=== PATIENT | female | born 1980 | race Hispanic/Latino ===

== ENCOUNTER → 2018-07-13 15:29 | Outpatient (CLI) | payer BC, SELFPAY ==
[2018-07-16 10:10] LABS: HPV HC, High Risk Negative (Negative)
== END ==
PROVIDERS: Visit Provider Obstetrics & Gynecology
DX: Z12.4 Encounter for screening for malignant neoplasm of cervix (principal)
CPT/HCPCS: 87624; 88175; G0145

== ENCOUNTER 2018-10-24 21:40 | Emergency (ER) | payer BC, SELFPAY ==
[2018-10-24 21:41] VITALS: BP 234/84; PULSE 79; RESP 16; TEMP 36.6; O2SAT 99; BMI 18.0
[2018-10-24] MEDS: Diphth,Pertuss(Acell),Tet Vac 0.5 ML Vial IM (22:18)
--- NOTE | 2018-10-24 22:45 | ED.VISSUMM ---
- ER Visit Summary Date of Service: 10/24/18 Chief Complaint: Thumb laceration History of Present Illness: The patient is a 38 F presents to the emergency department with laceration to her right thumb. Patient is right-hand dominant. She was washing dishes, looked up at the window, and incised her finger on a knife. It happened earlier today. She cannot get to stop bleeding so she presented here. The patient is otherwise healthy. She is on no daily medications. She is unsure of her last tetanus. Physical Examination: Patient is a 1.5 cm laceration that is C-shaped the distal end of the thumb. There is a small flap. There is mild active bleeding. There is no pulsatile bleeding. Cap refill is normal. Two-point discrimination is preserved. Test Results: [] Emergency Department Course and Treatment: Patient's tetanus was updated. The wound was anesthetized and irrigated. There is no evidence of retained foreign body. It was closed with 4 simple interrupted suture. The patient tolerated this without issue. She was counseled on local wound care. She will be discharged for suture removal in 10 days. Treatment Plan: [] Disposition: Discharge Impression: 1. 1.5 cm thumb laceration with repair This note was generated with [employer] dictation software. It may contain incorrect words, spelling, and punctuation that were not noted in review of the chart prior to signing ED Disposition - Plan for ED Patient: Instructions: ED Laceration Hand Referrals: Care Physician,No Primary [Primary Care Provider] - 10 Day for suture removal
[2018-10-24 23:17] VITALS: RESP 18
== END 2018-10-24 23:18 | disposition home or self-care (01) ==
LOC: ED 22:33
PROVIDERS: Emergency Provider Emergency Medicine
DX: S61.011A Laceration without foreign body of right thumb without damage to nail, initial encounter (principal); W26.0XXA Contact with knife, initial encounter; Y93.G1 Activity, food preparation and clean up; Y92.9 Unspecified place or not applicable; Z72.0 Tobacco use
CPT/HCPCS: 12001; 90471; 90715; 99283

== ENCOUNTER 2019-07-12 13:04 | Emergency (ER) | payer BC, SELFPAY ==
[2019-07-12 13:05] VITALS: BP 137/90; PULSE 103; RESP 18; TEMP 36.8; O2SAT 96; BMI 18.8
[2019-07-12 13:56] LABS: Absolute Lymphocyte Count 3.27 X10^3/uL (0.83-4.51); Absolute Neutrophil Count 4.8 X10^3/uL (2.0-7.7); Basophil# 0.07 X10^3/uL; Basophil% 0.8 % (0-1); Eosinophil# 0.01 X10^3/uL; Eosinophils% 0.1 % (0-5); Hematocrit 44.5 % (37-47); Hemoglobin 14.8 g/dL (12.0-15.0); Lymphocyte # 3.27 X10^3/ul (4.0); Lymphocyte % 38.8 % (19-41); Mean Corp Hgb Conc 33.3 g/dL (32-36); Mean Corpuscular Hgb 33.6 pg (27.0-32.0); Mean Corpuscular Volume 101.1 fL (81-99); Mean Platelet Vol. 9.4 fl (6.2-12.0); Monocyte# 0.29 X10^3/uL; Monocyte% 3.4 % (0-10); NRBC Flagged by Analyzer 0 % (0-5); Neutrophil # 4.77 X10^3/uL (2.7-7.7); Neutrophil % 56.7 % (47-70); Platelet Count 275 K/mm3 (150-450); RBC Distribution Width CV 12.1 % (11.6-14.6); White Blood Count 8.4 K/mm3 (4.4-11.0)
[2019-07-12 13:59] LABS: Internal QC Validated? YES +Cl - CLEAR BKGD; Pregnancy, Serum, hCG Quali. NEGATIVE Negative
[2019-07-12 14:07] LABS: ALB/GLOB Ratio 1.3 RATIO (0.9-2.4); AST(SGOT) 46 U/L (15-37); Alanine Aminotransfer ALT/SGPT 50 U/L (13-56); Albumin, Serum 4.4 g/dL (3.2-5.0); Alkaline Phosphatase 71 U/L (45-117); Anion Gap 10 (5-15); BUN 8 mg/dL (7-18); Calcium,Total 9.4 mg/dL (8.5-10.1); Chloride 106 mmol/L (98-107); EST Glomerular Filtration Rate 84 mL/min (>60); Est Glom Filt Rate - Afr Amer 101 mL/min (>60); Estimated Creatinine Clearance 79.52 ml/min; Globulin 3.5 g/dL (2.2-4.2); Glucose 80 mg/dL (74-106); Potassium 3.5 mmol/L (3.5-5.1); Protein, Total 7.9 g/dL (6.4-8.2); Sodium Level 141 mmol/L (136-145)
--- NOTE | 2019-07-12 14:26 | ED.RN ---
PT WENT TO THE BATHROOM AFTER BEING TOLD WE NEEDED A URINE SAMPLE. PT FORGOT TO PEE IN A CUP
--- NOTE | 2019-07-12 14:55 | ED.RN ---
lab called [facility] of 305. dr pantoja aware
--- NOTE | 2019-07-12 14:56 | ED.VIS.PSYCH ---
History of Present Illness Chief Complaint: Substance Abuse Narrative: Patient presenting secondary to substance abuse, requesting alcohol detox, and potential depression and suicidal ideation. Patient has a longstanding history of drinking alcohol. She drinks daily, last drink was this morning. She drinks heavily, and she is stating that she wishes to stop drinking, and get some help. Patient's is able to tell me that recently this week, the patient was emotional and she grabbed his handgun stating that she was going to shoot herself. Currently the patient is not endorsing that she is suicidal but she is somewhat withdrawn. She denies any other coingestants at this time. She denies any hallucinations. Review of systems otherwise negative. Past Medical History - Allergies and Home Meds Allergies/Adverse Reactions: Allergies No Known Allergies Allergy (Verified 07/12/19 13:04) Primary Care Physician: Care Physician,No Primary [Primary Care Provider] - Past Medical History: - - Depression, alcoholism Smoking Status: Current every day smoker Review of Systems General: Denies: Chills, Fever, Sweats Eyes: Denies: Visual changes - bilaterally, Diplopia ENT: Denies: Rhinorrhea, Sore throat Cardiovascular: Denies: Chest pain, Palpitations Respiratory: Denies: Dyspnea, Cough, Dyspnea on exertion Gastrointestinal: Denies: Abdominal pain, Nausea, Vomiting, Diarrhea, Melena, Hematochezia Genitourinary: Denies: Dysuria, Hematuria, Frequency Musculoskeletal: Denies: Back pain, Extremity Pain Skin: Denies: Rash, Wounds Neurological: Denies: Headache, Weakness, Numbness Psych: Reports: Depression Physical Exam Vital Signs/Narrative: Vital Signs Temp Pulse Resp BP Pulse Ox 07/12/19 13:05 98.3 F 103 H 18 137/90 H 96 Inital Vital Signs reviewed: Yes General: Well nourished, Well developed Head: Normocephalic, Atraumatic Eyes: Perrl, EOMI ENT: Moist mucous membranes, No rhinorrhea Neck: Supple, Nontender Cardiovascular: Regular rate, Regular rhythm, No murmurs Respiratory: No distress, CTA bilaterally, Chest nontender Abdomen: Soft, Nontender, Nondistended, Normal bowel sounds Back: Nontender, Normal Inspection Extremities: Nontender, No Edema Skin: Normal color, No rash Neurological: Alert, Oriented x3, Cranial nerves II-XII grossly intact, Normal Strength, Normal Sensation Psych: Normal Speech Pattern, - - Patient is tearful, clearly intoxicated. Diagnostic/Tx/Re-eval Patient presented secondary to alcohol intoxication and requesting detox. Social work was able to speak with the patient's who also states that the patient put a gun to her head 3 days ago. There is also concern for suicidal ideation at this point, pink slip was filled out. Screening labs were unremarkable except for the patient's alcohol which obviously was significantly elevated. Social work is working on placing the patient for dual diagnosis of alcoholism and depression with suicidal ideation. ED Disposition - Plan for ED Patient: Diagnosis: Alcoholism, Suicidal ideation Referrals: Care Physician,No Primary [Primary Care Provider] -
--- NOTE | 2019-07-12 15:05 | CM.ED ---
SOCIAL WORK INFORMANT: DR. LEACH REASON FOR REFERRAL: MENTAL HEALTH/SUBSTANCE ABUSE-ALCOHOL CHIEF COMPLIANT: PATIENT PRESENTS TO EMERGENCY DEPARTMENT TEARFUL AND STATING LAST DRINK WAS THIS MORNING. PATIENT REPORTS WAS HELP WITH MENTAL HEALTH AND SUBSTANCE ABUSE. MARITAL STATUS: LIVING SITUATION: HOME WITH AND CHILDREN AGES, 20, 17 AND 16. 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 MENTAL HEALTH TREATMENT/HISTORY: PATIENT WITH HISTORY OF ANXIETY AND DEPRESSION. PATIENT IS PRESCRIBED ZOLOFT. STATES ANXIETY AND DEPRESSION BECAME WORSE 8 YEARS AGO WHEN PARENTS . ABUSE ISSUES: PATIENT DENIES ANY HISTORY OF EMOTIONAL, PHYSICAL OR SEXUAL ABUSE. SUBSTANCE ABUSE HISTORY: PATIENT WITH HISTORY OF ALCOHOL USE. REPORTS PATIENT WAS SOCIAL DRINKER WHEN SHE WAS YOUNGER AND OVER LAST 8 YEARS PATIENT HAS BECOME DEPENDENT AND ABUSES ALCOHOL. STATES HAS FOUND BOTTLES ALL THROUGHOUT THE HOUSE. PATIENT STATES DOES NOT WANT TO CONTINUE DRINKING. LAST DRINK WAS THIS MORNING. PATIENT BELIEVES TO BE DRINKING TO COPE WITH MENTAL HEALTH. MENTAL STATUS EXAM: ORIENTATION- PATIENT A&OX3 MEMORY- FAIR APPEARANCE/GENERAL BEHAVIOR: DISHEVELED, AGITATED MOOD/AFFECT: DEPRESSED, TEARFUL, ANXIOUS COMMUNICATION PATTERN: RESPONDS TO QUESTIONS THOUGHT PROCESS: APPROPRIATE JUDGMENT: FAIR RISK TO SELF/OTHERS: SUICIDAL: PATIENT DENIES SUICIDAL IDEATION, PLAN OR ATTEMPT. MET WITH THIS WORKER OUTSIDE OF ROOM AND STATES 4 DAYS AGO, PATIENT GRABBED 'S HAND GUN AND WAS MAKING SUICIDAL COMMENTS. REPORTS HAS GUNS AND AMMUNITION LOCKED UP. CONCERNS FOR PATIENT'S MENTAL HEALTH AND SAFETY. HOMICIDAL: PATIENT DENIES ANY HOMICIDAL IDEATION. ASSESSMENT: MET WITH PATIENT AND IN ROOM. INTRODUCED ROLE AND REASON FOR REFERRAL. PATIENT GAVE PERMISSION FOR THIS WORKER TO SPEAK OPENLY WITH PRESENT. PATIENT TEARFUL IN BED AND REQUESTING ANSWER MOST QUESTIONS. PATIENT DOES REPORTS HISTORY OF ANXIETY AND DEPRESSION AND IS PRESCRIBED ZOLOFT. PATIENT DENIES ANY SUICIDAL OR HOMICIDAL IDEATION. PATIENT STATES HAS BEEN ABUSING ALCOHOL AND LAST DRINK WAS THIS MORNING. PATIENT STATES WANTS HELP WITH MENTAL HEALTH AND SUBSTANCE ABUSE. MET WITH PATIENT'S OUTSIDE OF ROOM PER REQUEST. STATES 4 DAYS AGO PATIENT GRABBED HAND GUN AND WAS MAKING SUICIDAL COMMENTS. STATES PATIENT HAS BEEN MORE DEPRESSED AND CONTINUES TO SELF MEDICATE WITH ALCOHOL. BELIEVES PATIENT WOULD BENEFIT FROM INPATIENT TREATMENT. COLLABORATION WITH DR. LEACH. THIS WORKER TO MAKE REFERRAL FOR INPATIENT TREATMENT FOR DUAL DIAGNOSIS. PATIENT IS IN AGREEMENT WITH PLAN. PLAN: REFER FOR INPATIENT MENTAL HEALTH AND SUBSTANCE ABUSE TREATMENT. Rudi GODWIN MSW, TOP CARRIER.
[2019-07-12] MEDS: Ibuprofen 200 MG Tablet PO (15:44)
--- NOTE | 2019-07-12 15:45 | CM.ED ---
SOCIAL WORK REFERRAL HAS BEEN CALLED AND FAXED TO ARIANNA WITH [facility]. [facility] WILL REVIEW AND GET BACK TO THIS WORKER. AWAITING ACCEPTANCE. Rudi GODWIN, PERSONAL LINES APPRAISER, ASSISTANT FAMILY TEACHER.
[2019-07-12 15:58] VITALS: BP 110/83; PULSE 75; RESP 16; O2SAT 97
[2019-07-12 16:15] LABS: Amphetamine Urine VISTA NEGATIVE (<1000 ng/mL); Barbiturate Urine VISTA NEGATIVE (< 200 ng/mL); Benzodiazepine Urine VISTA NEGATIVE (< 200 ng/mL); Cocaine Urine VISTA NEGATIVE (< 300 ng/mL); Ecstacy Urine VISTA NEGATIVE (< 500 ng/mL); Methadone Urine VISTA NEGATIVE (< 300 ng/mL); PCP Urine VISTA NEGATIVE (< 25 ng/mL); THC Urine VISTA NEGATIVE (< 50 ng/mL); Vista UDS pH Range 5
--- NOTE | 2019-07-12 16:42 | CM.ED ---
SOCIAL WORK CALL FROM STEFFANIE WITH [facility], PATIENT ACCEPTED BY DR. LEWIS AND WILL BE UNDER THE CARE OF DR. TOBIAS TO THE 1600 UNIT BED 9B. NURSE TO CALL REPORT TO . STAFF UPDATED. PATIENT HAS BEEN PINK SLIPPED AND COPY FAXED. PATIENT AND UPDATED. ALL QUESTIONS ANSWERED, EMOTIONAL SUPPORT AND ENCOURAGEMENT PROVIDED. EXHIBIT BUILDER TO SET UP TRANSPORT. Rudi GODWIN, SEED ANALYST, CARD SCRAPER.
[2019-07-12 17:25] VITALS: BP 110/83; PULSE 75; RESP 16; O2SAT 97
== END 2019-07-12 18:53 ==
LOC: ED 14:25
PROVIDERS: Emergency Provider Emergency Medicine
DX: F10.20 Alcohol dependence, uncomplicated (principal); Y90.9 Presence of alcohol in blood, level not specified; F32.9 Major depressive disorder, single episode, unspecified; R45.851 Suicidal ideations; F17.200 Nicotine dependence, unspecified, uncomplicated
CPT/HCPCS: 80053; 80307; 80320; 84703; 85025; 99284; A4216; G0480

== ENCOUNTER 2019-07-21 09:00 | Outpatient (RCR) | payer OTHER, SELFPAY ==
--- NOTE | 2019-07-21 09:04 | BH.COMM_ITS ---
Communication Note - Communication with Client Communication Note: Therapist met with pt to complete initial paperwork. C ompleted [place] Suicide Risk assessment. No imminent risk noted. Client reported in the past month she has had passive suicidal ideation with one incident in which she was intoxicated and began to fear ability to maintain safety. Pt shared that she does not remember what exactly occurred but remembers texting her and telling him to buy a safe for their guns as she was unsure if she would be able to maintain her own safety otherwise. Reports that she believes she was to intoxicated to actually find the gun before her came home which prevented her from acting on these thoughts. Client reported her three sons and family keep her from killing herself. Client stated she has not had any suicidal thoughts since this incident occurring last week. No active suicidal ideations, plan, or intent. Motivated for treatment and hopeful. Client denies history of any suicide attempts or self-injurious behaviors. However, client does have a history of substance abuse via [place] which is an additional risk factor as she was intoxicated at the time of suicidal gesture occurring on the previous week. Client reports there are guns in the home; however, denies access to weapons as they have been locked in a safe by her . Reports ability to keep herself safe today. Agreeable to call crisis or go to the ER should she feel unable to keep herself safe.
--- NOTE | 2019-07-21 09:05 | BH.SGPN.GN ---
Behaviors/Verbalizations/Mental Status: [] Eye contact is good. Motor activity is appropriate. Appearance is casual. Speech is Appropriate. Mood is anxious. Affect is congruent. Thoughts are linear and logical. No evidence of psychosis. Reviewed daily check in sheet and no reports of suicidal ideations or intent. Client Response/Progress/Benefit: [] Pt participated when prompted. Introduced herself to the group as this was her first IOP group. Tearful. Stated that she is in the IOP to learn better ways to manage her anxiety and depression. Stated that she was sent to a bad place referring to inpatient hospitalization due to the severity of her symptoms which was a wake up for her. Group was welcoming and provided encouragement. No progress noted as this was first day in PHP. Will continue in PHP to maintain safety, prevent decompensation, and increase healthy coping. Narrative Note: []
--- NOTE | 2019-07-21 10:12 | BH.NA_ITS ---
Physical Data - Vital Signs Pulse Rate: 88 Respiratory Rate: 16 Blood Pressure: 98/58 - Height/Weight Height: 1.7 m Weight:: 56.699 kg Weight in Pounds: 125.0 lbs Current Medication Compliance - Medication Compliance Do you take your medication as prescribed?: Yes Nutritional History - Appetite Nutritional Instructions:: If client shows signs of a swallowing problem, weight change of 10 pounds or more in the last month, or is on a diabetic diet, the physician will review and request a dietitian consult, as appropriate. All unintentional weight loss will be referred to the physician for decision on need for dietitian consult. Describe your appetite:: Good - client states she has noticed an increase in her appetite since starting new medications during hospitalization at [facility] Have you noticed a change in your eating habits lately?: Yes Functional Assessment - Sleep Pattern Describe any problems with sleeping: Client states she felt she was sleeping good during hospitalization at [place], states since home she sleeps maybe 5 hours per night. Client states her anxiety makes it hard to sleep. - Activities Motor Activity:: Functional Sensory/Communication Assess - Communication Problems Do you have difficulty understanding what people are saying?: No Medical Problems/History - Pain Assessment Do you have acute or chronic pain?: No Surgical History - Surgical History Have you had any surgeries? If so, list type and date:: Yes - tubal ligation, breast implants in 2018 Substance Abuse - Substance Abuse Please describe substance abuse in the last 30 days:: Client states she has been sober of alcohol since 07/12/19. Client states she became a heavy alcohol user in 2012 and her use increased even more from 2017 until now. Client states she has had small periods of sobriety over the years. Client states she was drinking 1-2 large containers of vodka per day. Client states she quit smoking cigarettes on 07/12 as well, states she was smoking 2-3 cigarettes per day. Client denies substance use. Mental Status Summary - Mental Status Significant Findings/Observations on Appearance and Mood:: Client is alert and oriented x 4. Client is casually dressed and well-groomed. Client is cooperative with assessment and makes good eye contact during conversation. Client's voice rate and volume are normal and speech is coherent and spontaneous. Client appears mildly anxious. Client with appropriate affect. Client makes logical associations and has normal processing. Client denies delusions/hallucinations and none evident at this time. Client denies SI. Client with good attention and concentration during assessment. Suicide Assessment - Suicidal Ideation Are you currently or have you been suicidal in the past?: No Suicidal Intentional Rating Scale (SIRS): Suicidal thoughts (past) Physician Notification: If Active suicidal thoughts/Will not contract for safety is checked, contact physician and document in the Physician Notification section below. Past Psychiatric History - MH Treatment Hx Past Psychiatric Medications:: Serokimber, Ativan, Xanax, Prozac Age of first mental health symptoms: Client states she was diagnosed with depression about 15-16 years ago when her son was born. Describe (age, circumstance, etc) any past hospitalizations: Client was hospitalized from 07/12/19-07/16/19 at [facility] with depression, a suicidal gesture of holding a gun to her head and alcohol use. Client has no other psychiatric hospitalizations. Current providers for mental health treatment (counselor, psychiatrist, case briefer, etc.): None. Fall Risk Assessment - Age Age: Less than 60 - Mental Status Mental Status: Willing & able to ask for assistance when needed - Physical Status Physical Status: No problems - Impairments Impairments: None - Elimination Elimination: Continent AND independent - Gait or Balance Gait or Balance: Walks independently - Hx of Falls History of falls in the past 6 months: No known history - Medications/Substances Psychotropics:: Antidepressants Medications/substances used within the past 24 hours or ordered to administer: 1-2 of the medications/substances listed above - Total Score Total Points:: 1 RN Summary of Impressions - Impressions Recommendations: Include psychiatric and medical issues, treatment planning recommendations, and discharge planning needs. Impressions: Psychiatric Issues: major depressive disorder severe without psych osis, generalized anxiety disorder, alcohol use disorder severe Impressions: Discharge Planning Needs: Client moved to [place] from [place] about 1 year ago. Client has seen an QUALITY CONTROL CLERK here who prescribed her Zoloft. Client has not established PCP care here. Client states she was too anxious to go to a new office prior to her hospitalization. Client has called her insurance to see what local providers are covered. Discussed with client need to establish PCP care locally, client voices understanding. - Level of Care How do the client's current symptoms and functional deficits support need for this level of care?: Client states she has been having feelings of depression for years, but symptoms got worse in the last 2 weeks. Client states that recent stressors included talking to her estranged father for the first time in several years, her son moving here, and her younger son having emotional relationship issues. Client states she has been using alcohol for many years as a coping mechansim and prior to hospitalization she had been on a 3 day alcohol binge. Client was taken to the emergency department on 07/12/19 by her with alcohol intoxication and reported days prior to that, client had held a gun to her head. Client reports feelings of being withdrawn, low energy, panic attacks. Client states she last had panic attacks on 07/17 and 07/18, stating she had feelings of sweating, uncontrollable crying, tremors, and shortness of breath during episodes. Client denies SI at this time. PHP will promote gains and prevent further decompensation while providing social support and skills training.
[2019-07-21 12:00] VITALS: BP 98/58; PULSE 88; RESP 16
--- NOTE | 2019-07-21 12:40 | PCM.BH.PSYEV ---
Psychiatric Evaluation - Initial Evaluation Initial Evaluation: History of Present Illness: [] Patient is a 39-year-old female with a history of major depressive disorder and alcohol use disorder who was admitted to [facility] from July 12 to July 16, 2019. She was admitted due to an worsening of her depression and increase in alcohol use and suicidal ideation with a plan to overdose on pills. This was the patient's first psychiatric admit although she has had 2 past admissions to medical floors for falls and alcohol use disorder/withdrawal. The patient says that this recent worsening of her mood was triggered by a conversation she had with her estranged father. This upset her and made her feel anxious and she self medicated with alcohol. She says she drank alcohol for 3 days straight.. She knows she has a problem with alcohol and has known this for about the past 2 years. She has been sober from alcohol for 9 days now since she went in the hospital and this is the first time that she has ever tried to quit using alcohol. She does not plan to use AA because she does not feel is necessary. She currently has been for 17 years and lives in a house that they rent with her , 3 sons and one son's girlfriend. 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 She was on Zoloft for several weeks prior to her admission but stopped using the Zoloft also several days prior to being admitted to [facility]. She has anxiety and describes her self as a worrier and believes that she does self medicate with alcohol. Discussed I discussed with the patient that sometimes withdrawal from alcohol when you are drinking heavily can feel the same as anxiety and she understands this. She has decreased sleep where she gets asleep fairly easily but wakes up after 5 or 6 hours of sleep. She said this is gone on for a long time. She does not nap during the day. She did experience a blackout for the 3 days prior to being admitted to the hospital on July 12. For primary support she has her . Her biggest stress she says is drinking or not drinking. She. She had 2 panic attacks in the weeks before her admission but denies any panic attacks since admission. She denies any self-harm, eating disorder, seizures or head trauma. She said that she never feels that she is good enough for her and she says that her children are the only reason she wakes up in the morning. She has 3 sons age 20, 17 and 16 years of age. She denies any suicidal ideation now. Denies any thoughts of self-harm or homicidal ideation. Denies any history of eating disorder or OCD. Her appetite however has been somewhat decreased when she is anxious and when she drinks and she lost weight in the past due to anxiety but has recently put weight on in the past year. She may have had some PTSD symptoms when her got in a severe motor vehicle accident on his motorcycle in the past. She does have some flashbacks, avoidance and occasional reexperiencing from this but it has improved with time. Her current stressors also include finding out since her parents 2 years ago that some family issues came out and have upset her. She found out that her father is HIV positive and this she says is what causes her to drink. Current Psychiatric Medications: [] Zoloft 50 mg p.o. daily; Campral 666 mg p.o. 3 times daily; Remeron 45 mg p.o. nightly; BuSpar 20 mg p.o. 3 times daily. Doxepin 50 mg po nightly. She has been on the Zoloft about 3 weeks and all the other meds she has only been on for about 1 week. She is tolerating her medications well with some nausea. Past Psychiatric History: [] Has no prior psych admits except for the one above in June 2019. She has 2 medical admissions after falls with alcohol abuse. She took Zoloft in the past at age 23 for depression and it was helpful. In 2016 she took Prozac, Seroquel, and Xanax for depression and decreased sleep. She says the Seroquel did help her sleep. No other psych medications. Substance Use History: [] Patient first used alcohol around age 14. Her use became heavier since 2012 and from 2012 up until her admission in June 2019 she was using either a sixpack every day or 750 mL daily of vodka. She does have a history of blackouts and falls but no DTs. And no seizures. She is used to smoke 3 cigarettes a day for 10 years but quit cigarettes 9 days ago. She used marijuana many years ago but no longer uses it. No rehab ever. Allergies: [] No known allergies Medications: [] Psych medications as above. No other meds Past Medical History: [] Patient has a history of a few falls and injuries due to alcohol use. She denies any other health conditions. She had a bilateral tubal ligation in the past. She is a 3 para 3 and has regular menstrual periods. Family Psychiatric History: [] Her mother is 69 years old and her father is 69 years old. Mother, brother, sister, paternal aunt have depression. Another paternal aunt committed suicide. Both grandfathers and the patient's father have alcoholism. Personal/Social History: [] Patient was born and raised in [place] and moved to [place] from age 13 to age 38. She moved back to [place] 1 year ago for her 's work. She feels she is doing better in [place] than she was in [place]. She describes her childhood as good. She denies any physical, verbal or sexual abuse. School was very hard for her and she feels that she has ADHD but was not formally diagnosed. 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 Her parents about 3 years ago and a lot of family stuff was revealed that has really affected the patient in a negative way. He has been to her for 17 years but feels that she does not deserve him. She lives with her 3 sons and 1 of the sons girlfriends and she loves her sons and they all get along in the house quite well. Legal History: [] Review of Systems: [] Complains of some tremors and neck pain and anxiety but review of systems is otherwise negative. Vital Signs: [] Good in nurse's notes and stable Mental Status Examination: [] Patient is a 39-year-old thin michelle female who is casually dressed and groomed with good hygiene. She has no psychomotor agitation or retardation. She has good eye contact and is cooperative during the interview. Her mood is somewhat depressed. Affect is constricted. Thought process is goal-directed and organized. Thought content: No evidence of suicidal or homicidal ideation. No passive thoughts of . Reality testing is intact. Concentration is fair. To normal. Intelligence is average. Judgment: Intact. Impulsivity: Low to moderate. Insight: Some present but limited. Diagnoses: [] [place] I: [] Major depressive disorder recurrent severe without psychosis; generalized anxiety disorder; alcohol use disorder, severe (no alcohol use for 9 days); [place] II: [] Deferred [place] III: [] Chronic neck pain due to herniated disks Folsom IV: [] Primary support and substance issues Plan: [] We will start the PHP program at the [facility] in behavioral health as the structure, support, education, group and individual therapy hopefully will prevent worsening of the patient's symptoms and will prevent rehospitalization. The risk, options, and possible complications and side effects of the medications were discussed with the patient and she understands and accepts these. Discussion was had about the dose of doxepin at 50 mg which is more of an antidepressant dose. Since the patient is not sleeping more than 5 hours straight on this medication at this dose the patient was given the option of decreasing the doxepin and increasing the Zoloft. Doxepin is in it is a tricyclic antidepressant and as such has more side effects and risks in overdose. The doxepin will be decreased to 20 mg and a prescription was given for 10 mg, 2 p.o. nightly. After she decreases the doxepin she will increase the Zoloft to 100 mg p.o. daily. Prescription was given for this also. Patient understands the importance of staying sober. I recommended strongly that she consider doing AA because the more support she has and this is the better off she will be. She says that her has talked with [facility] in [place] and that is all set up for her when she is finished here. If the patient does not sleep well with doxepin at some point I will consider weaning the doxepin and adding Seroquel later because it did help her sleep several years ago according to the patient. Also I will follow-up with up with the patient in 1 week. She will continue to follow-up with outpatient providers.
--- NOTE | 2019-07-21 13:01 | BH.DR.ITP ---
Initial Treatment Plan - Patient Information Visit Information: ADMISSION DATE: EXPECTED LOS: 4-6 weeks - Problems/Symptoms Problem #1:: Anxiety Symptom:: worry, panic feelings, rumination, panic attacks Problem #2:: Depression Symptom:: Sadness, suicidal ideation, biological disruption of sleep
--- NOTE | 2019-07-21 13:38 | BH.MDN ---
Multi-Disciplinary Note - Note 30-min Individual Time Started:: 12:30 Date: 07/21/19 Purpose of session/treatment goals addressed:: Purpose of session was to assess pt's current symptoms and stressors. Session focused on gathering background information and establishing goals for [facility] level of care. Eye Contact:: Good Motor Activity:: Appropriate Appearance:: Casual Speech:: Appropriate Mood:: Anxious, Depressed, Other - tearful Affect:: Congruent Thoughts:: Linear, No evidence of hallucinations/delusions noted Staff Interventions:: Therapist used open ended questions to elicit pt's current symptoms and stressors. Therapist provided support by using active listening and validating emotions. Used probing questions to gather addtional background information about what led to pt seeking [facility] level of care. Worked collaboratively with pt to establish treatment goals for [facility] level of care. Client Response:: Pt reported she has had a serious drinking problem since 2012 when she found out her parents were getting a divorce and that her dad is HIV positive. Pt shared her mom knew for 12 years that pt's father was HIV positive. Pt stated in that same time frame she found out her parents were technically . Pt reported she felt betrayed by her parents and lied to for many years of her life. Pt reported prior to 2012 she was already problem drinking since 2007. 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 Pt reported that is when she started drinking as a way to cope. Pt stated in 2012 she started drinking at work, drinking before taking her children to events and would show up drunk to her childrens events. Pt reported she minimized her drinking and didn't get help until was hospitalized at [facility] a week ago. Pt stated prior to hospitalization her father called her for the first time since 2012 which led pt to go on a 3 day binge of drinking from wake up until she went to bed. Pt stated her son called the crematorium operator which led pt to be taken to the hospital and put into inpatient detox. Pt reported she is 9 days sober. Pt shared she wants to stop drinking because recognizes she is going to lose her family if she doesn't stop. Pt stated her family told her if she drinks again then they are leaving her. Pt reported she needs that boundary. Pt shared feeling guilt for all she put her children through. Pt stated her middle son has a lot of anger towards her. Pt reported she wants to repair relationships she has ruined due to her drinking. Pt shared her main goals for PHP is to maintain sobriety, continue her routine, and learn healthy coping skills to replace use of alcohol. Pt agreeable to engage in a self-care activity today and to identify 3-5 positives or things she is grateful for. Risks/Concerns:: Pt denies current suicidal ideation, plan or ideation. However, 1 1/2 weeks ago pt was suicidal and had put her 's gun to her head. Pt also has been drinking everyday since 2012 and 9 days is the longest she has been sober since 2012. Will continue to monitor her lethality throughout program. Pt agreeable to call 911 or go to nearest emergency room if feel unable to maintain safety. Pt states there is no alcohol in her home and she doesn't have access to any money to purchase alcohol. Progress Toward Goals/Plan:: No progress observed given today is first day in PHP. Session focused on establishing goals for PHP. Pt to continue PHP to maintain sobriety, increase healthy coping and prevent decompensation. Time Stopped:: 13:05
--- NOTE | 2019-07-21 14:40 | BH.PSA_ITS ---
Source of Information - Presenting Problems/Circumstances Problems, Referral Source, Mental Status, Client: Pt referred to [facility] following inpatient psychiatric admission at [facility] from 07/12/19 - 07/16/19 for worsening depression, plan to overdose via medications, and increased alcohol use. The patient says that this recent worsening of her mood was triggered by a conversation she had with her estranged father. This upset her and made her feel anxious and she self medicated with alcohol. She says she drank alcohol for 3 days straight. She knows she has a problem with alcohol and has known this for about the past 2 years. She has been sober from alcohol for 9 days now since she went in the hospital and this is the first time that she has ever tried to quit using alcohol. Psychiatric Presentation - Psych Issues & Need for Admission Psychiatric Issues:: hx of alcohol abuse, anxiety, and depression. Past Psychiatric History - Treatment Hx Treatment History: Only treatment hx is her most recent hospitalization in June 2019. First hospitalization:: [facility] for SI, depression, and alcohol use Most recent hospitalization:: June 2019 [facility] ECT Therapy:: No Current providers for mental health treatment (counselor, psychiatrist, disease case manager, etc.): denies any current providers Development & Family of Origin - Childhood Significant Childhood Events: describes childhood and upbringing as good. - Family Who currently lives in your home?: Currently lives in her home with her , 3 sons, and her oldest sons girlfriend. Describe family composition:: Her parents about 3 years ago and a lot of family stuff was revealed that has really affected the patient in a negative way. Pt has been estranged from her father for the past 3 years. She has been to her for 17 years. She has 3 sons (16,17,20) whom she loves and is working on repairing her relationships with them since being sober. - Family History Family Hx of Psychiatric or AOD Problems: Mother, brother, sister, paternal aunt have depression. Another paternal aunt committed suicide. Both grandfathers and the patient's father have alcoholism. Ethnicity - Culture Do you identify yourself with any particular cultural, ethnic background, or community?: No - Sexuality Sexual Orientation: Heterosexual Spirituality - Yarsanism Do you currently identify with any organized baptism?: None Mental Status - Memory Recent Memory: Poor Remote Memory: Poor - Concentration Concentration: Poor - Eye Contact Eye Contact: Good - Speech Speech: Articulate - Thought Process Thought Process: Logical, Ruminations Insight: Fair Judgment: Fair Behavior: Anxious - Orientation Orientation: Time, Person, Place, Situation - Appearance Appearance: Neat/clean - Mood Mood: Anxious, Dysphoric/tearful - Affect Affect: Alert Suicide Assessment - Suicidal Ideation Have you ever felt like hurting yourself?: Yes Were you using ETOH/drugs at the time?: Yes Suicidal Intentional Rating Scale (SIRS): Suicidal thoughts (past) - June 2019 had suicidal thoughts with plan to overdose on medications. Physician Notification: If Active suicidal thoughts/Will not contract for safety is checked, contact physician and document in the Physician Notification section below. Violent Behavior/Abuse History - Homicidal Ideation Do you have any homicidal thoughts? If so, explain:: No Is there a known potential victim? If yes, who:: No - Abuse Have you ever been abused?: No - Life Events Are there any other significant life events?: Hardships - Rebuilding relationships since being sober. Identifies stressed about finding out her father has HIV and was hiding it from the family for years. - Safety Do you ever feel threatened in your home? If yes, describe:: No Adult Social History - Age 16 to Present Describe your current support system:: identifies her as her primary support person. Substance Use - Substance Substance Use Type: Alcohol - Patient first used alcohol around age 14. Her use became heavier since 2012 and from 2012 up until her admission in June 2019 she was using either a sixpack every day or 750 mL daily of vodka. Has been sober for 9 days., Marijuana - has used marijuana in the past, but hasn't used in years., Tobacco - used to smoke 3 cigarettes a day for 10 years but quit cigarettes 9 days ago - Withdrawal History Withdrawal History: Blackouts, Other (See comments) - has been admitted to the hospital two times for falls due to being intoxicated. - IV Substance Use Do you have a history of IV use?: denies Education & Occupational Histo - Education What is your level of education?: High School - Occupation List any current or past employment:: [employer] for 15 years, but hasn't worked in the past 2 years. Legal History - Records Have you had any past legal charges?: No Do you have any current legal charges?: No Have you ever been incarcerated? If yes, describe:: No - Court Orders Have you had any past court orders for psychiatric treatment?: No Do you have a present court order for psychiatric treatment?: No Problem Checklist - Current Problem Areas Problem List: Nutritional/Eating pattern changes - increased appetite and weight gain., Depressed mood/sad, Anxiety, Inattention, Impulsivity, Substance use - has been sober for 9 days., Additional psychosocial stressors - estranged relationship with father. Diagnoses - Diagnoses Diagnosis #1:: F33.2 Major depressive disorder recurrent severe without psychosis Diagnosis #2:: Generalized Anxiety Disorder Diagnosis #3:: Alcohol use disorder, severe (sober for 9 days) Interpretive Summary - Interpretive Summary Interpretive Summary: Patient is a 39-year-old female with a history of major depressive disorder and alcohol use disorder who was admitted to [facility] from July 12 to July 16, 2019. She was admitted due to worsening of her depression, increase in alcohol use and suici carole ideation with a plan to overdose on pills. This was the patient's first psychiatric admit although she has had 2 past admissions to medical floors for falls and alcohol use disorder/withdrawal. The patient says that this recent worsening of her mood was triggered by a conversation she had with her estranged father. This upset her and made her feel anxious and she self medicated with alcohol. She says she drank alcohol for 3 days straight. Pt reports her alcohol use has worsened since 2012 with her drinking at it?s most severe for the past two years. She has been sober from alcohol for 9 days now since she went in the hospital and this is the first time that she has ever tried to quit using alcohol. Pt has anxiety and describes herself as a worrier and believes that she does self-medicate with alcohol. She has decreased sleep where she gets asleep fairly easily but wakes up after 5 or 6 hours of sleep. She said this is gone on for a long time. Pt describes her biggest stressor is drinking or not drinking. Pt had 2 panic attacks in the weeks before her admission but denies any panic attacks since admission. Pt reported she never feels that she is good enough for her and she says that her children are the only reason she wakes up in the morning. Pt denies any suicidal ideation now. Denies any thoughts of self-harm or homicidal ideation. Her appetite however has been somewhat decreased when she is anxious and when she drinks and she lost weight in the past due to anxiety but has recently put weight on in the past year. She may have had some PTSD symptoms when her got in a severe motor vehicle accident on his motorcycle in the past. She does have some flashbacks, avoidance and occasional reexperiencing from this but it has improved with time. Her current stressors also include finding out since her parents 2 years ago that some family issues came out and have upset her. She found out that her father is HIV positive and this she says is what causes her to drink. Treatment Plan Recommendations - Recommendations Guidelines: Special needs identified to be included in the development of an individualized treatment plan regarding past psychiatric history and treatment, developmental events, family relationships/events/culture, past and/or current educational, occupational, social, and residential experience, and legal status. Recommendations:: Pt recommended IOP level of care due to recent inpatient psychiatric admission, worsening depression and anxiety, recent suicidal ideation, and alcohol abuse since 2013.
--- NOTE | 2019-07-21 15:39 | BH.MTP_ITS ---
[facility] - Patient Information Program Physician:: Dr. Pascal Primary Therapist:: Rylee Alvarez, [facility] - Psychiatric Diagnoses Psychiatric Diagnoses:: Major depressive disorder recurrent severe without psychosis; generalized anxiety disorder; alcohol use disorder, severe (no alcohol use for 9 days) Diagnosis Code(s):: F33.2 - Estimated LOS Estimated LOS (in weeks):: 2 Problem/Goal #1 - Problem/Goal #1 Stated Goal:: Stabilize anxiety level while increasing ability to function and decreasing ruminative thoughts on a daily basis through Partial Hospitalization Program. Description of Barriers: Pt's history of alcohol addiction with only 9 days of sobriety. Pt's distorted thoughts, negative thoughts, lack of healthy coping skills, and interpersonal conflicts. Functional Impact: Pt has been using alcohol as a coping skill to manage her anxious and depressive symptoms. Pt's unresolved mental health problems and alcohol addiction has impacted pt's ability to maintain a job, negatively impacting familial relationships and has kept her from making social connections. Goal Relevant Strengths/Supports: Pt is intelligent, resilient, and expresses motivation to get better. - Objectives Objective #1 Stated Objective: Client will learn and utilize 2-3 healthy coping strategies to manage anxious symptoms. Interventions: Therapist will assist client in learning internal coping strategies to manage anxious symptoms, along with helping client identify triggers. Discharge Criteria: Therapist will assist client in learning internal coping strategies to manage anxious symptoms, along with helping client identify triggers. Target Date: 07/30/19 Objective #2 Stated Objective: Pt will decrease anxious symptoms AEB pt?s score on the DSM 5 cross-cutting measure improve pt?s daily functioning. Interventions: Through groups and individual therapy, pt will be provided education about anxiety?s impact on body and common physiological reaction to anxiety. Therapist will teach pt appropriate breathing techniques and build healthy coping skills to manage daily anxieties. Discharge Criteria: Pt will have met this goal when pt?s score on the DSM 5 cross cutting measure for anxiety has been decreased and per pt?s report daily functioning has improved. Target Date: 07/30/19 Problem/Goal #2 - Problem/Goal #2 Stated Goal:: Client will reduce depression, feelings of hopelessness, and suicidal ideation due to Major Depressive Disorder through Partial Hospitalization Program. Description of Barriers: Pt's history of alcohol addiction with only 9 days of sobriety. Pt's distorted thoughts, negative thoughts, lack of healthy coping skills, and interpersonal conflicts. Functional Impact: Pt has been using alcohol as a coping skill to manage her anxious and depressive symptoms. Pt's unresolved mental health problems and alcohol addiction has impacted pt's ability to maintain a job, negatively impacting familial relationships and has kept her from making social connections. Goal Relevant Strengths/Supports: Pt is intelligent, resilient, and expresses motivation to get better. - Objectives Objective #1 Stated Objective: Work with client to develop a ?crisis plan? which includes emergency telephone numbers, 3-4 coping strategies for SI, lists of supports, positive aspects of life, and motivations. Work with client to identify 3-4 sources or triggers to suicidal ideations to increase insight. Identify 3 effective thought-stopping skills to utilize. Interventions: Therapist will provide list of crisis phone numbers. Therapist will work with client to identify effective coping strategies and steps to take in time of mental health crisis. Discharge Criteria: Client will have achieved this goal once he completes his safety plan and is able to utilize coping and thought replacement strategies. Target Date: 07/30/19 Objective #2 Stated Objective: Pt will decrease depressive symptoms AEB pt?s score on the DSM 5 cross-cutting measure and improve pt?s daily functioning. Interventions: Through groups and individual therapy, pt will be provided with education on cognitive distortions, mistaken beliefs, and identifying and combating negative self-talk. Therapist will assist pt with getting back into the activities she once enjoyed as well as increasing healthy coping strategies. Discharge Criteria: Pt will have met this goal when pt?s score on the DSM 5 cross cutting measure for depression has been decreased and per pt?s report daily functioning has improved. Target Date: 07/30/19
--- NOTE | 2019-07-22 09:06 | BH.SGPN.GN ---
Behaviors/Verbalizations/Mental Status: []Eye contact is good. Motor activity is appropriate. Appearance is casual. Speech is WNL. Mood is euthymic, anxious. Affect is congruent. Thoughts are linear and logical. No evidence of psychosis. Reviewed daily check in sheet and no reports of suicidal ideations or intent Client Response/Progress/Benefit: []Pt responded well to session, actively engaged throughout discussion, willing to process with group. Reports emotion for the day as ?content? and indicated that this is due to more capable of working on her mental health now that she has stopped drinking. Shared that she is currently 10 days sober which is a mental health win for her. Expressed ?I am never going back to that?. Pt noted she does not have many healthy coping skills and is hopeful she will be able to develop some while in PHP tx. Expressed additional win as spending time making dinner with her family and was capable of remaining sober while doing so. Pt appears to lack insight regarding relapse and minimizes the likelihood that she might struggle with urges when taken off of medication currently managing urge-like sx. Recommended continued tx to maintain sobriety, increase coping skill repertoire, and reduce mental health sx severity. Narrative Note: []
--- NOTE | 2019-07-22 10:15 | BH.SGPN.GN ---
Behaviors/Verbalizations/Mental Status: []Client alert and oriented, casually dressed and groomed. Eye contact good. Motor activity appropriate. Speech within normal limits. Affect constricted, mood dysthymic. Thoughts linear, logical, no signs of hallucinations or delusions. Client Response/Progress/Benefit: []Client was an active participant in group discussion and activity. Attentive during psychoeducation and commenting on the quote. Client stated change is difficult because not knowing what's going to happen with the change. Worked with the group to identify barriers to change, which included: worry about what others think, comfort, fear, thinking it's not the right time, and not having resources to change. Client participated along with group in activity where they identified and discussed the emotions related to change. Client was attentive during psychoeducation on the change process. Client reported although change is hard she said it can also be freeing because get to experience something new. Benefited from increased awareness and understanding of emotions, benefits, and barriers related to change. Will continue IOP tx to prevent decompensation, increase use of healthy coping skills, and challenge distorted thoughts. Narrative Note: []
--- NOTE | 2019-07-22 11:16 | BH.SGPN.GN ---
Behaviors/Verbalizations/Mental Status: []Client alert and oriented, neatly dressed and groomed. Eye contact good. Motor activity appropriate. Speech within normal limits. Affect constricted, mood anxious. Thoughts linear, logical, no signs of hallucinations or delusions. Client Response/Progress/Benefit: []Client was an active participant AEB client providing input during discussion and engaging in group activity. Client participated in the activity and processed emotions and barriers associated with making change. Client reported dealing with restrictions, not knowing all the information, and emotions impact how a person handles change. Client engaged during discussion on weighing the pros and cons associated with change and benefited from learning to do so through use of decisional balance sheet. Identified she wants to not drink to cope as the change she wants to make to improve her mental health. Client able to identify the pros of not drinking which included; better relationships with her family, increased safety, and better mental health. Appeared to benefit from gaining awareness of the pros and cons associated with changing her coping skills. Recommended continued PHP tx to promote sobriety, prevent decompensation of depressive symptoms, and increase healthy coping skills. Narrative Note: []
--- NOTE | 2019-07-22 20:22 | BH.MDN ---
Multi-Disciplinary Note - Note 60-min Individual Time Started:: 12:15 Date: 07/22/19 Purpose of session/treatment goals addressed:: Purpose of session was to assess pt's current symptoms and stressors. Other topics included reviewing homework from last session, strategies to improve relationships, and self-care. Eye Contact:: Good Motor Activity:: Appropriate Appearance:: Casual Speech:: Appropriate Mood:: Anxious, Depressed Affect:: Constricted Thoughts:: Linear, Logical, No evidence of hallucinations/delusions noted Staff Interventions:: Therapist used open ended questions to elicit pt's current symptoms and stressors. Therapist reviewed pt's homework from last individual session. Therapist reviewed strategies to help improve relationships. Therapist provided psychoeducation about cognitive distortions and helped pt challenge thoughts. Therapist provided support by using active listening and validating emotions. Client Response:: Pt reported yesterday she was exhausted after leaving [facility]. Pt reported she cooked a meal for her family and spent time hanging out with them. Pt shared previously she would already have been drinking so it's been awhile since she just sat around after dinner and talked with her family. Pt stated she is struggling with her relationship with her mom. Pt reported she easily will get snappy at her mom. Pt shared she sometimes wishes her mom would go back to [place], but knows having her mom home gives her relief while he is at work. Pt reported she recognizes she has a lot of anger towards her mom because of the past, which results in pt being easily agitated. Pt responded well to distorted thoughts being challenged. Pt connected her all or nothing thought patterns impact her ability to see positives, especially within her mother. Pt stated she will attempt to be more mindful of her distorted thoughts. Pt stated she needs to build healthy skills to continue her sobriety. Pt connected with self-care wheel, willing to identify at least 3 self-care activites she will can engage in. Risks/Concerns:: Denies current suicidal ideation, plan or intention to date. Progress Toward Goals/Plan:: Progress noted with continued sobriety, increasing time spent with family, and accomplished small goal of engaging in self-care. Pt continues to struggle with guilt associated with past choices due to addiction. Pt's negative and distorted thoughts negatively impact pt's mental health. Pt to continue PHP to increase healthy coping, maintain sobriety and prevent decompensation. Time Stopped:: 13:10
--- NOTE | 2019-07-26 11:31 | BH.COMM_ITS ---
Communication Note - Communication with Client Communication Note: Pt no showed/no called PHP today. this policy writer sales left voicemail asking pt to return call to ensure everything is okay. Informed pt if do not hear back from her today by 2pm, this policy writer sales will have to contact pt's emergency contact.
--- NOTE | 2019-07-26 11:31 | BH.COMM ---
Communication Note - Communication with Client Communication Note: Pt no showed/no called PHP today. this lyric writer left voicemail asking pt to return call to ensure everything is okay. Informed pt if do not hear back from her today by 2pm, this lyric writer will have to contact pt's emergency contact.
--- NOTE | 2019-07-27 09:04 | BH.SGPN.GN ---
Behaviors/Verbalizations/Mental Status: []Client alert and oriented, casual in appearance. Eye contact good. Motor activity appropriate. Speech within normal limits. Affect congruent, mood euthymic. Thoughts linear, logical, no signs of hallucinations or delusions. Client Response/Progress/Benefit: []Pt responded well to session AEB pt listening attentively to others and openly sharing thoughts and feelings. Pt identified emotion today is happy. Pt stated a mental health positive was using opposite action over the weekend. Pt reported on Sundays she usually sleeps in, but chose to get out of bed to make her son breakfast. Pt shared the son she cooked for yelled at her for messing up his food, but she was proud of herself for not yelling back. Pt stated before her son left for work he went to her and apologized for yelling at her, which she views as a win. Pt stated another mental health positive was spending quality time with her family all weekend. Pt identified her to be current stressor because he has been irritable and grouchy the past couple of days. Progress noted with pt using opposite action and maintaining sobriety. Pt to continue PHP level of care to increase healthy coping, maintain sobriety and prevent decompensation. Narrative Note: []
--- NOTE | 2019-07-27 10:10 | BH.SGPN.GN ---
Behaviors/Verbalizations/Mental Status: []Client alert and oriented, casually dressed and groomed. Eye contact good. Motor activity appropriate. Speech within normal limits. Affect congruent, mood anxious and dysthymic. Thoughts linear, logical, no signs of hallucinations or delusions. Client Response/Progress/Benefit: []Client receptive of session, attentive in discussion and activity. Client discussed the quote and provided input that not managing emotions can lead to turning to unhealthy means of coping such as substance use. Client helped group identify barriers that impact one?s ability to communicate when emotions are high. These barriers included; lack of trust, fear of other?s reactions, learned beliefs and behaviors, past experiences, and distorted thoughts. Client shared that holding in emotions can lead to increased tension with supports. Client participated in the activity and did well to manage her emotions while giving directions and encouragement to others. Client appeared to benefit from increasing awareness of how emotions can impact communication and practicing in the moment coping skills. Progress noted as client has been demonstrating improved use of coping skills and reports improved self-care. Will continue IOP tx to further increase emotion regulation, improve coping and communication, and improve daily functioning. Narrative Note: []
--- NOTE | 2019-07-27 11:15 | BH.SGPN.GN ---
Behaviors/Verbalizations/Mental Status: []Client alert and oriented, neatly dressed and groomed. Eye contact good. Motor activity appropriate. Speech within normal limits. Affect congruent to topic being discussed, mood anxious. Thoughts linear, logical, no signs of hallucinations or delusions. Client Response/Progress/Benefit: []Client attentive and contributing to discussion. Attentive during psychoeducation on 4 zones of regulation. Client agreed with peers that emotions can be retriggered if one does not regulate themselves in a healthy way. Client able to identify how she feels in each zone as well as how she acts in each zone. Client able to identify what behaviors she exhibits when in the different emotional zones. Client also able to identify coping skills she can use to support herself in each zone which included: exercise, cleaning, breathing, and accomplishing something. Client reports belief she is in the ?yellow zone? or the heighten emotional alertness zone today because she feels anxious and slightly irritated. Client shared to regulate her emotions today, client plans to explore different self-help podcasts as these will help her relax and focus on making positive change. Benefited from increased education on zones of regulation or stages of alertness for emotions and healthy coping skills to use for each zone. Will continue PHP tx to promote sobriety, increase mood stability, and reduce intensity of symptoms. Narrative Note: []
--- NOTE | 2019-07-27 22:07 | BH.MDN ---
Multi-Disciplinary Note - Note 60-min Individual Time Started:: 12:15 Date: 07/27/19 Purpose of session/treatment goals addressed:: Purpose of session was to assess pt's current symptoms and stressors. Other topics included: communication skills, self-care, and challenging negative thoughts. Eye Contact:: Good Motor Activity:: Appropriate Appearance:: Casual Speech:: Appropriate Mood:: Dysthymic Affect:: Congruent Thoughts:: Linear, Logical, No evidence of hallucinations/delusions noted Staff Interventions:: Therapist used open ended questions to elicit pt's current symptoms and stressors. Therapist worked with pt to process current relationship issues with . Discussed importance of open and honest communication. Identified strategies to address relationship problems. Reviewed self-care activities. Provided support by using active listening and validating emotions. Client Response:: Pt reported she had a really good weekend spending time with her family. Pt stated she is trying to rebuild her relationships with her boys. Pt shared she is putting forth effort to show her boys, especially her middle son, that she is changing for the better. Pt stated her alcoholism has done a lot of damage to her relationships with her family, but is trying to show her family she is getting better. Pt reported she did set a boundary with her family that she no longer will be cleaning up after them. Pt stated when she was drinking she always cleaned up after everyone. Pt reported she likely did that to compensate for her drinking. pt stated her boys responded well to the boundary. Pt stated her went off on her because she didn't take his comment serious that he wants everyone in the house to turn off the lights when they are done. Pt reported her and her struggle with communicating. Pt stated her husbadn tends to stuff his emotions and then explodes. Pt stated she didn't realize how much the family not turning off the lights in the hosue was impacting her . Pt reported she realizes now her likely felt invalidated becasue she was making the situation as not a big deal. Pt shared she realizes her and her need to go to couples counseling to learn how to work together and adjust to the new normal of her being sober. Pt agreed to talk with her about therapy tonight. Pt agreeable to engage in self-care activity from the self-care wheel provided in previous session. Risks/Concerns:: denies current suicidal ideation plan or intention to date. has maintained sobriety for 16 days. denies urges. Progress Toward Goals/Plan:: Progress with pt maintaining sobriety, setting bounday with family, and trying to rebuild relationship with family. Pt struggling with adjusting to being sober with being able to feel emotions and trying to figure out who she is now that she isn't intoxicated all the time. Pt to continue PHP to maitain sobriety, increase healthy coping and prevent decompensation. Time Stopped:: 13:15
--- NOTE | 2019-07-28 09:10 | BH.SGPN.GN ---
Behaviors/Verbalizations/Mental Status: [] Eye contact is good. Motor activity is appropriate. Appearance is casual. Speech is Appropriate. Mood is euthymic. Affect is full. Thoughts are linear and logical. No evidence of psychosis. Reviewed daily check in sheet and no reports of suicidal ideations or intent. Client Response/Progress/Benefit: [] Pt was an active participant in group discussion. Emotion for today is content. Daily symptom tracker notes 2/5 for anxiety. Shared that she is proud of herself for utilizing skills and thought challenging to better capture manager her frustration yesterday. Notes that this helped her with motivating and helping her son with studying for a test, which he did well on. Talked at length regarding the benefits to improved coping and education through PHP. Also notes that she is 16 days sober. Admits that she struggles at times with building back trust and managing guilt regarding her use in the past. Working on re-building relationships which is proving to be a challenge. Progress noted per pt report. Will continue in PHP to maintain safety, increase healthy coping skills, and improve daily functioning. Narrative Note: []
--- NOTE | 2019-07-28 10:10 | BH.SGPN.GN ---
Addendum entered and electronically signed by Trista Kolb LSW 07/29/19 08:21: Pt was an active participant in both discussion and activity as evidenced by pt providing input throughout, supportive feedback, and attentively listened to others. Group worked together to come up with common negative forces in their lives which can hold them back from growth. Negative forces included: mental illness, negative thoughts, other people?s opinions and behaviors, not managing emotions, and poor choices. Group then worked together to identify common positive forces which help us grow. Theses included: Healthy coping skills, positive support, self-care, positive self-talk and opposite action, and weighing the pros/cons of choices. Pt reported she believes personal growth is something that comes from making the decision to work towards change. Pt was attentive during psychoeducation on the importance of utilizing many aspects of positive forces to help one grow. Benefited from group with increased insight and awareness on the impact of negative and positive forces on mental wellness. Recommended continued tx to reduce mental health sx severity, increase positive change behaviors, and prevent decompensation. Original Note: Behaviors/Verbalizations/Mental Status: []Client alert and oriented, casually dressed and groomed. Eye contact good. Motor activity appropriate. Speech within normal limits. Affect congruent, mood euthymic. Thoughts linear, logical, no signs of hallucinations or delusions. Client Response/Progress/Benefit: [] Narrative Note: []
--- NOTE | 2019-07-28 12:41 | PCM.BH.PN_ITS ---
Progress Note Progress Note: History of Present Illness/Interim History: [] Patient is a 39-year-old female with a history of depression and alcohol use disorder who is seen in follow-up at the [facility] IOP program. The patient says that since I last saw her 1 week ago she feels that she has improved in terms of her mood and anxiety symptoms. She states that she remained sober from alcohol. Her sleep is still not great maybe 5 hours a night or 6. She does feel the program is benefiting her and that she is learning some skills to use to deal with her issues. The patient had never made the changes in her medication that I ordered 1 week ago because she said the doxepin prescription was unable to be filled at the pharmacy. She did not inform us of this. She agrees to make the changes this week to the medications. Current Psychiatric Medications: [] Zoloft 50 mg p.o. daily; Campral 666 mg p.o. 3 times daily; Remeron 45 mg p.o. nightly; BuSpar 20 mg p.o. 3 times daily; doxepin 50 mg p.o. nightly. She has been on the Zoloft about 4 weeks and all the other meds about 1 week. Mental Status Examination: [] Patient is a 39-year-old thin female who is casually dressed and groomed with good hygiene. She has no psychomotor agitation or retardation. She has good eye contact and is cooperative during the interview. Her mood is mildly depressed. Affect is constricted. Thought processes goal-directed and organized. Thought content: No evidence of suicidal or homicidal ideation, hallucinations or delusions. Judgment is intact. Impulsivity: Low to moderate. Insight: Some present but limited. Diagnoses: [] [place] I: [] Depressive disorder, recurrent severe without psychosis; generalized anxiety disorder; alcohol use disorder (no alcohol use for 16 days) [place] II: [] Deferred [place] III: [] Chronic next pain due to herniated disc [place] IV:[]] Very support and substance use issues Plan: [] She will continue the IOP the PHP program at [facility] as the support, structure, education, individual and group therapy will hopefully prevent worsening of the patient's symptoms that might require hospitalization. The patient felt safe during the interview and if at any time she is not feel safe she will tell us or go to the emergency room. The risk, options, possible complications and side effects of the medications were discussed with the patient and she understands and accepts these. She agrees to make the changes this week that we were planning to make last week. Prescription was sent in again for the doxepin and she will let us know tomorrow if this prescription is not available. So when the doxepin prescription is there she will decrease her doxepin to 20 mg p.o. at bedtime (to 10 mg capsules). After decreasing the doxepin the next day she will increase her Zoloft to 100 mg p.o. daily. She will continue the other medications unchanged.
--- NOTE | 2019-07-28 15:33 | BH.MDN_ITS ---
Multi-Disciplinary Note - Note 45-min Individual Time Started:: 12:20 Date: 07/28/19 Purpose of session/treatment goals addressed:: Purpose of session was to assess pt's current symptoms and stressors. Other topics included: communication and challenging negativity. Eye Contact:: Good Motor Activity:: Appropriate Appearance:: Casual Speech:: Appropriate Mood:: Anxious Affect:: Congruent Thoughts:: Linear, Logical, No evidence of hallucinations/delusions noted Staff Interventions:: Therapist used open ended questions to elicit pt's current symptoms and stressors. Therapist processed positives from pt's day yesterday. Therapist reviewed communication and conflict resolution strategies to help pt address problems with . Therapist provided support by validating pt's thoughts and emotions. Therapist assisted pt with challenging negative thoughts. Client Response:: Pt reported overall her dad yesterday went well after PHP until the evening when she tried talking with her about things that were bothering her. Pt stated after PHP she focuses on trying to spend time with her boys to rebuild relationships. Pt reported it has been positive to spend dinner time with her kids every evening now that she is sober. Pt stated at night her got mad at her for asking to use the credit card for audiobooks. Pt reported she tried to communicate with him things she has been learning about having open, honest communication. Pt stated everything she attempted to communicate about what she has learned or how his comments have hurt, he would tell her it was bullshit. Pt reported there was no resolution to the argument. Pt stated now that she is sober and feels more clairty in her life she wants to improve herself and her family. Pt reported she recognizes her family has to adjust to the new me. Risks/Concerns:: denies current suiicdal ideation, plan or intention to date. Progress Toward Goals/Plan:: Progress noted with pt continuing to maintain s obriety, openly communicating with , challenging distorted thoughts and setting boundaries with others. Pt continues to struggle with feelings of guilt and distorted thoughts. Pt to continue PHP to maintain sobriety, continue use of healthy coping skills, and prevent decompensation. Time Stopped:: 13:03
--- NOTE | 2019-07-29 09:07 | BH.SGPN.GN ---
Behaviors/Verbalizations/Mental Status: []Eye contact is good. Motor activity is appropriate. Appearance is casual, grooming appropriate. Speech is Appropriate rate and soft tone. Mood is euthymic. Affect is congruent. Thoughts are linear and logical. No evidence of psychosis. Client Response/Progress/Benefit: [] Client responded well to session as evidenced by her list intentionally to others and openly sharing thoughts and feelings. Client identified current emotion as content. 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 Client shared she is unsure if she is ready to take on a job since she has not worked in the field in 2 years. Client reported another mental positive was choosing to color her sons girlfriend's hair last night to see if doing hair increased her stress or anxiety. Client stated she actually felt really calm and enjoyed working on hair. Client stated her current stressor is having difficulty openly communicating with her about a situation that never was resolved from 2 days ago. Client reported she struggles with not knowing how to communicate because she worries it can come off as abrasive and cause conflict. Client recognizes that stuffing her emotions and thoughts are not healthy for her and nothing will change if she does not communicate how she feels. Client continues to struggle with openly communicating with her due to anxiety of what might happen. Client to continue PHP level care to increase use of healthy coping skills, maintain sobriety, and prevent decompensation. Narrative Note: []
--- NOTE | 2019-07-29 10:12 | BH.SGPN.GN ---
Behaviors/Verbalizations/Mental Status: []Client alert and oriented, casually dressed and groomed. Eye contact good. Motor activity appropriate. Speech within normal limits. Affect congruent, mood euthymic. Thoughts linear, logical, no signs of hallucinations or delusions. Client Response/Progress/Benefit: []Pt active participant as shown by contribution to discussion and positive insight. Pt agreed with peers that self-care is important because it helps prevent crisis later and improves mental health, but that it is hard to make time for self-care. Pt helped the group discuss benefits of self-care. Benefits included; improved relationships, maintaining stability, less stress, better perspective, and improved mood. Pt participated in the discussion of the common myths about self-care including self-care is selfish, always fun, too much effort and time, and we don?t deserve it. Client participated in the discussion on debunking of these myths. Group stated that everyone is worthy of self-care and by practicing self-care daily, it can prevent avoidable additional stressors. Client seemed to benefit from increased awareness of the importance of self-care and challenging common myths that prevent clients from practicing self-care. Client showing progress as shown by client?s report of improved mood stability and reduced agitation. Will continue IOP tx to promote gains and to further decrease negative thinking, and maintain sobriety. Narrative Note: []
--- NOTE | 2019-07-29 11:15 | BH.SGPN.GN ---
Behaviors/Verbalizations/Mental Status: []Client alert and oriented, neatly dressed and groomed. Eye contact good. Motor activity appropriate. Speech within normal limits. Affect congruent, mood euthymic. Thoughts linear, logical, no signs of hallucinations or delusions. Client Response/Progress/Benefit: []Client receptive of session, actively listening and contributing to discussion. Participated as the group further processed the activity and connected that maintaining self-care requires balancing life stressors and making oneself a priority. Client shared self-care is not always easy to incorporate, but ?if we don?t things fall apart.? Willing to complete worksheet activity and helped the group identify self-care activities. Client completed self-assessment activity on the different areas of self-care and was able to identify current practices she uses and identify areas she can improve upon. Client reported she can improve her social self-care area. Client shared ?I?m always canceling things.? Client set a goal to improve in the area of social self-care. Client?s goal is to ?actually keep plans? by scheduling to hang out with her cousin. Client shared she would benefit from this because it would help client feel connected and prevent isolation. Client appeared to benefit from increasing awareness of how she can improve her self-care balance. Progress noted as shown by client?s increased self-awareness of warning signs. Will continue tx to improve mood stability, increase emotional regulation skills, and improve daily functioning. Narrative Note: []
--- NOTE | 2019-07-29 16:45 | BH.MDN_ITS ---
Multi-Disciplinary Note - Note 45-min Individual Time Started:: 12:15 Date: 07/29/19 Purpose of session/treatment goals addressed:: Purpose of session was to assess pt's current symptoms and stressors. Other topics included: communication, radical honesty, and cognitive distortions. Eye Contact:: Good Motor Activity:: Appropriate Appearance:: Casual Speech:: Appropriate Mood:: Euthymic Affect:: Congruent Thoughts:: Linear, Logical, No evidence of hallucinations/delusions noted Staff Interventions:: Therapist used open ended questions to elicit pt's current symptoms and stressors. Therapist discussed strategies to help pt increase self- awareness of what she wants for herself and in her relationships. Therapist worked with pt to identify strategies to increse self-awareness. Therapist provided education about [id number] cognitive distortion. Therapist provided support by using active listening and validating emotions. Client Response:: Pt reported yesterday she was more quiet at home because was feeling exhausted after PHP. Pt stated she did a lot of reflection about what she is learning about herself. Pt reported everyday since being sober she is experiencing more clarity. Pt stated she is starting to figure out what she likes and doesn't like. Pt reported in regards to her relationship she realizes the need to improve communication and be willing to be honest with her about how she is feeling. Pt stated she didn't address wit her yesterday about what was bothering her because her was in a good mood. Pt recognizes holding in her thoughts and feelings is not healthy. Pt stated she is worried about being able to communicate correctly to her without upsetting him. With help pt recognized being honest with her about not really knowing how to communciate could be helpful so they can learn together. Pt connected with the concept of radical honesty and agreed it would be benefical for her relationship. Pt connected with cognitive distortions, able to recognize how her all or nothing thought patterns can set her up for failure. Pt stated her plan for today is to openly and honestly communicate with her and continue to focus on repairing relationships with her children. Risks/Concerns:: denies suicidal ideation, plan or intention to date. Progress Toward Goals/Plan:: Progress noted with maintaining sobriety, taking time to self-reflect, and continuing to work on improving relationships with her children. Pt continuing to struggle with guilt over past choices, difficulty communicating honestly, and anxiety. Pt to continue PHP to maintain sobriety, continue builiding healthy coping and prevent decompensation Time Stopped:: 13:00
--- NOTE | 2019-07-30 11:16 | BH.SGPN.GN ---
Addendum entered and electronically signed by Trista Kolb LSW 08/01/19 18:24: Client responded well to session, taking notes throughout and providing positive input. Client contributed as the group processed the activity. Client completed the fear of failure worksheet and reported that fear of failure is keeping her from making progress with her mental health. Client reported her barriers for overcoming her fear of failure include: asking for help, feeling overwhelmed, impatience, fear of the uncomfortable. Client did well to identify things to say or do to help overcome fear of failure which included: mindfulness skills, positive self-talk, and encouragement, asking for help from supports. Client appeared to benefit from gaining awareness of barriers and identifying strategies to reduce fear of failure. Client showing progress in ability to connect tx materials to own life and continues to improve use of positive self-talk. Client is recommended continued IOP tx to improve mood stability, increase communication with supports, reduce depression, and prevent decompensation. Original Note: Behaviors/Verbalizations/Mental Status: []Client alert and oriented, casually dressed and groomed. Eye contact good. Motor activity appropriate. Speech within normal limits. Affect congruent, mood dysthymic. Thoughts linear, logical, no signs of hallucinations or delusions. Client Response/Progress/Benefit: [] Narrative Note: []
--- NOTE | 2019-07-30 22:09 | BH.MDN_ITS ---
Multi-Disciplinary Note - Note 30-min Individual Time Started:: 12:15 Date: 07/30/19 Purpose of session/treatment goals addressed:: Purpose of session was to assess pt's current symptoms and stressors. Other topics included: identifying progress since starting PHP and discussing discharge from [facility]. Eye Contact:: Good Motor Activity:: Appropriate Appearance:: Casual Speech:: Appropriate Mood:: Euthymic Affect:: Full Thoughts:: Linear, Logical, No evidence of hallucinations/delusions noted Staff Interventions:: Therapist used open ended questions to elicit pt's current symptoms and stressors. Therapist elicited pt's thoughts about treatment progres s since starting PHP. Therapist discussed discharge plans for PHP and stepping down to [facility] level of care next week. Provided support by validating emotions. Client Response:: Pt reported yesterday she had a situation with her son's ex- girlfriend in which in the past pt stated she would have went off on her son's ex-girlfriend. Pt stated she didn't get involved in the situation. Pt reported her sons were surprised by pt's response becuase expected her to get verbally beligerent like she would have when drinking. Pt reported another positive was having an open and honest conversation with her that went very well. Pt reported her is open to couples therapy and wants to improve their relationship together. Pt stated since starting PHP she has progressed with increased clarity, self-awareness, challenging negative thoughts, regulating emotions more effectively, increased communication and maintaining sobriety for 18 days to date. Pt stated she is feeling ready to discharge from [facility] today. Pt stated she will step down to [facility] next week at three days a week with two individual sessions, instead of individual daily. Risks/Concerns:: denies suicidal ideation, plan or intention to date. Progress Toward Goals/Plan:: Progress noted with improved emotional regulation, increased healthy coping, improved communicating, increased self-awareness, and maintaining sobriety. Pt is to discharge from [facility] level of care today. Plan is to admit to [facility] level of care next week. Time Stopped:: 12:45
--- NOTE | 2019-07-30 22:32 | BH.DS ---
Discharge Summary - Demographics Date of Admission:: 07/21/19 Discharge Date: 07/30/19 Presenting Problems at Admission:: Patient is a 39-year-old female with a history of major depressive disorder and alcohol use disorder who was admitted to [facility] from July 12 to July 16, 2019. She was admitted due to an worsening of her depression and increase in alcohol use and suicidal ideation with a plan to overdose on pills. The patient says that this recent worsening of her mood was triggered by a conversation she had with her estranged father. This upset her and made her feel anxious and she self medicated with alcohol. She says she drank alcohol for 3 days straight. At admission pt was sober for 9 days since went in the hospital and this is the first time that she has ever tried to quit using alcohol. Discharge Diagnoses:: Depressive disorder, recurrent severe without psychosis; generalized anxiety disorder; alcohol use disorder (no alcohol use for 18 days) Reason for Discharge:: Pt has made signficiant treatment progress since starting [facility] and no longer meets medical necessity for this level of care. - Treatment Progress During Treatment & Response: Pt has demonstrated progress with reporting decreased anxiety and depression. Pt has maintained sobriety for 18 days, which is the longest she has been sober since 2018. Pt reports increased emotional regulation, increased self-awareness, improved communication, and increased ability to challenge negative thoughts. Pt is receptive to group and individual sessions [facility] pt openly sharing during sessions, applying skills outside of teratment environment and engaging in activities. Issues Still to be Addressed:: Pt could benefit from continuing to build healthy coping skills to maintain sobriety. Pt could also benefit from continuing to increase self-awareness of triggers and warning signs of personal crisis. Benefit from improving communicating, repairing relationships and addressing underlying issues that have contributed to alcohol use. Discharge Recommendations/Instructions:: Pt recommended to start IOP level of care next week. Discharge Handout: Complete Discharge Handout with client on aftercare options and continuity of care.
== END 2019-07-30 14:00 | disposition home or self-care (01) ==
LOC: BHPHP 09:00
PROVIDERS: Referring Provider Psychiatry & Neurology Psychiatry; Visit Provider Psychiatry & Neurology Psychiatry
DX: F33.9 Major depressive disorder, recurrent, unspecified (principal); F41.1 Generalized anxiety disorder; Z72.89 Other problems related to lifestyle
CPT/HCPCS: H0035; 90832; 90834; 90837; G0410

== ENCOUNTER 2019-08-03 09:00 | Outpatient (RCR) | payer OTHER, SELFPAY ==
--- NOTE | 2019-07-30 09:00 | BH.SGPN.GN ---
Behaviors/Verbalizations/Mental Status: []Client alert and oriented, neatly dressed and groomed. Eye contact good. Motor activity appropriate. Speech within normal limits. Affect congruent, mood calm. Thoughts linear, logical, no signs of hallucinations or delusions. Reviewed client?s symptom tracker, no risk for suicidal ideation or intent Client Response/Progress/Benefit: []Client responded well to session, attentive and providing supportive statements to peers. Client reports feeling content today. Client reported she is 18 days sober today and she is proud of herself. Client shared now that she is sober, she is learning how to just be present and connect with her family better. Client shared it has not been easy for her to be present because she is a fixer by nature and often wants to solve problems for others. Client reported she was able to set a boundary with her son rather than fix the problem for him. Client's second win today was that she talked with her about stressors she has been experiencing rather than avoiding and stuffing her emotions. Client stated the conversation went well and he was receptive. Client's stressor today is trying to rebuild the relationships that were impacting by client's addiction. Client recognizes that she is taking positive steps towards rebuilding her relationship with her children and . Appeared to benefit from reflecting on her sobriety. Will continue IOP tx to promote gains, further decrease intensity of symptoms, and maintain sobriety. Narrative Note: []
--- NOTE | 2019-08-03 09:08 | BH.SGPN.GN ---
Behaviors/Verbalizations/Mental Status: [] Pt eye contact good, casually dressed, motor activity appropriate, speech normal rate and tone, mood euthymic, congruent affect, thoughts linear and intact, no evidence of delusions or hallucinations. Reviewed client?s symptom tracker, no signs of suicidal ideation, plan, or intent as of today. Client Response/Progress/Benefit: []Patient responded well to session as evidenced by him listening attentively to peers and sharing thoughts and feelings openly with group. Patient defined mental positive was going on a hike with her over the weekend which ended up in them getting lost. Patient reported in the past she would have became frustrated and angry at her but was able to use self talk and make light of the situation. Patient stated they end up laughing about being lost and she recognized it was not his fault and it would not have been worth it to get an argument over. Patient stated additional positive is being 22 days sober today which has helped her be more present for her children. Patient stated she was able to experience alvin in celebrate with her middle oldest child that he got an award for basketball. Patient reported her stressor is just continuing to focus on rebuilding relationships and being patient with others. Patient stated she recognizes she needs to be patient with how long it takes for others to trust her again. Patient identified her current emotion to be happy. Patient demonstrating progress with utilizing healthy coping strategies and challenging perspective outside of treatment environment. Patient to continue IOP level of care to continue use of healthy coping strategies, continue to challenge negative thought patterns, and prevent decompensation. Narrative Note: []
--- NOTE | 2019-08-03 10:15 | BH.SGPN.GN ---
Behaviors/Verbalizations/Mental Status: []Client alert and oriented, casually dressed and appropriately groomed. Eye contact good. Motor activity appropriate. Speech within normal limits. Affect congruent, mood euthymic. Thoughts linear, logical, no signs of hallucinations or delusions. Client Response/Progress/Benefit: []Client was an active participant in group activity and provided input to discussion. Client connected with the topic of obstacles and solutions and worked with group to identify common internal and external barriers that keep people stuck. Group identified; self-doubt, negative thinking, unrealistic expectations, helplessness, and what if thinking as potential internal barriers that could prevent progress towards a better quality of life. Client shared current reality as feeling impatient, anxious, having self-doubt, recovering from alcoholism, and difficulty communicating needs to supports. Client's realistic, desired reality to be having a better understanding of anxiety, being more patient, not being a fixer, and being okay with not knowing all the information. Client stated she also wants to recovered not just recovering from addiction, but recognizes that this barrier will always be there. Client identified barriers keeping client from desired reality to include; impatience, difficulty communicating, and anxiety. Benefited from group as client was able to identify current mental health state and barriers that are impacting progress. Will continue IOP tx to promote sobriety, increase healthy coping skills, and improve functioning. Narrative Note: []
--- NOTE | 2019-08-03 11:20 | BH.SGPN.GN ---
Behaviors/Verbalizations/Mental Status: []Client alert and oriented, casually dressed and groomed. Eye contact good. Motor activity appropriate. Speech within normal limits. Affect congruent, mood euthymic. Thoughts linear, logical, no signs of hallucinations or delusions. Client Response/Progress/Benefit: []Client was an active participant in group discussion and activity. Engaged during activity and provided ideas on how to cope with internal barriers impacting ability to reach desired reality. Willing to provide supportive feedback to peers. Client along with peers identified various obstacles during the activity and developed strategies to overcome those obstacles to wellness and desired reality. Barriers identified by the group included: impatience, difficulties communicating with supports, overwhelming anxiety, and unrealistic expectations. Strategies identified for overcoming these barriers included: deep breathing, taking small steps, thought challenging, and mindfulness. Client selected wanting to work on improving consistency of communication with supports as a means of overcoming her own internal barriers. Shared this is a barrier she often struggles with. Benefited from group by identifying obstacles and solutions to desired reality. Will continue IOP tx to maintain sobriety, reduce mental health sx, and increase consistent coping skill application. Narrative Note: []
--- NOTE | 2019-08-03 14:24 | BH.MTP ---
Master Treatment Plan - Patient Information Program Physician:: Dr. Pascal Primary Therapist:: Rylee Alvarez [facility] - Psychiatric Diagnoses Psychiatric Diagnoses:: Major depressive disorder recurrent severe without psychosis; generalized anxiety disorder; alcohol use disorder, severe (no alcohol use for 22 days) Diagnosis Code(s):: F33.2 - Estimated LOS Estimated LOS (in weeks):: 6 Problem/Goal #1 - Problem/Goal #1 Stated Goal:: Stabilize anxiety level while increasing ability to function and decreasing ruminative thoughts on a daily basis through Intensive Hospitalization Program. Description of Barriers: Pt's history of alcohol addiction with only 22 days of sobriety. Pt's distorted thoughts, negative thoughts, lack of healthy coping skills, and interpersonal conflicts. Functional Impact: Pt has been using alcohol as a coping skill to manage her anxious and depressive symptoms. Pt's unresolved mental health problems and alcohol addiction has impacted pt's ability to maintain a job, negatively impacting familial relationships and has kept her from making social connections. Goal Relevant Strengths/Supports: Pt is intelligent, resilient, and expresses motivation to get better. - Objectives Objective #1 Stated Objective: Client will learn and utilize 2-3 healthy coping strategies to manage anxious symptoms. Interventions: Therapist will assist client in learning internal coping strategies to manage anxious symptoms, along with helping client identify triggers. Discharge Criteria: Therapist will assist client in learning internal coping strategies to manage anxious symptoms, along with helping client identify triggers. Target Date: 09/14/19 Review Date: 08/31/19 Objective #2 Stated Objective: Pt will decrease anxious symptoms AEB pt?s score on the DSM 5 cross-cutting measure improve pt?s daily functioning. Interventions: Through groups and individual therapy, pt will be provided education about anxiety?s impact on body and common physiological reaction to anxiety. Therapist will teach pt appropriate breathing techniques and build healthy coping skills to manage daily anxieties. Discharge Criteria: Pt will have met this goal when pt?s score on the DSM 5 cross cutting measure for anxiety has been decreased and per pt?s report daily functioning has improved. Target Date: 09/14/19 Review Date: 08/31/19 Problem/Goal #2 - Problem/Goal #2 Stated Goal:: Client will decrease depression, feeling of worthlessness, and hopelessness through Intensive Outpatient Program. Description of Barriers: Pt's history of alcohol addiction with only 22 days of sobriety. Pt's distorted thoughts, negative thoughts, lack of healthy coping skills, and interpersonal conflicts. Functional Impact: Pt has been using alcohol as a coping skill to manage her anxious and depressive symptoms. Pt's unresolved mental health problems and alcohol addiction has impacted pt's ability to maintain a job, negatively impacting familial relationships and has kept her from making social connections. Goal Relevant Strengths/Supports: Pt is intelligent, resilient, and expresses motivation to get better. - Objectives Objective #1 Stated Objective: Client will identify and replace 2-3 negative thinking patterns that reinforce depressive symptoms. Interventions: Through groups and individual therapy, pt will be provided with education on cognitive distortions, mistaken beliefs, and identifying and combating negative self-talk. Therapist will help pt explore connection between thoughts, feelings, and actions. Discharge Criteria: Pt will be able to identify 2-3 negative thinking patterns and be able to effectively stop, challenge, or cope with those negative thoughts. Target Date: 09/14/19 Review Date: 08/31/19 Objective #2 Stated Objective: Pt will decrease depressive symptoms AEB pt?s score on the DSM 5 cross-cutting measure and improve pt?s daily functioning. Interventions: Through groups and individual therapy, pt will be provided with education on cognitive distortions, mistaken beliefs, and identifying and combating negative self-talk. Therapist will assist pt with getting back into the activities she once enjoyed as well as increasing healthy coping strategies. Discharge Criteria: Pt will have met this goal when pt?s score on the DSM 5 cross cutting measure for depression has been decreased and per pt?s report daily functioning has improved. Target Date: 09/14/19 Review Date: 08/31/19
--- NOTE | 2019-08-03 14:46 | BH.MDN ---
Multi-Disciplinary Note - Note 45-min Individual Time Started:: 12:20 Date: 08/03/19 Purpose of session/treatment goals addressed:: Purpose of session was to assess pt's current symptoms and stressors. Other topics included: identifying positives from weekend, education about rumination, and discussing cognitive distortions. Affect:: Full Thoughts:: Linear, Logical, No evidence of hallucinations/delusions noted Staff Interventions:: Therapist used open ended questions to elicit pt's current symptoms and stressors. Therapist elicted positives from the weekend. Therapist provided psychoeducation about difference between rumination and reflection. Helped pt see the negative impact of rumination. Discussed strategies to help manage ruminations. Provided pt with handout about cognitie distortions, asking pt to review distortions for homework and identify which distortions she connects with the most. Client Response:: Pt reported she went hiking with her on Friday and was able to manage her emotions better when they got lost. Pt stated she typically would go off, but was able to use self-talk to remind her that he didn't purposefully get them lost. Pt reported she was pleased with herself for being able to stay calmer. Pt stated Friday was a bad day. Pt reported she was telling her she was going to go to the library to get audiobooks instead of spending money on an audible account. Pt stated she thought she was doing good by trying to reduce her husbands financial stress, however pt stated her told her that they would have to spend money anyways because she wouldn't return the books on time. Pt stated she told him she did not like that he was being negative about everything and that she thought she was doing a good thing by trying to think outside the box to decrease financial stress. Pt stated she communicated calmly to her that her sole focus is maintaining sobriety right now and can't handle his financial stress. Pt reported she gave her space to process what she communicated to him. Pt stated her eventually calmed down and wanted to go to the store with her. Pt reported she learned it's important to communciate her feelings in a calmer way and to give her space when he asks. Pt stated the conflict wasn't resolved, but knows in couples therapy that is something they can work on. Pt reported she did ruminate for majority of the day Friday about what she could have done differently. Connected with the difference between rumination and reflection. Reported she would utilize the strategies to decrease rumination. Agreeable to review cognitive distortion handout. Risks/Concerns:: denies current suicidal ideation, plan or intention to date. Progress Toward Goals/Plan:: Progress noted with pt being able to manage emotions more effectively this weekend, communicated honestly with her her thoughts and feelings, and continuing to work on rebuilidng relationships. Pt is to continue IOP to maintain sobriety, continue use of healthy coping and prevent decompensation. Time Stopped:: 13:02
--- NOTE | 2019-08-03 15:23 | BH.PSA_ITS ---
Source of Information - Presenting Problems/Circumstances Problems, Referral Source, Mental Status, Client: Pt completed PHP program from 07/21/19-07/30/19 and is stepping down to [facility] for lower level of care. Pt is 22 days sober from alcohol. Pt continues to endorse anxious and depressed symptoms with low energy, ruminations, racing thoughts, anhedonia, and low motivation. Denies current suicidal ideation, plan or intention to date. Prior to PHP pt had suicidal ideation with idea of overdosing. Pt states her mood has improved since completing PHP. Refer to previous psychosocial dated 08/22/19 for additional history. Diagnoses - Diagnoses Diagnosis #1:: Depressive disorder, recurrent severe without psychosis Diagnosis #2:: Generalized Anxiety Disorder Diagnosis #3:: Alcohol Abuse (20 days sober)
--- NOTE | 2019-08-04 09:04 | BH.SGPN.GN ---
Behaviors/Verbalizations/Mental Status: []Pt alert and orient x3. Eye contact good. Motor activity is appropriate. Appearance is casual. Speech is Appropriate. Mood is dysthymic, anxious, agitated. Affect is congruent. Thoughts are linear and logical. No evidence of psychosis. Reviewed daily check in sheet and no reports of suicidal ideations or intent. Client Response/Progress/Benefit: []Pt responded well to session, listening throughout discussion and providing supportive feedback to the group. Reports emotion for the day as ?content? and indicated that this is due to feeling increased mood stability. Pt did well to identify current mental health win as successfully remaining calm while working through a stressful morning without power. Additional win identified as continuing to challenge negative and anxious thoughts associated with her son choosing where he would like to attend college next year. Stressor noted as struggling at times to challenge anxiety associated with her son?s decisions about his future. Benefited from support of the group and identifying personal successes. Progress noted in pt ability to successfully manage stressors without becoming agitated outside group environment. Recommended continued IOP tx to promote healthy change behaviors, increase distress tolerance and emotion regulation, and reduce overall mental health sx severity. Narrative Note: []
--- NOTE | 2019-08-04 10:18 | BH.SGPN.GN ---
Behaviors/Verbalizations/Mental Status: []Client alert and oriented, casually dressed and groomed. Eye contact good. Motor activity appropriate. Speech within normal limits. Affect congruent, mood euthymic. Thoughts linear, logical, no signs of hallucinations or delusions. Client Response/Progress/Benefit: []Client was an active participant AEB engagement in group activity and providing good input during discussion. Client worked with group to define resilience, sharing resilience to her means ?adapting and overcoming tough situations.? Client shared being resilient can better help people overcome hardships and reduce conflict with others. Client able to make connections between activity and barriers/supports to the development of a resilient lifestyle. Client agreed with peers that one can learn to become more resilient throughout life and used herself as an example of one?s ability to increase resilience. Client able to work with group to discuss benefits of resilience on mental health which included; better management of mental health symptoms, increased healthy coping skills, increased confidence, less fear of stressors, and personal growth. Progress noted as shown by client?s ongoing sobriety and report of increased use of coping skills outside of IOP. Recommended continued IOP tx to improve emotional regulation skills, better communicate with supports, and reduce anxiety. Narrative Note: []
--- NOTE | 2019-08-04 12:12 | BH.DR.ITP ---
Initial Treatment Plan - Patient Information Visit Information: ADMISSION DATE: EXPECTED LOS: 4-6 weeks - Problems/Symptoms Problem #1:: Depression. Symptom:: Sadness, anhedonia, rumination Problem #2:: Anxiety Symptom:: Worry, Biological disruption of sleep
--- NOTE | 2019-08-06 09:05 | BH.SGPN.GN ---
Behaviors/Verbalizations/Mental Status: [] Eye contact is good. Motor activity is appropriate. Appearance is casual. Speech is Appropriate. Mood is anxious. Affect is congruent. Thoughts are linear and logical. No evidence of psychosis. Reviewed daily check in sheet and no reports of suicidal ideations or intent. Client Response/Progress/Benefit: [] Pt was an active participant in group discussion. Emotion for today is hopeful. Notes that she is 25 days sober. Shared with the group a mental health win from yesterday. States that she is trying to be more social and less isolative and decided to take her friends up on an invite for a girls night out. This was the first event that she attended where other's would be drinking alcohol. Utilized skills and self talk strategies. Also brought her own non-alcoholic drinks. Admits being anxious as she did not have sober support with her however was proud of herself. Believes that this increases the trust among her family. Discussed some stressors related to her children, her mood, and recovery in general. Feels that she is making progress in IOP. Benefited from group feedback, encouragement, and support. Progress noted. Will continue in IOP to prevent decompensation, increase healthy coping skills, and transition back after recent hospitalization. Narrative Note: []
--- NOTE | 2019-08-06 10:15 | BH.SGPN.GN ---
Behaviors/Verbalizations/Mental Status: [] Eye contact is good. Motor activity is appropriate. Appearance is casual. Speech is Appropriate. Mood is anxious. Affect is congruent. Thoughts are linear and logical. No evidence of psychosis. Client Response/Progress/Benefit: [] Pt was an active participant in group discussion and activity. Attentive during psychoeducation. Provided feedback on the quote of the day. Worked with peers on defining goals (purposes), identifying benefits of goal-setting, and providing feedback during psycho-education on SMART goals. Engaged in activity. Benefited from group by learning the mental health benefits of setting goals that are specific, measurable, attainable, relevant, and time-specific. Will continue in IOP to prevent decompensation and show consistent use of healthy coping skills. Narrative Note: []
--- NOTE | 2019-08-06 11:15 | BH.SGPN.GN ---
Behaviors/Verbalizations/Mental Status: [] Eye contact is good. Motor activity is appropriate. Appearance is neat. Speech is Appropriate. Mood is euthymic. Affect is full. Thoughts are linear and logical. No evidence of psychosis. Client Response/Progress/Benefit: [] Pt was an active participant in group discussion and activity. Provided appropriate feedback to peers. Pt choose the goal; Stay sober this weekend. When asked why this goal was important and beneficial to her mental health she stated; sobriety is important for my mental health and physical health, also builds trust with family. Identified the following barriers to completing this goal which included; her environment, accessibility, herself, her thinking, her anxiety, and being uncomfortable. Group provided feedback on whether this goal met the standards of a SMART goal and a discussion was had on strategies to help support her goals and overcome the barriers. Benefited from this group by practicing how to develop a short-term SMART goals related to mental health. Narrative Note: []
--- NOTE | 2019-08-09 09:05 | BH.SGPN.GN ---
Behaviors/Verbalizations/Mental Status: []Pt alert and orient x3. Eye contact good. Motor activity is appropriate. Appearance is casual. Speech is Appropriate. Mood is euthymic. Affect is congruent. Thoughts are linear and logical. No evidence of psychosis. Reviewed daily check in sheet and no reports of suicidal ideations or intent. Client Response/Progress/Benefit: []Pt responded well to session AEB pt listening attentively to others and willingness to share with the group. Pt reported current emotion as ?hopeful? and indicated this is due to feeling she is consistently making progress. Pt did well to identify mental health wins. Indicating a mental health positive was scheduling time for her to spend with her . Shared this went better than expected. Pt identified additional positive as being able to spend time out of the house rather than isolating. Noted going to her cousins [employer]ze[employer] tournament. Shared feeling this was a positive experience. Pt progress in increased engagement and application of coping skills and materials learned. Pt appearing to benefit from ongoing support provided by group. Pt recommended to continue IOP to increase healthy coping, maintain gains made, and prevent decompensation. Narrative Note: []
--- NOTE | 2019-08-09 11:20 | BH.SGPN.GN ---
Behaviors/Verbalizations/Mental Status: []Client alert and oriented, neatly dressed and groomed. Eye contact good. Motor activity appropriate. Speech within normal limits. Affect congruent, mood euthymic. Thoughts linear, logical, no signs of hallucinations or delusions. Client Response/Progress/Benefit: []Client responded well to session, attentive and engaged throughout session. Group discussed the mental health benefits of recognizing strengths which included; improved self-esteem, better coping skills, and improved mood. Client stated recognizing strengths is important and takes effort and time. Group shared that if one does not recognize their strengths, it could lead to increased mental health symptoms, isolation, and giving up on goals. Client able to identify personal strengths she possesses which included; empathy, gratitude, social awareness, and being open-minded. Client stated her open-mindedness and gratitude has really helped client learn and apply skills during IOP. Group discussed strategies to build and improve strengths which included; practicing self-compassion, affirmations, applying strengths or ?use them,? self-care, and keeping track of wins. Appeared to benefit from recognizing personal strengths and identifying strategies to improve strengths. Progress noted as shown by client's ongoing sobriety and report of improve communication with her . Will continue IOP tx to promote mood stability and further improve daily functioning. Narrative Note: []
--- NOTE | 2019-08-09 13:50 | BH.MDN ---
Multi-Disciplinary Note - Note 45-min Individual Time Started:: 12:20 Date: 08/09/19 Purpose of session/treatment goals addressed:: Purpose of session was to assess pt's current symptoms and stressors. Other topics included: identifying positives, communication, problem solving and aftercare. Eye Contact:: Good Motor Activity:: Appropriate Appearance:: Casual Speech:: Appropriate Mood:: Euthymic, Anxious Affect:: Full Thoughts:: Linear, Logical, No evidence of hallucinations/delusions noted Staff Interventions:: Therapist used open ended questions to elicit pt's current symptoms and stressors. Therapist processed pt's weekend, elicting positives and treatment progress. Therapist assisted pt with problem solving current stressors of mom still living with her and her middle oldest son. Therapist worked with pt to discuss various communication strategies when addressing current stressors. Therapist started discussion about establishing pt with outpatient providers for when discharges from IOP. Client Response:: Pt reported she has been working on her communciation, especially with her . Pt stated she realizes when she was drinking often her communication was aggressive which often didn't result in anything positive or productive. Pt stated she has been doing better with being more open, honest, and calm when communicating with others. Pt reported a couple times over the weekend her was rude to her and she did well with not reacting to his comments. Pt stated by not reacting to her husbands comments it didn't escalate the situation. Pt reported she has gained awareness that not using aggressive communication anymore is improving her relationships. Pt stated her on Friday showed improvement with letting her in by having a more serious conversation about goals and listening to what she has been learning in therapy. Pt identified current stressors to be her mom still living with her and her son's substance use. Pt receptive to problem solving ways to manage current stressors. Pt agreeable to call outpatient counseling agency to establish aftercare counseling. Risks/Concerns:: denies current suicidal ideation, plan or intention to date. Progress Toward Goals/Plan:: Progress noted with using emotional regulation skills, challenging negative thoughts, improved communication skills, and maintaining sobriety. Pt to continue IOP to maintain sobriety, continuing building healthy coping skills and prevent decompensation. Time Stopped:: 13:00
--- NOTE | 2019-08-12 09:08 | BH.SGPN.GN ---
Behaviors/Verbalizations/Mental Status: []Pt alert and orient x3. Eye contact good. Motor activity is appropriate. Appearance is casual. Speech WNL. Mood is euthymic. Affect is congruent. Thoughts are linear and logical. No evidence of psychosis. Reviewed daily check in sheet and no reports of suicidal ideations or intent. Client Response/Progress/Benefit: []Pt responded well to session AEB pt listening attentively to others and willing to process with group. Pt reported current emotion as ?hopeful and content?, indicated this is due to continuing o feel she is making progress in managing mental health sx and reaching tx goals. Pt did well to identify mental health wins. Current wins include using internal boundaries to encourage herself to focus on one thing at a time in the house while organizing. Additional win recognized as being 31 days sober today and feeling more like herself as a result. Reported receiving encouragement from her which was helpful as well. Stressor identified as continuing to struggle with wanting to have her mother return to her own home but feeling unsure as to whether or not she is truly ready for this yet. Progress in pt ongoing sobriety and application of skills learned. Pt recommended to continue IOP to increase consistency of healthy coping, improve stress management, and prevent decompensation. Narrative Note: []
--- NOTE | 2019-08-12 10:16 | BH.SGPN.GN ---
Behaviors/Verbalizations/Mental Status: []Client alert and oriented, neatly dressed and appropriately groomed. Eye contact good. Motor activity appropriate. Speech WNL. Affect full, mood euthymic. Thoughts linear, logical, no signs of hallucinations or delusions. Client Response/Progress/Benefit: []Client active participant as evidenced by providing input throughout discussion and asking questions during psychoeducation. Client agreed that she experiences automatic thoughts and often these thoughts can be negative. Client connected with the discussion about how distorted thought patterns can reinforce mental health symptoms. Client reported back when she was still drinking she would get mad at her family because I assumed they were talking about me. Client noted that she connects with fortune telling, black and white thinking, and mind-reading. Client reported she recognizes cognitive distortions can lead to increased depression, increase anxiety, and impact relationships. Client shared I can challenge these for other people, but I can't for myself. Appeared to benefit from increasing awareness of cognitive distortions and how they can impact emotions and behaviors. Client to continue IOP tx to promote use of healthy coping skills, maintain sobriety, and reduce anxiety. Narrative Note: []
--- NOTE | 2019-08-12 11:20 | BH.SGPN.GN ---
Behaviors/Verbalizations/Mental Status: []Pt eye contact good, casually dressed, motor activity appropriate, speech normal rate and tone, mood euthymic, congruent affect, thoughts linear and intact, no evidence of delusions or hallucinations. Client Response/Progress/Benefit: []Client?engaged during session AEB client providing contributions throughout group session. Client acknowledged the importance of needing to have awareness and put forth the effort to challenge, reframe, and replace distorted thought patterns. Client worked cooperatively with group to challenge distorted thoughts and was attentive in learning strategies to combat distortions. Client reported a distorted thought she has my mom must be telling others about my problems. Client reported this thought makes her feel anxious, embarrassed and discouraged. Client stated the thought is jumping to conclusions because has no evidence to support that thought. Client reframed the thought to maybe my mom needs to talk to someone about what I'm going through as a way to cope. Client responded well to feedback that one way to challenge that thought is to directly talk to her mom. Client seemed to benefit from increased awareness of cognitive distortions and practicing reframing distorted thoughts. Client to continue IOP level of care to challenge negative thoughts, continue use of healthy coping and prevent decompensation. Narrative Note: []
--- NOTE | 2019-08-13 09:00 | BH.SGPN.GN ---
Behaviors/Verbalizations/Mental Status: [] Eye contact is good. Motor activity is appropriate. Appearance is casual. Speech is Appropriate. Mood is anxious. Affect is congruent. Thoughts are linear and logical. No evidence of psychosis. Reviewed daily check in sheet and no reports of suicidal ideations or intent Client Response/Progress/Benefit: [] Pt participated at times during the group discussion. Emotion for today is frustrated. Shared with the group some frustrations related to her mother continuing to stay with her after her recent hospitalization. Has been wanting to discuss with mother her plans for the future in regards to returning to her home in [place], however has been hesitant. Started a conversation yesterday however it started to go bad. Pt was able to walk away and not engage or get frustrated (which she reports she would have done in the past). Poor sleep last night which is impacting mood this AM. Progress noted per pt report. Benefited from group support, encouragement, and feedback. Will continue in IOP to prevent decompensation, provided support, and increase health coping skills. Narrative Note: []
--- NOTE | 2019-08-13 20:44 | BH.MDN ---
Multi-Disciplinary Note - Note 30-min Individual Date: 08/13/19
== END 2019-08-14 23:59 ==
LOC: BHIOP 09:00
PROVIDERS: Referring Provider Psychiatry & Neurology Psychiatry; Visit Provider Psychiatry & Neurology Psychiatry
DX: F33.2 Major depressive disorder, recurrent severe without psychotic features (principal)
CPT/HCPCS: H0035; 90832; 90834; 90853

== ENCOUNTER 2019-08-16 09:00 | Outpatient (RCR) | payer OTHER, SELFPAY ==
--- NOTE | 2019-08-16 09:00 | BH.SGPN.GN ---
Behaviors/Verbalizations/Mental Status: [] Eye contact is good. Motor activity is appropriate. Appearance is casual. Speech is Appropriate. Mood is depressed. Affect is flat. Thoughts are linear and logical. No evidence of psychosis. Reviewed daily check in sheet and no reports of suicidal ideations or intent. Client Response/Progress/Benefit: [] Pt was an active participant in group discussion. Daily symptoms tracker notes 3/5 for anxiety and agitation and a 1/5 for panic. Shared with the group some interactions this weekend which resulted in depression and anxiety. She tired not to ruminate and allow these interactions to impact her however it was challenging. Able to see progress noting that in the past she would have either drank, avoided, or got significantly angry at the person. Able to sit with the emotions and process them. 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 Also spent time with her this past weekend noting improved relationship and communication. Narrative Note: []
--- NOTE | 2019-08-16 10:20 | BH.SGPN.GN ---
Behaviors/Verbalizations/Mental Status: []Eye contact is good. Motor activity is appropriate. Appearance is casual, neat. Speech is Appropriate. Mood is euthymic. Affect is congruent. Thoughts are linear and logical. No evidence of psychosis. Client Response/Progress/Benefit: []Participated throughout group discussion, providing some input and listening actively. Engaged during psychoeducation portion reviewing fixed mindset. Reported relating to examples of fixed mindset thoughts and provided personal example. Pt worked with group to identify how a fixed mindset can impact our mental health which included: decreased hope, giving up when faced with a setback, not asking for help, low self-esteem, and isolation/avoidance. Pt identified one fixed thought she has as ?I?ve already learned everything I need to, I don?t need to go for more training. Recognized that this fixed thought keeps her from making progress towards goals. Benefited from group by increasing awareness of how one's mindset impacts mental health. Pt to continue IOP level of care to increase utilization of healthy coping skills, challenge distorted thoughts, and prevent decompensation. Narrative Note: []
--- NOTE | 2019-08-16 11:25 | BH.SGPN.GN ---
Behaviors/Verbalizations/Mental Status: []Pt eye contact good, casually dressed, motor activity appropriate, speech normal rate and tone, mood euthymic, congruent affect, thoughts linear and intact, no evidence of delusions or hallucinations. Client Response/Progress/Benefit: []Client engaged during discussion and listened attentively to peers. Client did well to apply cognitive restructuring to reframe previously identified fixed thoughts, transforming her fixed thought from previous group to a growth thought of ?It's okay to set a boundary with others about what I don't like.? Client shared her fixed thoughts have held her back from trying new things. Client participated as the group brainstormed strategies to promote growth-mindset thinking. Benefitted from discussing benefits of growth mindset and brainstorming strategies for prompting growth-mindset. Will continue IOP tx to continue use of healthy coping, maintain gains and prevent decompensation. Narrative Note: []
--- NOTE | 2019-08-16 14:59 | BH.MDN_ITS ---
Multi-Disciplinary Note - Note 45-min Individual Time Started:: 12:20 Date: 08/16/19 Purpose of session/treatment goals addressed:: Purpose of session was to assess pt's current symptoms and stressors. Other topics included; reviewing homework from last session, discussing aftercare, and problem solving about current stressor. Eye Contact:: Good Motor Activity:: Appropriate Appearance:: Casual Speech:: Appropriate Mood:: Euthymic Affect:: Congruent Thoughts:: Linear, Logical, No evidence of hallucinations/delusions noted Staff Interventions:: Therapist used open ended questions to elicit pt's current symptoms and stressors. Therapist reviewed homework from last individual session. Discussed importance of being able to sit with uncomfortable emotions instead of avoid. Therapist assisted pt with problem solving for current stressor of what to do with pt's mom in regards to living situation. Therapist worked with pt to identify aftercare plans for post-discharge from [facility]. Discussed setting up family therapy session to provide psychoeducation and improve family communication. Client Response:: Pt reported after she left early from IOP she did go home and choose to hang out with her mom instead of go to bed. Pt stated she reflected on Friday evening that next time she is feeling sad and has the desire to leave IOP early she will make herself stick it out. Pt stated she now recognizes the importance of being able to be sad and not run away when not feeling happy. Pt reported she is proud of herself for not going back to bed when she left early from IOP on Friday. Pt stated she decided to do something fun with her mom to try and improve their relationship. Pt reported one of her stressors is having her mom living with her, but not wanting to tell her mom to go back to her home in [place]. Pt stated she had a conversation with her about her concerns. Pt shared her was very receptive to the conversation and was able to come up with several ideas to help pt's mom stay in [place], but not live with them. Pt stated she knows having her mom live with them would be detrimental to her own mental health. Pt reported she is trying to work on not taking on too much. Pt shared after Friday her weekend went really well with spending time with family and continuing to work on improving communication. Pt stated for aftercare she will contact [facility] to establish with individual counseling and will call [facility] to establish for psychiatry. Risks/Concerns:: denies current suicidal ideation, plan or intention to date. Denies alcohol urges. future focused. family serves as protective factor. Progress Toward Goals/Plan:: Progress noted with pt being 35 days sober, use of thought challenge strategies, continuing to work on commuicating, and utilizing healthy skills to manage emotions. Pt recently had first time since being sober in which she experienced negative, overwhelming emotions. Pt had worry about using alcohol, but able to use opposite action and other skills to manage emotions. Pt to continue IOP to maintain sobriety, continue use of healthy coping and prevent decompensation. Time Stopped:: 13:00
--- NOTE | 2019-08-18 09:05 | BH.SGPN.GN ---
Behaviors/Verbalizations/Mental Status: [] Eye contact is good. Motor activity is appropriate. Appearance is neat. Speech is appropriate. Mood is euthymic. Affect is full. Thoughts are linear and logical. Tearful. No evidence of psychosis. Reviewed daily check in sheet and no reports of suicidal ideations or intent. Client Response/Progress/Benefit: [] Pt was an active participant in group discussion. Emotion for today is happy. Notes some mental health wins which include being more empathic to others and improved communication. Shared some stressors regarding conversations with her support, however believes that she continues to improve in her ability to utilize healthy coping skills for emotions like frustration, anxiety, depression, and regret. Daily symptom tracker notes 2/5 for anxiety and agitation. Notes 1/5 for panic. Progress noted per pt report. Benefited from group support, encouragement, and feedback. Will continue in IOP to prevent decompensation, maintain gains, and utilize consistent health coping skills. Narrative Note: []
--- NOTE | 2019-08-18 10:15 | BH.SGPN.GN ---
Behaviors/Verbalizations/Mental Status: []Pt eye contact good, casually dressed, motor activity appropriate, speech normal rate and tone, mood euthymic, congruent affect, thoughts linear and intact, no evidence of delusions or hallucinations. Client Response/Progress/Benefit: []Client responded well to session, engaged in activity and actively listening as well as providing input to discussion. Engaged in activity about facts and statistics of mental illness. Group connected with the mental health statistics, recognizing the prevalence of mental health. Group brainstormed strategies to combat social and perceived stigma which included: educating others, no longer using negative labels about mental illness, being open about mental health, and not using deflection like humor or joking to minimize symptoms. Client reported she will continue to have an open dialogue with family and supports about her struggles with mental health in an effort to reduce social and perceived mental health stigma. Appeared to benefit from increasing awareness of strategies to combat stigma. Will continue IOP tx to maintain sobriety, continue use of healthy coping, and prevent decompensation. Narrative Note: []
--- NOTE | 2019-08-18 11:56 | PCM.BH.PN ---
Progress Note Progress Note: History of Present Illness/Interim History: [] The patient is a 39-year-old female with a history of depression and alcohol use disorder who is seen in follow-up at the [facility] IOP program. The patient states that since her Zoloft was increased 2 weeks ago she has been feeling much less numb. She describes her mood as less depressed now and overall has had an okay mood on most days. She is still a worrier and struggles with this. She said her sleep is better with the doxepin and she is getting about 6 hours of sleep at least per night. She states that it is much easier to get back to sleep when she wakes up during the night. She says she is gaining some weight now but feels she was underweight before. We discussed that the weight gain could be due to the Remeron and also to do to quitting smoking and alcohol at the same time. She denies any cravings for alcohol and remained sober. The patient feels she is benefiting from the program and learning some good skills to help her deal with her issues. She is making plans to attend the [facility] program after she finishes here. Current Psychiatric Medications: [] Zoloft 100 mg p.o. daily; doxepin 20 mg p.o. daily; BuSpar 20 mg p.o. 3 times a day; Remeron 45 mg p.o. nightly; Campral 666 mg p.o. 3 times daily Mental Status Examination: [] The patient is a 39-year-old thin female who is casually dressed and groomed with good hygiene. She has no psychomotor agitation or retardation. She has good eye contact and is cooperative and pleasant during the interview. Her mood is euthymic today. Affect is full and normal. Thought process is goal-directed and organized. Thought content: No evidence of suicidal or homicidal ideation, hallucinations or delusions. Judgment is intact. Impulsivity: Low to moderate. Insight: Some present and improving. Diagnoses: [] [place] I: [] Major depressive disorder, recurrent moderate; generalized anxiety disorder; alcohol use disorder (sober x37 days). [place] II: [] Deferred [place] III: [] Chronic neck pain due to herniated disc [place] IV:[]] Primary support and substance use issues Plan: [] The patient will continue the IOP program at [facility] as the support, structure, education, individual and group therapy will hopefully benefit the patient and prevent worsening of her symptoms. The risk, options and possible complications and side effects of the medication were discussed with the patient and she understands and accepts these. She felt safe during the interview and if at any time she does not feel safe she will tell us or go to the emergency room. Due to the persistence of some panic attacks and anxiety still the patient Zoloft was increased to 150 mg p.o. daily. In addition Vistaril 50 mg p.o. as needed for panic attacks was given to the patient. These 2 prescriptions were sent in to the pharmacy. No other medication changes were made.
--- NOTE | 2019-08-20 09:05 | BH.SGPN.GN ---
Behaviors/Verbalizations/Mental Status: [] Eye contact is good. Motor activity is appropriate. Appearance is casual. Speech is Appropriate. Mood is anxious. Affect is congruent. Thoughts are linear and logical. No evidence of psychosis. Reviewed daily check in sheet and no reports of suicidal ideations or intent. Client Response/Progress/Benefit: [] Pt was an active participant in group discussion. Provided appropriate feedback to peers. Daily symptom tracker notes 3/5 for anxiety and agitation and 2/5 for panic. Talked at length regarding some difficulty with support. Feels angry that her support is telling other friends and family about her recent struggles. Shared how this impacts her. Wants to communicate this assertively w/o causing conflict or argument with support. Was receptive to feedback from other group members on this topic. Proud of herself for trying to work through these emotions and concerns rather than getting yelling, avoiding, and drinking. Progress noted per pt report. Benefited from group support, encouragement, and feedback. Will continue in IOP to prevent decompensation, provided support, and increase healthy coping skills. Narrative Note: []
--- NOTE | 2019-08-20 10:08 | BH.SGPN.GN ---
Behaviors/Verbalizations/Mental Status: []Client alert and oriented, casually dressed and groomed. Eye contact good. Motor activity appropriate. Speech within normal limits. Affect congruent, mood euthymic. Thoughts linear, logical, no signs of hallucinations or delusions. Client Response/Progress/Benefit: []Client responded well to session and contributed to discussion, reported connecting to idea that we control our response to life?s events. Client shared difficulties in remembering this when feeling overwhelmed or wanting to control someone else?s choices. Connected with the group topic of crisis and did well to work with group to define crisis. Group identified examples of potential crisis to include loss of a loved one, relationship problems, divorce, job loss, and medical problems. Client agreed with peers that anything can lead to a crisis. Connected with discussion on how coping with external crisis by using unhealthy coping skills could result personal crisis. Group identified unhealthy coping skills to include; using substances, sleep, avoidance/isolation, anger outbursts, suicidal thoughts, and self-harm. Group reported that it is important to have awareness of warning signs in order to prevent crisis. Group identified warning signs for crisis and Client completed the personal warning signs worksheet. Identified crisis warning signs to include; increased negative thoughts, not sleeping, and memory loss. Benefited from group by increasing awareness of crisis and personal warning signs. Progress noted in client?s improved insight and ability to engage in healthy coping as well as set internal boundaries. Will continue IOP tx to improve application of skills learned, prevent decompensation, and reduce mental health sx. Narrative Note: []
--- NOTE | 2019-08-20 11:05 | BH.SGPN.GN ---
Behaviors/Verbalizations/Mental Status: []Pt eye contact good, casually dressed, motor activity appropriate, speech normal rate and tone, mood euthymic, congruent affect, thoughts linear and intact, no evidence of delusions or hallucinations. Client Response/Progress/Benefit: []Client responded well to session as evidenced by client listening attentively to others and providing input throughout session. Client identified her warning signs for crisis and gained further awareness of earliest warning signs. Client appeared to connect that awareness of these warning signs can prevent further crisis and help client utilize healthy coping skills to break the cycle. Client created a crisis action plan to help client better manage warning signs for crisis. Client?s plan included: exercising, identifying at least two daily positives, eating healthy, setting alarms, and using visual aids as reminders of what need to do. Client created her crisis survival kit by choosing various tangible items that remind her of various skills from crisis intervention plan. Client appeared to benefit from creating a crisis action plan and increasing self-awareness. Client to continue IOP to prevent decompensation, maintain gains, and continue use of healthy coping. Narrative Note: []
--- NOTE | 2019-08-20 20:46 | BH.MDN ---
Multi-Disciplinary Note - Note 30-min Individual Date: 08/20/19
--- NOTE | 2019-08-23 10:05 | BH.SGPN.GN ---
Behaviors/Verbalizations/Mental Status: []Pt eye contact good, casually dressed, motor activity appropriate, speech normal rate and tone, mood euthymic, congruent affect, thoughts linear and intact, no evidence of delusions or hallucinations. Client Response/Progress/Benefit: []Pt was an engaged participant throughout group session AEB pt contributing thoughts during discussion, listening attentively and taking notes throughout. Pt seemed to connect with group comments that we can control how we cope with stressors. Group identified unhealthy coping skills which included: substance use, avoidance, sleep, isolation, and suicidal behavior. Pt stated she often deals with stress by stuffing emotions, which she recognizes makes the problem bigger. Pt reported 50 days ago she dealt with her stressors by drinking alcohol. Group worked together to identify potential barriers of using healthy coping which included: no motivation, apathy, comfort zone, habitual, learned behaviors and fear. Pt seemed to benefit from increased awareness of importance of increasing healthy coping skills and consequences of utilizing unhealthy coping skills. Pt to continue IOP level of care to maintain sobriety, continue use of healthy coping and prevent decompensation. Narrative Note: []
--- NOTE | 2019-08-23 11:20 | BH.SGPN.GN ---
Behaviors/Verbalizations/Mental Status: []Client alert and oriented, casually dressed and groomed. Eye contact good. Motor activity appropriate. Speech within normal limits. Affect congruent, mood euthymic. Thoughts linear, logical, no signs of hallucinations or delusions. Client Response/Progress/Benefit: []Client responded well to session, taking notes and engaged during discussion. Client appeared to connect with the activity from second group and listened as the group worked to identify benefits of having a strong foundation of internal and external coping skills. Client actively contributing as the group discussed the different categories of coping skills which included distraction, emotional release, grounding, self-love, and thought challenging. Client provided examples for each and acknowledged the importance to having a variety of coping skills. Client provided several good ways to practice self-love including recognizing daily wins. Client created a coping skills ?menu? for the five categories of coping skills. Client identified seeing improvements in self-love since beginning IOP tx and expressed wanting to focus on improving more actively engaging in thought challenging skills this week. Client appeared to benefit from increasing her repertoire of healthy coping skills. Client progressing as shown by her report of improved self-care and communication with supports. Will continue IOP tx to prevent decompensation, improve mood stability, and promote healthy change behaviors. Narrative Note: []
--- NOTE | 2019-08-23 15:01 | BH.COMM ---
Communication Note - Communication with Client Communication Note: This therapist met with pt to review weekend and discuss what pt would like to get out of family session scheduled for this Friday. Pt stated overall weekend went okay for her. Pt reported now that she is sober she is able to clearly see how the way her family manages conflict is not healthy. Pt stated her famiily and self often move on after a conflict with never solving the issue. Pt reported family session this week she is ready to take responsibility and apologize for the hurt she put her family through for all the years she was drinking alcohol. Pt stated she hasn't made amends with any of her family members since being sober because worried what she says won't be perfect. With challenge by this therapist pt recognzies she doesn't have to be perfect she just needs to communicate honestly with them. Pt stated she would like to focus on improving communication within the family unit.
--- NOTE | 2019-08-25 09:05 | BH.SGPN.GN ---
Behaviors/Verbalizations/Mental Status: [] Eye contact is good. Motor activity is appropriate. Appearance is casual. Speech is Appropriate. Mood is euthymic. Affect is full. Thoughts are linear and logical. No evidence of psychosis. Reviewed daily check in sheet and no reports of suicidal ideations or intent. Client Response/Progress/Benefit: [] Pt was an active participant in group discussion. Emotion for today is happy. Shared that she is 44 days sober today. Managing her emotions effectively. Discussed some recent events where she was assertive. Learning to communicate better with family and set boundaries. Discussed some stressors however believes that she has them under control. Progress noted per pt report. Benefited from group support, encouragement, and feedback. Will continue in IOP to maintain prevent decompensation and maintain gains. Narrative Note: []
--- NOTE | 2019-08-26 11:14 | BH.SGPN.GN ---
Behaviors/Verbalizations/Mental Status: []Eye contact is good. Motor activity is appropriate. Appearance is casual. Speech is Appropriate. Mood is euthymic. Affect is congruent. Thoughts are linear and logical. No evidence of psychosis. Client Response/Progress/Benefit: []Pt did well to participate in group activity, provided input during discussion. Pt worked with group members to identify connections between activity and strategies for overcoming barriers to making mental health changes. Pt noted that low motivation and urges to procrastinate can be a barrier to ?turning over a new leaf? in her personal life. Pt did well to identify a specific change she would like to make for her mental health, barriers to making that change, and a SMART goal to reach that change. Shared she would like to work on improving ability to be more comfortable with the uncomfortable. Discussed that this change would help to increase ability to work through difficult emotions, ask for help, and make progress with mental health. Pt benefited from working with group to identify strategies to overcome barriers to change and create a plan for implementing one small change promoting personal growth. Pt recommended to continue IOP tx to increase effective communication with supports, improve ability to challenge distorted thoughts, promote change behaviors, and prevent decompensation. Narrative Note: []
--- NOTE | 2019-08-27 09:00 | BH.SGPN.GN ---
Behaviors/Verbalizations/Mental Status: [] Eye contact is good. Motor activity is appropriate. Appearance is casual. Speech is Appropriate. Mood is euthymic. Affect is full.Thoughts are linear and logical. No evidence of psychosis. Reviewed daily check in sheet and no reports of suicidal ideations or intent. Client Response/Progress/Benefit: [] Pt participated at times during group discussions on vulnerability and anxiety/fears related to Coronavirus. Daily symptom tracker notes 2/5 for anxiety, panic, and agitation. Shared some recent mental health wins as she is being more assertive with others and not avoiding tasks. Shared some stressors related to her support. Progress noted per pt report. Benefited from group support, encouragement, and feedback. Will continue in IOP to maintain gains. Narrative Note: []
--- NOTE | 2019-08-27 10:16 | BH.SGPN.GN ---
Behaviors/Verbalizations/Mental Status: []Client alert and oriented, casually dressed and groomed. Eye contact good. Motor activity appropriate. Speech within normal limits. Affect congruent, mood euthymic. Thoughts linear, logical, no signs of hallucinations or delusions. Client Response/Progress/Benefit: []Client responded well to session, attentive and engaged throughout. Participated in group discussion to define conflict and identify differences between internal and external conflict. Client shared that she often struggles with internal conflict and justifying reasons to avoid conflict in other areas of her life which has led to unhealthy coping in the past. Group reported the benefits of addressing conflict included increased self-confidence, increased trust in relationships, having needs be met, and preventing further conflict from arising. Group identified and discussed consequences of not addressing conflict in healthy ways which included: decreased self-esteem, damaged relationships, increased mental health symptoms, and additional stressors developing as a result. Benefited as client was able to identify current conflict style and how it impacts her mental health and relationships with others. Noted she often is avoiding, accommodating, or competing and that this has impacted relationships in the past. Shared struggling with minimizing until she ?explodes? and ends up projecting on others. Progress noted as shown by client?s report of improved insight, though she continues to struggle with communication with supports. Will continue IOP tx to promote insight and application of healthy skills, reduce mental health sx severity, and further improve daily functioning. Narrative Note: []
--- NOTE | 2019-08-27 11:20 | BH.SGPN.GN ---
Behaviors/Verbalizations/Mental Status: []Client alert and oriented, casually dressed and groomed. Eye contact good. Motor activity appropriate. Speech within normal limits. Affect congruent, mood euthymic. Thoughts linear, logical, no signs of hallucinations or delusions. Client Response/Progress/Benefit: []Client passive participant AEB client not providing any input during group discussion, however appeared to listen attentively to peers and take notes. Listened to ongoing discussion of the different conflict resolution styles, drawbacks, and appropriate times of use. Client stated when faced with conflict she first attempts to avoid then will accommodate if can't avoid. Client stated sometimes avoidance and accommodation will result in competing because increases anger when doesn't get needs met. Client reported she wants to move towards a more collaborative approach to resolving conflict so all people involved feel heard. Client appeared to benefit from increasing awareness of her personal conflict resolution style and from learning ways to increase healthy conflict resolution. Will continue tx to maintain gains, continue use of healthy coping and prevent decompensation. Narrative Note: []
--- NOTE | 2019-08-27 20:47 | BH.MDN ---
Multi-Disciplinary Note - Note Family Date: 08/27/19
--- NOTE | 2019-08-30 09:10 | BH.SGPN.GN ---
Behaviors/Verbalizations/Mental Status: [] Eye contact is good. Motor activity is appropriate. Appearance is causal. Speech is Appropriate. Mood is euthymic. Affect is full. Thoughts are linear and logical. No evidence of psychosis. Reviewed daily check in sheet and no reports of suicidal ideations or intent. Client Response/Progress/Benefit: [] Pt was an active participant on group discussion regarding anxiety/fear related to COVID-19 and ways to help manage emotions. Emotion for today is happy. Discussed her family session last week and feels that it was beneficial to the family. Stressors related to school closures due to COVID-19 and how it impacts family, however they are getting along well. Being productive and managing emotions effectively. Shared with the group that she only has one more day of IOP left which is causing some anxiety, however believes that she has the skills to continue to succeed. Briefly talked about her aftercare. Progress noted per pt report. Will continue in IOP to maintain gains. Narrative Note: []
--- NOTE | 2019-08-30 10:15 | BH.SGPN.GN ---
Behaviors/Verbalizations/Mental Status: []Client alert and oriented, casually dressed and groomed. Eye contact good. Motor activity appropriate. Speech within normal limits. Affect congruent, mood euthymic. Thoughts linear, logical, no signs of hallucinations or delusions. Client Response/Progress/Benefit: []Client responded well to session, attentive and providing input to discussion. Client reported when she puts others needs ahead of her own it results in her feeling overwhelmed. Client stated in the past she would then drink to cope with being overwhelmed. Group identified the benefits to setting boundaries as well as the consequences of not setting healthy boundaries. Participated in the discussion of benefits of setting boundaries which included; increase control over situations, self-protection, self care, and ability to manage mental health better. Client stated she has been focused on setting boundaries because recognizes she deserves to have her needs met. Client seemed to benefit from increased awareness of how poor boundaries can negatively impact mental health. Will continue IOP tx to prevent decompensation, maintain sobriety and challenge distortions. Narrative Note: []
--- NOTE | 2019-08-30 11:17 | BH.SGPN.GN ---
Behaviors/Verbalizations/Mental Status: []Client alert and oriented, casual dress, hygiene appropriate. Eye contact good. Motor activity appropriate. Speech within normal limits. Affect congruent, mood irritable/euthymic. Thoughts linear, logical, no signs of hallucinations or delusions. Client Response/Progress/Benefit: []Client responded well to session, providing supportive statements to peers and personal experiences. Client engaged in the boundary self-assessment activity and worked with group to further process. Client able to use the activity as a reflection of her progress with becoming more flexible in her boundary setting. 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 when it came to emotions and personal issues. Client reported she now experiences the benefits of openly communicating needs and feelings with her close supports. Self-identified as having all three boundary setting styles, but she is working more on being flexible. Client stated she has been asking herself ?is this benefiting my family? and if the answer is no, client sets a boundary. Progress noted in client?s report of ongoing sobriety and consistent report of using healthy coping skills to manage symptoms. Client to continue IOP tx to promote gains and further reinforce healthy coping skills before discharge. Narrative Note: []
--- NOTE | 2019-09-02 09:09 | BH.SGPN.GN ---
Behaviors/Verbalizations/Mental Status: []Client alert and oriented, casual dress, hygiene tended to. Eye contact good. Motor activity appropriate. Speech within normal limits. Affect congruent, mood euthymic, slightly anxious. Thoughts linear, logical, no signs of hallucinations or delusions. Reviewed client?s symptom tracker, no signs of suicidal ideation, plan, or intent as of today. Client Response/Progress/Benefit: []Pt responded well to session AEB pt listening to others and sharing thoughts and feelings openly with group. Pt stated her current stressor is having her kids home all the time because it's increasing frustration due to self-isolation for coronovirus pandemic Pt reported a mental health positive is not freaking out on her kids when feeling frustrated with them. Pt stated she has been working on not having anger outbursts with her kids. Pt reported another mental health positive is being sober for 52 days. Pt stated yesterday she had the urge to drink because was feeling very overwhelmed. Pt reported instead of drinking she gave her keys to her mom and used a lot of self-talk. Pt stated she also communicated to her how she was feeling, which is something she wouldn't have done in the past. Pt able to note significant progress since starting IOP. Pt discharging from IOP today. Narrative Note: []
--- NOTE | 2019-09-02 11:13 | BH.SGPN.GN ---
Behaviors/Verbalizations/Mental Status: []Client alert and oriented, neatly dressed and groomed. Eye contact good. Motor activity appropriate. Speech within normal limits. Affect constricted, mood euthymic. Thoughts linear, logical, no signs of hallucinations or delusions. Client Response/Progress/Benefit: []Client responded well to session, contributing to discussion and providing good feedback. Client appeared to connect with maintenance cycles and recognized how negative thinking can keep a person stuck. Client identified a negative thought that has kept her stuck. Client shared going through the program has helped client be more mindful of her distorted thoughts. Client's thought was I'm not good at it? Client able to connect how this thought maintains depressive cycles and avoidance. Client reported when she thinks this way she does not try things and nothing gets done. Client able to reframe the thought by saying I can set small goals and get things accomplished. Client shared this thought would improve her mental health because it would help client take action and increase her confidence. Client appeared to benefit from practicing challenging negative thinking. Will discharge from IOP tx today as she has made significant progress and no longer meets criteria for IOP level of care. Narrative Note: []
--- NOTE | 2019-09-02 14:37 | BH.DS ---
Discharge Summary - Demographics Date of Admission:: 08/03/19 Discharge Date: 09/02/19 Presenting Problems at Admission:: Pt completed PHP program from 07/21/19-07/30/19 and stepped down to [facility] for lower level of care. Pt was 22 days sober from alcohol. Pt continued to endorse anxious and depressed symptoms with low energy, ruminations, racing thoughts, anhedonia, and low motivation. Denies current suicidal ideation, plan or intention to date. Prior to PHP pt had suicidal ideation with idea of overdosing. Pt stateed her mood had improved since completing PHP. Discharge Diagnoses:: Major depressive disorder, recurrent moderate; generalized anxiety disorder; alcohol use disorder (sober 52 days). Reason for Discharge:: Pt has made significant treatment progress and no longer meets medical necessity for [facility] level of care. - Treatment Progress During Treatment & Response: Completed DSM-5 cross cutting scales which indicates a 55% reduction in symptoms since starting the program. Notes 50% reduction in depression scores, 27% reduction in anxiety scores, and 100% reduction in alcohol use (52 days sober). Attended program consistently. Active participant in group therapy providing input throughout and engaging in activities. Pt often completed assigned homework from individual counseling. Issues Still to be Addressed:: Pt could benefit from continued focus on reinforcing healthy coping skills, challenging distorted thoughts, and increased awareness of triggers for alcohol relapse. Pt could also benefit from marriage and family counseling to help rebuild relationships now that pt is sober. Discharge Recommendations/Instructions:: 1. Appintment with [facility] for 09/07/19 for psychiatry. 2. Pt to call [facility] to establish with individual counselor. Pt states she had not scheduled prior to discharge becasue didn't believe they would meet with her due to coronavirus. Therapist encouraged her to call since most agencies are moving to telehealth. Discharge Handout: Complete Discharge Handout with client on aftercare options and continuity of care.
--- NOTE | 2019-09-02 16:50 | BH.MDN ---
Multi-Disciplinary Note - Note 45-min Individual Time Started:: 10:10 Date: 09/02/19 Purpose of session/treatment goals addressed:: Purpose of session was to identify IOP treatment progress, identify strategies to maintain progress, and solidify aftercare plans. Eye Contact:: Good Motor Activity:: Appropriate Appearance:: Casual Speech:: Appropriate Mood:: Euthymic Affect:: Congruent Thoughts:: Linear, Logical, No evidence of hallucinations/delusions noted Staff Interventions:: Therapist used open ended questions to elicit pt's thoughts about treatment progress since starting IOP level of care. Therapist worked collaboratively with pt to identify strategies and skills that can help pt maintain progress post discharge from IOP. Therapist solidified pt's aftercare plans post discharge from IOP. Client Response:: Pt reported since starting IOP she has made signficiant progress with decreased depressive and anxious symptoms. Pt stated she has progressed with being able to maintain sobriety since starting IOP, being 52 days sober today. Pt reported she has progressed with improved communciation, taking medications consistently, improved emotional regulation, decreased overreactivity, and improved outlook on life. Pt identified strategies that can help her maintain progress include: setting daily goals, communcating openly with supports, using positive self-talk, being aware of triggers, continuing to recognize and challenge distortions, doing a grateful journal, and referring back to IOP binder. Pt stated for aftercare she has an appointment set up for 09/07/19 at [facility] for psychiatry. Pt reported she did not contact [facility] for individual counseling because wasn't sure agencies were still accepting patients due to the coronavirus. After processing importance of counseling, pt agreeable to contact [facility] today to get a session scheduled. Risks/Concerns:: Pt denies suicidal ideation, plan or intention to date. Progress Toward Goals/Plan:: Progress noted with pt reporting decrease in both depressive and anxious symptoms. Pt able to maintain sobriety throughout time in IOP. Pt has improved communication, increased emotional regulation, increased repertoire of healthy coping and increased awareness of thought patterns. Pt to discharge from IOP today. Time Stopped:: 10:50
== END 2019-09-14 23:59 ==
LOC: BHIOP 09:00
PROVIDERS: Referring Provider Psychiatry & Neurology Psychiatry; Visit Provider Psychiatry & Neurology Psychiatry
DX: F33.1 Major depressive disorder, recurrent, moderate (principal); F41.1 Generalized anxiety disorder; Z72.89 Other problems related to lifestyle; Z79.899 Other long term (current) drug therapy; G89.29 Other chronic pain; M50.20 Other cervical disc displacement, unspecified cervical region
CPT/HCPCS: H0035; H2012; 90832; 90834; 90853

== ENCOUNTER 2019-10-28 14:00 | Outpatient (RCR) | payer BC, SELFPAY ==
--- NOTE | 2019-10-28 14:00 | BH.SGPN.GN ---
Behaviors/Verbalizations/Mental Status: []Client alert and oriented, casual dress, hygiene tended to. Eye contact good. Motor activity appropriate. Speech within normal limits. Affect congruent, mood euthymic. Thoughts linear, logical, no signs of hallucinations or delusions. Client Response/Progress/Benefit: []Pt reported since discharging from [facility] she has backslid a little bit with not using her skills consistently. Pt stated she doesn't have a current routine and can't find things to fill her time since she has to stay at home due to the coronavirus. Pt reported she has been able to maintain sobriety and is over a 100 days sober now. Pt worked cooperatively with group to identify benefits of having a daily routine. Pt engaged in brainstorming of various daily routine ideas. Pt completed task of creating a daily morning routine. Pt stated her morning routine will be: getting up by 8am, showering, reading, eating breakfast, saying daily mantra, and cleaning her floors. Pt agreeable to work on homework of finishing her routine to include afternoon and evening. Pt seemed to benefit from support from peers and learning about benefits of routine. Pt's first day in aftercare group. Pt to continue aftercare group to improve consistent use of healthy coping, maintain sobriety and prevent decompensation. Narrative Note: []
--- NOTE | 2019-10-28 14:11 | BH.MTP ---
Master Treatment Plan - Patient Information Program Physician:: Dr. Pascal Primary Therapist:: Rylee Alvarez [facility] - Psychiatric Diagnoses Psychiatric Diagnoses:: Major depressive disorder, recurrent moderate; generalized anxiety disorder; alcohol use disorder (sober 52 days). Diagnosis Code(s):: F33.2 - Estimated LOS Estimated LOS (in weeks):: 12 Problem/Goal #1 - Problem/Goal #1 Stated Goal:: Pt will maintain or see a reduction in symptoms AEB pt?s score on the DSM 5 cross-cutting measure and improve pt?s daily functioning. - Objectives Objective #1 Stated Objective: Pt will continue to consistently apply health coping skills and strategies to maintain progress made through the IOP treatment program. Interventions: Through group therapy, pt will review warning signs/ triggers, as well as healthy coping skills used in the IOP treatment program to successfully maintain gains while transitioning into outpatient therapy. Discharge Criteria: Pt will have met this goal when pt?s score on the DSM 5 cross cutting measure has successfully remained stable or decreased over a period of 12 weeks and per pt?s report. Target Date: 01/20/20 Review Date: 12/09/19 Objective #2 Stated Objective: Pt will learn and successfully implement two to three maintenance strategies to prevent decompensation through the Aftercare group. Interventions: Through groups therapy, pt will be provided with education on healthy maintains behaviors and relapse prevention techniques to prevent decompensation. Discharge Criteria: Pt will have met this goal when can report consistently using at least 2 maintenance skills to prevent decompensation. Target Date: 01/20/20 Review Date: 12/09/19
--- NOTE | 2019-11-03 09:06 | BH.COMM ---
Communication Note - Communication with Client Communication Note: Client called in to facility stating she was out of prescription medication and does not meet with her new psychiatrist until 11/23/19. Dr. Pascal gives verbal order for medication refills. Medication refills called into [facility] in [place] at this time per client's request.
--- NOTE | 2019-11-05 14:06 | BH.SGPN.GN ---
Behaviors/Verbalizations/Mental Status: []Client alert and oriented, casual dress, hygiene tended to. Eye contact good. Motor activity appropriate. Speech within normal limits. Affect congruent, mood euthymic. Thoughts linear, logical, no signs of hallucinations or delusions. Client Response/Progress/Benefit: [] Pt receptive of session, engaged throughout. Notes feeling happy today as she was able to make progress in her relationship with her son which has been a stressor. Shared accomplishing part of her routine goal from last week but struggled to recite her daily mantra due to forgetting. Receptive of discussion on personal accountability and it?s importance in maintaining mental health stability. Pt worked cooperatively with group to identify benefits of maintaining personal accountability. Engaged in discussion on different accountability styles and brainstorming strategies for improving ability to hold themselves accountable. Pt identified that she would like to complete her ?vision board? for homework as a visual reminder to hold herself accountable for current working on current goals. Pt seemed to benefit from support from peers and increasing understanding of personal accountability benefits and strategies. Progress noted in ability to begin last week?s daily routine homework. Pt to continue aftercare group to improve consistent use of healthy coping, maintain sobriety and prevent decompensation. Narrative Note: []
== END 2019-11-14 23:59 ==
LOC: BHOG 14:00
PROVIDERS: Referring Provider Psychiatry & Neurology Psychiatry; Visit Provider Psychiatry & Neurology Psychiatry
DX: F33.2 Major depressive disorder, recurrent severe without psychotic features (principal); F41.1 Generalized anxiety disorder; Z72.89 Other problems related to lifestyle
CPT/HCPCS: 90853

== ENCOUNTER 2019-11-18 14:00 | Outpatient (RCR) | payer OTHER, BC, SELFPAY ==
--- NOTE | 2019-11-18 14:05 | BH.SGPN.GN ---
Behaviors/Verbalizations/Mental Status: []Client alert and oriented, casually dressed. Eye contact good. Motor activity appropriate. Speech within normal limits. Affect constricted, mood euthymic. Thoughts linear, logical, no signs of hallucinations or delusions. Client Response/Progress/Benefit: []Pt responded well to session AEB pt providing input during discussion and listening attentively to peers. 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 Pt identified she used the skill of sitting with uncomfortable emotions when she was upset with her . Pt stated she changed the way she responded to her , which helped resolve the conflict in a healthier manner. Pt engaged in discussion about self-love. Connected with others that engaging in self-love is not something she has been doing often. Pt worked with group to identify strategies to increase self-love. Pt reported she wants to work on improving self-love by learning to say no and setting boundaries. Pt seemed to benefit from reviewing treatment progress and stressors as well as learning about how to increase self-love. Pt to continue [facility] aftercare program to maintain treatment progress, continue use of healthy coping, and prevent decompensation. Narrative Note: []
--- NOTE | 2019-11-25 14:07 | BH.SGPN.GN ---
Behaviors/Verbalizations/Mental Status: []Client alert and oriented, casual dress, hygiene tended to. Eye contact good. Motor activity appropriate. Speech within normal limits. Affect congruent, mood euthymic. Thoughts linear, logical, no signs of hallucinations or delusions. Client Response/Progress/Benefit: []Pt receptive of session, engaged throughout. Notes feeling happy today as she was able to make time for personal self-care which had been her self-love goal from last week. Shared she usually puts her family?s needs ahead of her own, so she felt proud of herself for making her own needs a priority without guilt for once. Receptive of discussion on self-talk and it?s influence in maintaining long-term mental health stability. Pt worked cooperatively with group to identify benefits of positive affirmations in improving self-talk and overall ability to better manage potential mental health setbacks. Engaged in discussion on barriers impacting our ability to use or believe affirmations al statements, indicating that she was taught to pay attention to what needs fixed rather than the positives. Connected with the strategies for improving effective creation and application of believable personal affirmations. Pt identified personal affirmation statements she would like to begin using and identified that she would like to practice saying these to herself daily. Progress noted in ability to begin prioritizing her own self-care needs and challenge guilt associated. Pt to continue aftercare group to improve consistent use of healthy coping, maintain sobriety and prevent decompensation. Narrative Note: []
--- NOTE | 2019-12-09 14:29 | BH.MTP_ITS ---
Treatment Plan Review Date of Admission:: 10/28/19 Date of Treatment Plan Review:: 12/09/19 Admitting Diagnoses:: Major depressive disorder, recurrent moderate; generalized anxiety disorder; alcohol use disorder, in early remission. Current Diagnoses:: F33.2 Patient's Response to Treatment:: Pt engaged in aftercare group AEB pt's consistent attendance, contributions in group and honest self-reflection. Pt stated she has been struggling recently because she has made a medication change due to have side effects from her last medication. Pt reported since making the medication change she has noticed her depressive and anxious symptoms have in creased. Pt stated she is still utilizing her healthy skills, but finding herself easily frustrated at times. Status of Current Problems and Symptoms: Struggling with increased anxiety and depression since recent medication change. At times continues to have a difficult time managing stress in the moment, but has been working on doing better with thinking before she responds. Pt has been able to maintain sobriety. Problem #1 Problem Name:: Pt will maintain or see a reduction in mental health symptoms Status of Goals:: Obj 1 - Pt is showing decompensation with her depressive and anxious symptoms as evidenced by the DSM 5 cross-cutting measure. Pt's depressive symptoms increased by 66% and anxious symptoms increased by 40%. Pt's overal mental health symptoms increased by 27%. Able to maintain sobriety from start of aftercare program until review. Obj 2 - Pt is able to verbalize at least 2 of the maintenance skills, but is struggling with applying skills; especially during the medication change. Team Recommendations:: Team recommends pt continue IOP aftercare group in addition to attending regular outpatient counseling in order to decrease depressive and anxious symptoms as well as prevent further decompensation.
== END 2019-12-14 23:59 ==
LOC: BHOG 14:00
PROVIDERS: Referring Provider Psychiatry & Neurology Psychiatry; Visit Provider Psychiatry & Neurology Psychiatry
DX: F33.2 Major depressive disorder, recurrent severe without psychotic features (principal); F41.1 Generalized anxiety disorder; Z72.89 Other problems related to lifestyle
CPT/HCPCS: 90853

== ENCOUNTER 2019-12-16 14:00 | Outpatient (RCR) | payer OTHER, BC, SELFPAY ==
--- NOTE | 2019-12-16 14:05 | BH.SGPN.GN ---
Behaviors/Verbalizations/Mental Status: []Client alert and oriented, neatly dressed and groomed. Eye contact good. Motor activity appropriate. Speech within normal limits. Affect unable to gather due to wearing a mask for COVID-19 protocol, mood euthymic and anxious. Thoughts linear, logical, no signs of hallucinations or delusions. Client notes she has been ruminating. Client Response/Progress/Benefit: []Client responded well to session, receptive to feedback and sharing supportive statements to peers. Client reports multiple mental health wins today and no stressors. Client reviewed her GAPs and shared she had been ruminating about last week's group which motivated client to take action and increase the use of her coping skills. Client shared I realized I wasn't keeping up my end of the deal and I didn't to do my shit. Client reports in the last week she has been reading, taking her medications, doing hair, and practicing self-care. Client reports no stressors today besides rumination. Client participated in the group discussion of maintenance and the benefits of creating a maintenance plan. Client contributed as the group discussed what components make up a maintenance plan. Client created her own maintenance plan for anxiety. Client identified warning signs which included: shortness of breath, restlessness, isolation, not setting boundaries, and sleep issues. Client's coping skills included: thought challenging, grounding, opposite action, deep breathing, and mindfulness. Client reported she can also talk with his supports and schedule more therapy sessions when she recognizes warning signs. Appeared to benefit from creating a maintenance plan to promote gains and prevent setbacks. Will continue aftercare next week. Narrative Note: []
--- NOTE | 2019-12-30 14:07 | BH.SGPN.GN ---
Behaviors/Verbalizations/Mental Status: [] Client alert and oriented, neat and casually dressed. Eye contact good. Motor activity appropriate. Speech within normal limits. Affect congruent, mood euthymic. Thoughts linear, logical, no signs of hallucinations or delusions. Client Response/Progress/Benefit: []Pt responded well to session AEB pt providing input during discussion and listening attentively to peers. Pt reported she feels ?re-energized? today as over the past week she has been taking steps to more intentionally apply skills for maintaining mental health progress. Reports she engaged in self-reflection and discovered recently she has been less active in her overall skill application and feels guilty about this. Shared taking the initiative to attend an AA meeting today despite not wanting to as a result and indicated feeling more positive as a result. Pt actively engaged in discussion about self-advocacy. Connected with others that engaging in self-advocacy can be difficult when it involves setting or maintaining boundaries with loved ones. Pt worked with group to identify strategies to overcome barriers and increase ability to advocate for oneself. Pt reported she wants to work on improving self-advocacy by regularly checking-in with herself and reminding herself of the importance of prioritizing her own needs as well. Pt seemed to benefit from reviewing treatment progress and skill application, as well as learning about how to increase self-advocacy. Pt to continue aftercare program to maintain treatment progress, continue use of self-accountability in maintaining healthy coping, and prevent decompensation. Narrative Note: []
--- NOTE | 2020-01-13 13:51 | BH.DS_ITS ---
Discharge Summary - Demographics Date of Admission:: 10/28/19 Discharge Date: 01/13/20 Presenting Problems at Admission:: Pt completed [facility] program from 07/21/19- 07/30/19 and stepped down to [facility] for lower level of care and discharged from [facility] on 09/02/19. At discharge, pt was 56 days sober from alcohol. At admission to [facility] aftercare, pt continued to endorse anxious and depressed symptoms of mild to moderate intensity. Pt was still experiencing some difficulty verbalizing her emotions, setting boundaries, and challenging thoughts as well. Discharge Diagnoses:: Major depressive disorder, recurrent moderate F33.2; generalized anxiety disorder; alcohol use disorder in partial remission. Reason for Discharge:: Pt has demonstrated ability to maintain gains made in [facility] aftercare AEB her overall DSM-5 scores reducing since admission and treatment plan review. Additionally, client has accomplished treatment goals and no longer meets criteria for [facility] aftercare level of tx. - Treatment Progress During Treatment & Response: Pt was actively engaged in aftercare group AEB pt's consistent attendance, contributions in group and honest self- reflection. Pt was honest about her symptoms, stressors, and admitting to not following through with coping skills for a short time. Pt experienced a regression in symptoms around treatment plan review which were triggered partially by medication change. Pt was able to bounce back from her regression in symptoms and got back to being consistent with her coping skills by discharge. Because of client?s resilience, self-reflection, and application of coping skills, client?s DSM-5 scores decreased from admission to discharge. Pt?s DSM-5 scores decreased by 57% from treatment plan review to discharge. Pt?s depression reduced by 67% and her anxiety reduced by 90%. Issues Still to be Addressed:: Pt can benefit from ongoing outpatient counseling and medication management to promote gains and reinforce healthy coping skills. Pt can continue to work on assertive communication, thought challenging, boundary setting, and self-advocacy. Lastly, pt continues to be sober from alcohol and will benefit from continuing to reach out to supports such as AA and avoiding toxic environments that trigger urges to use. Discharge Recommendations/Instructions:: Pt is recommended to continue outpatien t counseling and medication management at [facility]. Discharge Handout: Complete Discharge Handout with client on aftercare options and continuity of care.
== END 2020-01-14 23:59 ==
LOC: BHOG 14:00
PROVIDERS: Referring Provider Psychiatry & Neurology Psychiatry; Visit Provider Psychiatry & Neurology Psychiatry
DX: F33.2 Major depressive disorder, recurrent severe without psychotic features (principal); F41.1 Generalized anxiety disorder; Z72.89 Other problems related to lifestyle
CPT/HCPCS: 90853

== ENCOUNTER 2019-12-31 14:36 | Emergency (ER) | payer BC, SELFPAY ==
[2019-12-31 14:36] VITALS: BP 127/70; PULSE 84; RESP 18; TEMP 36.7; O2SAT 99; BMI 28.1
--- NOTE | 2019-12-31 14:54 | CT_ITS ---
STUDY: CT ABDOMEN AND PELVIS WITHOUT CONTRAST REASON FOR EXAM: Female, 39 years old. LT FLANK PAIN SINCE LAST NIGHT. Prior tubal ligation RADIATION DOSAGE (If Supplied By Facility): CTDIvol = ( 10.05 ) mGy, DLP = ( 534.60 ) mGycm TECHNIQUE: Transaxial images were obtained from the dome of the diaphragm to the symphysis pubis without oral contrast, and without intravenous contrast. Sagittal and coronal images were reconstructed. Individualized dose optimization techniques were used for this CT. COMPARISON: None. FINDINGS: Bilateral breast implants. The visualized portions of the heart are within normal limits. Normal liver. Normal gallbladder and extrahepatic biliary system. Normal spleen. Normal pancreas. Normal bilateral adrenal glands. Normal right kidney. Normal left kidney. There is a small hiatal hernia. Normal small intestine. Normal colon. The appendix is visualized and appears normal. Normal abdominal aorta. Normal inferior vena cava. Normal retroperitoneum. Normal urinary bladder. There is a 3.8 cm x 3.8 cm cyst in the left ovarian cyst. A dominant 1.9 cm follicle is seen in the right ovary. There is a small umbilical hernia containing fat. Normal osseous structures. CT/Abdomen/Pelvis without Cont IMPRESSION: 3.8 cm x 3.87 m cyst in the left ovarian ovary. Electronically Signed: Catracho Argueta, at 16:00 EDT , Service support ,
[2019-12-31] MEDS: Ondansetron 4 MG/2 ML Vial IV (15:28)
[2019-12-31] MEDS: Ketorolac 30 MG/ML Syringe IV (15:29)
[2019-12-31] MEDS: HYDROmorphone 1 MG/ML Syringe IV (15:31)
[2019-12-31] MEDS: 0.9% Normal Saline 1,000 ML 125 ML IV (15:37)
--- NOTE | 2019-12-31 15:46 | ED.VISSUMM ---
- ER Visit Summary Date of Service: 12/31/19 Chief Complaint: [Flank pain] History of Present Illness: The patient is a 39 F [presents the emergency department complaint of flank pain that started yesterday. Patient states that the pain came on suddenly and was severe but then went away. Patient states the pain came back today and it tends to wax and wane in intensity. She describes it as left abdomen, radiating into her back. She is never had pain like this before. Patient denies any fevers. She denies any diarrhea. Patient has had some nausea but no vomiting. She denies any dysuria, hematuria, or frequency. Patient has no medical history. She has had prior tubal ligation.] Physical Examination: [HEENT-PERRLA, EOMI. Cranial nerves II through XII grossly intact. TMs clear. Mucous membranes moist. No adenopathy. Cardiovascular-regular rate and rhythm without murmur or ectopy Lungs-clear to auscultation, chest wall stable without crepitus or subcu emphysema Abdomen-normoactive bowel sounds, soft. Patient has tenderness palpation over the left lower quadrant with some guarding. Patient has CVA tenderness on the left. There is no rebound, rigidity, or peritoneal signs. Extremities-intact ?4, normal range of motion, normal pulses, atraumatic] Test Results: [CBC with differential obtained showed a white count 7.7, hemoglobin 13, hematocrit 41, platelet 294. Chemistries unremarkable. Urinalysis was normal. CT flank showed a left ovarian cyst measuring 3.8 x 3.87 cm otherwise nothing significant.] Emergency Department Course and Treatment: [IV line established on arrival. Patient was given Zofran, Toradol, Dilaudid which did give her good pain relief.] Treatment Plan: [We will be given a prescription for a few [place] for pain. She is advised to use ibuprofen as well for discomfort. Advised to return if increasing pain, fever, vomiting, or condition should worsen anyway. She is referred to [facility] for follow-up.] Disposition: [Discharged home in stable condition] Impression: [Abdominal pain Left ovarian cyst] This note was generated with [employer] software. It may contain incorrect words, spelling, and punctuation that were not noted in review of the chart prior to signing ED Disposition - Plan for ED Patient: Referrals: Care Physician,No Primary [Primary Care Provider] -
[2019-12-31 16:04] LABS: Absolute Neutrophil Count 4.5 X10^3/uL (2.0-7.7); Basophil# 0.03 X10^3/uL; Basophil% 0.4 % (0-1); Eosinophil# 0.08 X10^3/uL; Hemoglobin 13.1 g/dL (12.0-15.0); Lymphocyte % 34.9 % (19-41); Mean Corpuscular Hgb 30.6 pg (27.0-32.0); Mean Corpuscular Volume 95.8 fL (81-99); Mean Platelet Vol. 9.8 fl (6.2-12.0); Monocyte# 0.43 X10^3/uL; Monocyte% 5.6 % (0-10); NRBC Flagged by Analyzer 0 % (0-5); Neutrophil # 4.47 X10^3/uL (2.7-7.7); Neutrophil % 57.8 % (47-70); Platelet Count 294 K/mm3 (150-450); RBC Distribution Width CV 12.8 % (11.6-14.6); RBC Distribution Width SD 44.9 fl (35.1-43.9); Red Blood Count 4.28 M/mm3 (4.2-5.4); White Blood Count 7.7 K/mm3 (4.4-11.0)
[2019-12-31 16:14] LABS: Anion Gap 5 (5-15); BUN 12 mg/dL (7-18); BUN/Creat Ratio 14.2 RATIO (10-20); Calcium,Total 8.9 mg/dL (8.5-10.1); Chloride 104 mmol/L (98-107); Creatinine, Serum 0.85 mg/dL (0.55-1.02); EST Glomerular Filtration Rate 78 mL/min (>60); Est Glom Filt Rate - Afr Amer 95 mL/min (>60); Glucose 104 mg/dL (74-106); Sodium Level 137 mmol/L (136-145)
[2019-12-31 16:34] LABS: Bacteria 0 SEEN /hpf (None Seen); Mucous, Urine 0 SEEN /hpf (<or=2+); Red Blood Cells-Urine 0 SEEN /hpf (0-5); White Blood Cells 0 SEEN /hpf (0-5)
[2019-12-31 16:38] LABS: Color, Urine Yellow (Yellow); Glucose, Dipstick Normal (Normal); Ketone-Dipstick Negative (Negative); Leukocyte Esterase-Dipstick Negative /ul (Negative); Nitrite-Dipstick Negative (Negative); Occult Blood-Urine Negative /ul (Negative); Protein-Dipstick Negative (Negative); Urine Bilirubin Dipstick Negative (Negative); Urine Clarity Sl. Cloudy (Clear); Urine Urobilinogen Normal (Normal)
[2019-12-31 16:47] LABS: Squamous Epithelial Cells - UA 5-10 SEEN /hpf (5-10)
--- NOTE | 2019-12-31 16:55 | DCINST.ED_ITS ---
ED Disposition - Plan for ED Patient: Instructions: ED Abdominal Pain Unkn Cause Fem, ED Cyst Ovarian Prescriptions: Hydrocodone Bitart/Apap 5-325 [[place] 5MG-325MG] 1 tablet PO Q4H PRN PRN 2 Days #10 tablet PRN Reason: Pain Transmission Status: Sent to [id number] Referrals: Care Physician,No Primary [Primary Care Provider] - Shailesh Mireles MD [STAFF PHYSICIAN] - 3-5 Days
[2019-12-31 17:08] VITALS: BP 111/75; PULSE 73
== END 2019-12-31 17:10 | disposition home or self-care (01) ==
LOC: ED 15:18
PROVIDERS: Emergency Provider Emergency Medicine
DX: N83.202 Unspecified ovarian cyst, left side (principal)
CPT/HCPCS: 74176; 80048; 81001; 85025; 96361; 96374; 96375; 99283; J7030; A4216; J2405

== ENCOUNTER → 2020-02-11 09:10 | Outpatient (CLI) | payer BC, SELFPAY ==
--- NOTE | 2020-02-11 09:30 | US_ITS ---
STUDY: ULTRASOUND BREAST - LEFT REASON FOR EXAM: Female, 39 years old. Left axillary pain. TECHNIQUE: Axial and longitudinal images of the LEFT breast were performed with a high resolution ultrasound transducer. # OF IMAGES: 108 COMPARISON: Comparison is made with prior mammogram done earlier today. FINDINGS: LEFT Breast: There is a 1 cm x 1.1 cm x 0.7 cm heterogeneous hypoechoic nodule at 1 o''clock position of the breast at 5 cm from the nipple. This corresponds to the mammographic findings. Internal vascularity is seen. A biopsy is recommended for further evaluation. This also evidence of a 1 cm x 0.5 cm x 0.5 cm benign-appearing lymph node as well as a 8 mm x 5 mm x 6 mm lymph node in the axilla. US/Breast Limited Unilateral IMPRESSION: The mammographic abnormality corresponds to a 1 cm x 1.1 cm x 0.7 cm hypoechoic heterogeneous soft tissue nodule at the 1 o''clock position of the breast at 5 cm from nipple with increased internal flow. A biopsy is recommended for further evaluation. ASSESSMENT CATEGORY: BIRADS Category 4: Suspicious - Biopsy Should Be Considered. A letter regarding these results will be sent to the patient by the facility within 30 days. Electronically Signed: Catracho Argueta, at 11:20 EDT , Service support ,
--- NOTE | 2020-02-11 09:30 | BI_ITS ---
MAMMOGRAPHY - BILATERAL DIAGNOSTIC REASON FOR EXAM: Female, 39 years old. Left axillary tenderness. PERTINENT HISTORY: Bilateral breast implants. TECHNIQUE: Digital bilateral breast rasta (3D mammographic acquisition) in the CC and MLO projections. 2-D mediolateral oblique (MLO) and craniocaudad (CC) views of both breasts were obtained. CAD: Full Field Digital Mammography with Computer Added Detection was performed. COMPARISON: None. Baseline examination. FINDINGS: Breast Composition: The breasts are heterogeneously dense, which may obscure small masses. There is a 1.2 cm x 0.9 cm nodule in the axillary region of the left breast. Correlation with ultrasound is recommended. Bilateral breast implants. Benign appearing bilateral axillary lymph nodes. No other significant abnormalities are identified. BI/DIAG MAMM W/CAD, BILAT IMPRESSION: 1.2 cm x 0.9 KENNY nodule in the axillary region of the left breast as described. Correlation with ultrasound is recommended. ASSESSMENT CATEGORY: BIRADS Category 0: Incomplete. Need additional imaging evaluation. A letter regarding these results will be sent to the patient by the facility within 30 days. Approximately 10% of breast cancers are not detected by mammography. A normal mammogram should not delay biopsy of a clinically suspicious abnormality. Electronically Signed: Catracho Argueta, at 11:58 EDT , Service support ,
[2020-07-25 10:03] VITALS: BMI 25.8
== END ==
PROVIDERS: Referring Provider Obstetrics & Gynecology; Visit Provider Obstetrics & Gynecology
DX: N63.21 Unspecified lump in the left breast, upper outer quadrant (principal)
CPT/HCPCS: 76642; 77062; 77066; G0279

== ENCOUNTER → 2020-02-17 11:02 | Outpatient (CLI) | payer BC, SELFPAY ==
[2020-02-16 15:16] VITALS: BMI 28.1
--- NOTE | 2020-02-17 11:04 | US_ITS ---
ULTRASOUND GUIDED CORE BIOPSY REASON FOR EXAM: Female, 39 years old. Lt breast mass PERTINENT HISTORY: Left breast nodule. COMPARISON: Comparison is made with prior mammogram and ultrasound of the left breast dated 02/11/2020. TECHNIQUE: (All elements of maximal sterile barrier technique followed, including US elements as applicable) Under direct sonographic guidance, the surgeon performed core biopsies of the hypoechoic nodule at the 1 o''clock position of the breast at 5 cm from the nipple. US/US Breast Biopsy 1st Lesion IMPRESSION: Ultrasound guided core biopsy of a mass in the LEFT breast at 1 o''clock position of the breast at 5 cm from the nipple without complication. Electronically Signed: Catracho Argueta, at 12:25 EDT , Service support ,
--- NOTE | 2020-02-17 11:30 | BRBX_PTH ---
PATIENT: MARK COON LOC: OPUS U#:[id number] AGE/SX: 45/F ROOM: RE02/17/[address]: Dr. Damir Shhaid MD : 1980 BED: DIS: SPEC #: [id number] RECD: 02/17/20 12:28 STATUS: HALINA KUMAR #: [id number] SHAMIKA: 02/17/20 11:[address]: Damir Shahid DEPT: SURGICAL PATHOLOGY RECD BY: Romie Doyle ENTERED: 02/17/20 13:44 SP TYPE: BREAST BX OTHR DR: No Primary Care Phys Tissues: Left breast, NOS Procedures: Surgery Specimen Level IV HEADER OPERATION: Left breast biopsy PRE-OP DIAGNOSIS: Left breast lesion at 1 o'clock TISSUE SUBMITTED: Left breast lesion at 1 o'clock ISCHEMIC TIME: 30 seconds FIXATION TIME: 8 hours MICROSCOPIC DIAGNOSIS Left breast at 1 o'clock, core biopsy: Fibroadenoma. AM:[facility] 02/18/20 MICROSCOPIC DESCRIPTION Slides are reviewed. GROSS DESCRIPTION Received in fixative is one container labeled with the patient name and designated left breast. The specimen consists of an elongated fragment of yellow soft tissue measuring 1.5 cm in length and 0.1 cm in diameter. The entire specimen is submitted in one cassette. / SJ:[facility] 02/17/20 TC:5 CPT: 10032
--- NOTE | 2020-02-17 11:52 | BI_ITS ---
MAMMOGRAPHY - UNILATERAL DIAGNOSTIC: LEFT BREAST REASON FOR EXAM: Female, 39 years old. Post biopsy images for clip placement. PERTINENT HISTORY: Left axillary ultrasound guided biopsy. TECHNIQUE: Digital unilateral breast rasta (3D mammographic acquisition) in the CC and MLO projections. 2-D mediolateral oblique (MLO) and craniocaudad (CC) views of both breasts were obtained. CAD: Full Field Digital Mammography with Computer Added Detection was performed. COMPARISON: Comparison is made with prior mammogram dated 02/11/2020. FINDINGS: Breast Composition: The breasts are heterogeneously dense, which may obscure small masses. A tissue clip marker is seen in the upper deep lateral portion of the left breast. Breast implant is unchanged. No other significant abnormalities are identified. BI/DIAG MAMM W/CAD, UNILAT IMPRESSION: Status post ultrasound-guided left breast biopsy with a tissue clip marker seen in the upper deep lateral portion of the left breast. ASSESSMENT CATEGORY: BIRADS Category 2: Benign. A letter regarding these results will be sent to the patient by the facility within 30 days. Approximately 10% of breast cancers are not detected by mammography. A normal mammogram should not delay biopsy of a clinically suspicious abnormality. Electronically Signed: Catracho Argueta, at 13:06 EDT , Service support ,
--- NOTE | 2020-02-17 12:44 | PCM.OPRPT ---
Problem List (1) Abnormal mammogram of left breast Status: Acute Report of Operation Date of Procedure: 02/17/20 Pre-Operative Diagnosis: Abnormal mammogram left breast Post-Operative Diagnosis: Same Surgery/Procedure Performed:: Ultrasound-guided needle core biopsy of abnormal mammogram left breast Type of Anesthesia:: Local Description of Procedure: Patient was brought in the ultrasound unit. Left breast was ultrasound at the 10 o'clock position. Lesion was identified. The breast was prepped with chlorhexidine. 1% lidocaine plain was injected. Small skin geni was made. Under ultrasound guidance local was directed down to the lesion. Under ultrasound guidance a single needle biopsy was obtained. Under ultrasound guidance a small titanium clip was placed. Sterile dressings were applied. The patient tolerated the procedure well. - Admit VTE Documentation VTE Present on Admission: No VTE Mechan Device Prophylaxis: None VTE Pharm Prophylaxis ordered?: No Reason prophylaxis not ordered:: Treatment Not Indicated [id number]: [id number] Bx breast 1st lesion us imag
== END ==
PROVIDERS: Referring Provider Surgery; Visit Provider Surgery
DX: D24.2 Benign neoplasm of left breast (principal)
CPT/HCPCS: 19083; 77065; 88305

== ENCOUNTER → 2020-07-11 15:56 | Outpatient (CLI) | payer BC, SELFPAY ==
[2020-07-11 15:07] VITALS: BMI 25.7
[2020-07-11 15:58] LABS: Mucous, Urine 0 SEEN /hpf (<or=2+); Red Blood Cells-Urine 0 SEEN /hpf (0-5); Squamous Epithelial Cells - UA 0 SEEN /hpf (5-10); White Blood Cells 0 SEEN /hpf (0-5)
[2020-07-11 16:53] LABS: Color, Urine Yellow (Yellow); Glucose, Dipstick Normal (Normal); Ketone-Dipstick Negative (Negative); Leukocyte Esterase-Dipstick Negative /ul (Negative); Nitrite-Dipstick Negative (Negative); Occult Blood-Urine Negative /ul (Negative); Protein-Dipstick Negative (Negative); Specific Gravity, Urine 1.015 (1.002-1.030); Urine Bilirubin Dipstick Negative (Negative); Urine Clarity Clear (Clear); Urine Urobilinogen Normal (Normal)
[2020-07-11 17:01] LABS: Erythrocyte Sedimentation Rate 2 mm/hr (0-30)
[2020-07-11 17:02] LABS: Absolute Lymphocyte Count 2.62 X10^3/uL (0.83-4.51); Absolute Neutrophil Count 4.3 X10^3/uL (2.0-7.7); Basophil# 0.03 X10^3/uL; Basophil% 0.4 % (0-1); Eosinophil# 0.06 X10^3/uL; Eosinophils% 0.8 % (0-5); Hematocrit 39.8 % (37-47); Hemoglobin 13.1 g/dL (12.0-15.0); Lymphocyte # 2.62 X10^3/ul (4.0); Lymphocyte % 35.2 % (19-41); Mean Corp Hgb Conc 32.9 g/dL (32-36); Mean Corpuscular Hgb 31.8 pg (27.0-32.0); Mean Corpuscular Volume 96.6 fL (81-99); Mean Platelet Vol. 10.4 fl (6.2-12.0); Monocyte# 0.42 X10^3/uL; Monocyte% 5.6 % (0-10); NRBC Flagged by Analyzer 0 % (0-5); Neutrophil # 4.31 X10^3/uL (2.7-7.7); Neutrophil % 57.9 % (47-70); Platelet Count 270 K/mm3 (150-450); RBC Distribution Width CV 12.1 % (11.6-14.6); RBC Distribution Width SD 42.7 fl (35.1-43.9); Red Blood Count 4.12 M/mm3 (4.2-5.4); White Blood Count 7.5 K/mm3 (4.4-11.0)
[2020-07-11 17:08] LABS: ALB/GLOB Ratio 1.3 RATIO (0.9-2.4); AST(SGOT) 13 U/L (15-37); Alanine Aminotransfer ALT/SGPT 21 U/L (13-56); Albumin, Serum 4.1 g/dL (3.2-5.0); Alkaline Phosphatase 57 U/L (45-117); Anion Gap 5 (5-15); BUN 19 mg/dL (7-18); BUN/Creat Ratio 16.4 RATIO (10-20); Calcium,Total 8.9 mg/dL (8.5-10.1); Chloride 105 mmol/L (98-107); Creatinine, Serum 1.16 mg/dL (0.55-1.02); EST Glomerular Filtration Rate 54 mL/min (>60); Est Glom Filt Rate - Afr Amer 66 mL/min (>60); Globulin 3.1 g/dL (2.2-4.2); Glucose 92 mg/dL (74-106); Potassium 3.7 mmol/L (3.5-5.1); Protein, Total 7.2 g/dL (6.4-8.2); Rheumatoid Factor < 10.0 IU/mL (<15); Sodium Level 138 mmol/L (136-145)
[2020-07-11 17:09] LABS: Bacteria RARE /hpf (None Seen)
[2020-07-13 15:47] LABS: ANTINUCLEAR ANTIBODIES DIRECT Negative (Negative)
== END ==
PROVIDERS: PCP Internal Medicine; Referring Provider Internal Medicine; Visit Provider Internal Medicine
DX: R35.0 Frequency of micturition (principal); M19.90 Unspecified osteoarthritis, unspecified site; F41.9 Anxiety disorder, unspecified; F32.9 Major depressive disorder, single episode, unspecified
CPT/HCPCS: 36415; 80053; 81001; 85025; 85652; 86038; 86225; 86235; 86431

== ENCOUNTER → 2020-07-25 | Outpatient (CLI) | payer BC, SELFPAY ==
[2020-07-25 10:03] VITALS: BMI 25.8
== END | disposition home or self-care (01) ==
LOC: LABSPEC 16:51
PROVIDERS: PCP Internal Medicine; Referring Provider Obstetrics & Gynecology; Visit Provider Obstetrics & Gynecology
DX: R30.0 Dysuria (principal)
CPT/HCPCS: 87086; 87088

== ENCOUNTER → 2020-07-31 14:02 | Outpatient (CLI) | payer BC, SELFPAY ==
[2020-07-25 10:03] VITALS: BMI 25.8
--- NOTE | 2020-07-31 14:04 | US_ITS ---
STUDY: ULTRASOUND OF THE FEMALE PELVIS - COMPLETE REASON FOR EXAM: Female, 40 years old. PELVIC CONGESTION LMP: 07/23/2020. TECHNIQUE: Transabdominal and Transvaginal TECHNICAL QUALITY: Adequate. COMPARISON: None. FINDINGS: The uterus is anteverted and is tilted to the right side of the pelvis. The uterus measures 9.2 cm x 5.1 cm x 4.1 cm. Normal uterine cervix. The endometrium measures 8 mm in thickness, and is hyperechoic. There is no demonstrated endometrial mass. The myometrium is of heterogeneous echotexture suggestive of fibroid changes although no discrete fibroid is seen. I.U.D. - The patient does not have an I.U.D. The right ovary is visualized. The right ovary measures 3.6 cm x 3.4 cm x 2.3 cm. Multiple follicles are seen in the right ovary. There is no visualized right adnexal mass or complex lesion. There is normal arterial and normal venous vascularity. The left ovary is visualized. The left ovary measures 3.4 cm x 3.8 cm x 2.3 cm. There is evidence of a 3.7 cm x 3.4 cm x 2.9 cm left ovarian cyst. There is no visualized left adnexal mass or complex lesion. There is normal arterial and normal venous vascularity. There is no fluid in the cul-de-sac. The pre void volume of the bladder was 236 ml. US/Pelvic (Non ) IMPRESSION: 3.7 cm x 3.4 cm x 2.9 cm left ovarian cyst. Heterogeneous appearance of the myometrium in keeping with fibroid change. Electronically Signed: Catracho Argueta MD at 16:01 EST , Service support ,
--- NOTE | 2020-07-31 14:04 | US_ITS ---
STUDY: ULTRASOUND OF THE FEMALE PELVIS - COMPLETE REASON FOR EXAM: Female, 40 years old. PELVIC CONGESTION LMP: 07/23/2020. TECHNIQUE: Transabdominal and Transvaginal TECHNICAL QUALITY: Adequate. COMPARISON: None. FINDINGS: The uterus is anteverted and is tilted to the right side of the pelvis. The uterus measures 9.2 cm x 5.1 cm x 4.1 cm. Normal uterine cervix. The endometrium measures 8 mm in thickness, and is hyperechoic. There is no demonstrated endometrial mass. The myometrium is of heterogeneous echotexture suggestive of fibroid changes although no discrete fibroid is seen. I.U.D. - The patient does not have an I.U.D. The right ovary is visualized. The right ovary measures 3.6 cm x 3.4 cm x 2.3 cm. Multiple follicles are seen in the right ovary. There is no visualized right adnexal mass or complex lesion. There is normal arterial and normal venous vascularity. The left ovary is visualized. The left ovary measures 3.4 cm x 3.8 cm x 2.3 cm. There is evidence of a 3.7 cm x 3.4 cm x 2.9 cm left ovarian cyst. There is no visualized left adnexal mass or complex lesion. There is normal arterial and normal venous vascularity. There is no fluid in the cul-de-sac. The pre void volume of the bladder was 236 ml. US/Transvaginal Non- IMPRESSION: 3.7 cm x 3.4 cm x 2.9 cm left ovarian cyst. Heterogeneous appearance of the myometrium in keeping with fibroid change. Electronically Signed: Catracho Argueta MD at 16:01 EST , Service support ,
== END ==
LOC: US 14:03
PROVIDERS: PCP Internal Medicine; Referring Provider Obstetrics & Gynecology; Visit Provider Obstetrics & Gynecology
DX: N94.89 Other specified conditions associated with female genital organs and menstrual cycle (principal)
CPT/HCPCS: 76830; 76856

== ENCOUNTER 2020-12-22 17:15 | Emergency (ER) | payer BC, SELFPAY ==
[2020-12-22 17:16] VITALS: BP 118/74; PULSE 91; RESP 18; TEMP 36.8; O2SAT 96; BMI 25.0
[2020-12-22 20:25] LABS: Internal QC Validated? YES +Cl - CLEAR BKGD; Pregnancy, Serum, hCG Quali. NEGATIVE Negative
--- NOTE | 2020-12-22 21:07 | ED.VIS.FEGU ---
HPI HPI - Female History of Present Illness Chief Complaint: Female C/O Detail of Chief Complaint: Painful menstrual cramps Informant: patient Pain Pain: Positive for Pelvic Pain and Vaginal Pain Onset: Days (Past 3 days) Context: Sudden Onset Timing: Continuous Quality: Positive for Cramping Current Severity: Mild Maximum Severity: Severe Worsened by: - (Nothing specific) Relieved by: - (Supine position) Bleeding Issue: Positive for Vaginal bleeding; Negative for Passing clots and Passing tissue Onset: Days (Past 3 days) Context: Sudden Onset Timing: Continuous Current Severity: Heavy Severity: Moderate Maximum Severity: Heavy Associated Symptoms Associated Symptoms: Negative for Dysuria, Frequency, Urgency and Hematuria Test: Positive and Negative Sexually: Positive for Active Narrative Narrative: Patient is a 40-year-old woman status post bilateral tubal ligation 2002. She is on control pills for menstrual cramps. She states this period is much more painful and she had increased blood flow. Menses started when it normally would have. She denies symptoms of . She denies history of endometriosis. She does have history ovarian cysts with rupture. She denies orthostatic symptoms. She denies bruising easily. She is on no new medications. She is on no herbal supplements Prior similar symptoms: Yes Recent Illness/Hospitalization: No PFSH [facility] Medical History (Updated 12/22/20 @ 22:[address] Home Lawson MD) Alcohol use disorder, severe, in early remission Anxiety Depression Fibroadenoma of left breast Generalized anxiety disorder History of alcohol abuse history of bladder infection/ UTI Major depressive disorder, recurrent severe without psychotic features Home Medications buspirone 30 mg PO BID 12/31/19 [History Last Taken Unknown] desogestrel 0.15 mg-ethinyl estradiol 0.03 mg tablet 1 tablet PO QDAY #84 tablet 09/25/20 [Rx Last Taken Unknown] Allergy/AdvReac Type Severity Reaction Status Date / Time No Known Allergies Allergy Verified 12/22/20 17:18 Family History Father Diabetes Mother Cancer lung Grandfather Heart disease Myocardial infarction, Onset Age: 60 Other Alcoholism Anxiety Arthritis Asthma Depressed Mental disorder Psychiatric care Severe allergy Thyroid disorder Surgical History History of breast augmentation (~2018) History of left breast biopsy (~02/17/20) History of tubal ligation Social History Smoking Status: Former smoker alcohol intake: former year quit: 2019 substance use type: does not use caffeine: Yes what type of physical activity do you participate in: walking frequency: daily seatbelt use: always do you feel safe at home: Yes additional social history: [employer] 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 ROS ED Constitutional Constitutional ED: Denies chills, fever(s) or subjective Eyes Eyes: Denies blurry vision or change in vision ENT ENT ED: Denies ear pain, rhinorrhea or sore throat Cardiovascular Cardiovascular: Denies chest pain, palpitations or racing heartbeat Respiratory/Chest Respiratory/Chest: Denies cough, dyspnea or dyspnea on exertion Gastrointestinal Gastrointestinal: Reports abdominal pain; Denies diarrhea, nausea or vomiting Genitourinary Genitourinary ED: Reports vaginal bleeding; Denies dysuria, hematuria or urinary frequency Musculoskeletal Musculoskeletal: Denies arthralgias, myalgias or neck pain Integumentary Denies rash Neurologic Neurologic: Denies headache(s) or weakness Endocrine Endocrinology: Denies polydipsia, polyphagia or polyuria Hematologic/Lymphatic Hematologic/Lymphatic: Denies easy bleeding or easy bruising EXAM Physical Exam Const Vital Signs: 12/22/20 17:16 Temperature 98.2 F Temperature Source Temporal Pulse Rate 91 Respiratory Rate 18 Blood Pressure 118/74 Blood Pressure Mean 88 Pulse Ox 96 Oxygen Delivery Method Room Air Negative for well nourished or well developed General Appearance ED: Negative for well developed HEENT Reports moist mucous membranes HEENT Narrative: Patient is symmetric. Nares patent. Negative for trauma or tenderness Eyes PERRL and EOMs intact bilaterally General Eye ED: Negative for pale conjunctiva or scleral icterus Neck no lymphadenopathy, supple and no JVD Chest Wall inspection of chest normal Resp normal respiratory effort and clear to auscultation bilaterally Cardio regular rate, regular rhythm, S1 normal heart sound, no murmurs and no JVD GI normal to inspection, nondistended, normoactive bowel sounds, soft to palpation and non-distended; Negative for non-tender Palpation: other Other Details: Suprapubic discomfort external exam normal, appearance of the vagina normal, appearance of the cervix normal, bimanual exam normal and no adnexal masses; Negative for adnexae non-tender Narrative: There is scant amount of blood noted. Patient commented that the bleeding has slowed down significantly. External Female Exam: normal appearance of the urethra Speculum Exam - Vagina: vaginal bleeding Speculum Exam - Cervix: cervical os closed and cervical bleeding Bimanual Exam - Vag & Uterus: normal bimanual exam, normal vaginal palpation, normal cervical palpation, bladder normal to palpation, uterine size normal, uterine shape normal, uterine mobility normal, uterine consistency normal and uterus tender; Negative for cervical motion tenderness Bimanual Exam - Adnexa, Other: normal adnexae and adexal tenderness; Negative for adexal mass, cul-de-sac fullness or cul-de-sac tenderness Back/Spine no CVA tenderness Extremity normal to inspection and full ROM Neuro oriented x3 and CN's II-XII intact bilaterally Sensorium / Orientation: alert Motor Exam: strength 5/5 throughout Psych mental status grossly normal Skin no rashes or lesions noted MDM MDM MDM Narrative Medical decision making narrative: test was obtained. This may represent painful menstrual periods. Will obtain CBC to assess H&H. Pelvic exam was performed and is remarkable only for discomfort. Since she is not she was treated with IV Toradol and will be reassessed in 30 minutes. Patient was assessed and at 2245. She was made aware of reason for delay. She states she feels markedly better after IV Toradol. Plan is to discharge to home. Impression is dysmenorrhea Lab Data Labs: Laboratory Results - last 24 hr 12/22/20 19:42 Serum , Qual NEGATIVE Discharge Plan Triage Chief Complaint: Female C/O ED Provider: Home Lawson Dx/Rx/DC Orders Clinical Impression: Dysmenorrhea Instructions: ED MENSTRUAL CRAMPING Prescriptions: No Action desogestrel-ethinyl estradiol [Apri] 0.15-0.03 mg tablet 1 tablet PO QDAY Qty: 84 RF: 4 buspirone 5 MG tablet 30 mg PO BID RF: 0 Primary Care Provider: Care Physician,No Primary Referrals: Luisana Kuo MD [STAFF PHYSICIAN] - 3-5 Days if not improving Care Physician,No Primary [Primary Care Provider] - Disposition Disposition: Home, Self Care
[2020-12-22] MEDS: Ketorolac 15 MG/ML Vial IV (21:33)
== END 2020-12-22 23:02 | disposition home or self-care (01) ==
PROVIDERS: Emergency Provider Emergency Medicine
DX: N94.6 Dysmenorrhea, unspecified (principal); F41.1 Generalized anxiety disorder; Z87.440 Personal history of urinary (tract) infections; Z87.891 Personal history of nicotine dependence
CPT/HCPCS: 84703; 96374; 99282; A4216

== ENCOUNTER → 2021-01-02 13:50 | Outpatient (CLI) | payer BC, SELFPAY ==
[2020-12-29 09:31] VITALS: BMI 25.0
--- NOTE | 2021-01-02 13:53 | US_ITS ---
STUDY: ULTRASOUND OF THE FEMALE PELVIS - COMPLETE REASON FOR EXAM: Female, 40 years old. Pelvic pain LMP: 12/25/2020. TECHNIQUE: Transabdominal and Transvaginal TECHNICAL QUALITY: Adequate. COMPARISON: Comparison is made with prior study dated 07/31/2020. FINDINGS: The uterus is anteverted and is in a midline position. The uterus measures 9.6 cm x 5.4 cm x 4.3 cm. There is a Nabothian cyst of the cervix. The endometrium measures 7.2 mm in thickness, and is heterogeneous (striated). There is no demonstrated endometrial mass. There is a 1.1 cm x 1.1 cm x 0.8 cm fibroid. I.U.D. - The patient does not have an I.U.D. The right ovary is visualized. The right ovary measures 4.2 cm x 1.9 cm x 1.9 cm. Dominant follicles are seen in the right ovary. The largest measures 1.9 cm x 1.7 cm x 1.4 cm. There is no visualized right adnexal mass or complex lesion. There is normal arterial and normal venous vascularity. The left ovary is visualized. The left ovary measures 3.4 cm x 3 cm x 2.5 cm. There is a 3.6 cm x 4.1 cm x 3.1 cm left ovarian cyst. This is essentially unchanged. There is no visualized left adnexal mass or complex lesion. There is normal arterial and normal venous vascularity. There is no fluid in the cul-de-sac. The pre void volume of the bladder was 185 ml. US/Pelvic (Non ) IMPRESSION: Small uterine fibroid. Follicles in the right ovary. Stable left ovarian cyst. Electronically Signed: Catracho Argueta MD at 20:29 EDT , Service support ,
--- NOTE | 2021-01-02 13:53 | US_ITS ---
STUDY: ULTRASOUND OF THE FEMALE PELVIS - COMPLETE REASON FOR EXAM: Female, 40 years old. Pelvic pain LMP: 12/25/2020. TECHNIQUE: Transabdominal and Transvaginal TECHNICAL QUALITY: Adequate. COMPARISON: Comparison is made with prior study dated 07/31/2020. FINDINGS: The uterus is anteverted and is in a midline position. The uterus measures 9.6 cm x 5.4 cm x 4.3 cm. There is a Nabothian cyst of the cervix. The endometrium measures 7.2 mm in thickness, and is heterogeneous (striated). There is no demonstrated endometrial mass. There is a 1.1 cm x 1.1 cm x 0.8 cm fibroid. I.U.D. - The patient does not have an I.U.D. The right ovary is visualized. The right ovary measures 4.2 cm x 1.9 cm x 1.9 cm. Dominant follicles are seen in the right ovary. The largest measures 1.9 cm x 1.7 cm x 1.4 cm. There is no visualized right adnexal mass or complex lesion. There is normal arterial and normal venous vascularity. The left ovary is visualized. The left ovary measures 3.4 cm x 3 cm x 2.5 cm. There is a 3.6 cm x 4.1 cm x 3.1 cm left ovarian cyst. This is essentially unchanged. There is no visualized left adnexal mass or complex lesion. There is normal arterial and normal venous vascularity. There is no fluid in the cul-de-sac. The pre void volume of the bladder was 185 ml. US/Transvaginal Non- IMPRESSION: Small uterine fibroid. Follicles in the right ovary. Stable left ovarian cyst. Electronically Signed: Catracho Argueta MD at 20:29 EDT , Service support ,
== END ==
LOC: US 13:51
PROVIDERS: Referring Provider Obstetrics & Gynecology; Visit Provider Obstetrics & Gynecology
DX: N88.8 Other specified noninflammatory disorders of cervix uteri (principal); N83.202 Unspecified ovarian cyst, left side; D25.9 Leiomyoma of uterus, unspecified
CPT/HCPCS: 76830; 76856; 93976

== ENCOUNTER → 2021-02-28 09:02 | Outpatient (CLI) | payer BC, SELFPAY ==
--- NOTE | 2021-02-28 09:04 | US_ITS ---
STUDY: ULTRASOUND BREAST - LEFT REASON FOR EXAM: Female, 40 years old. Palpable lump left breast. TECHNIQUE: Axial and longitudinal images of the LEFT breast were performed with a high resolution ultrasound transducer. # OF IMAGES: 12 COMPARISON: Comparison is made with prior mammogram done earlier today as well as prior sonogram of the left breast dated 02/11/2020. FINDINGS: LEFT Breast: The palpable abnormality corresponds to a 5 mm x 5 mm x 3 mm cyst at the 1 o''clock position of the breast at 3 cm from the nipple. US/Breast Limited Unilateral IMPRESSION: The palpable abnormality corresponds to a 5 mm x 5 mm x 3 mm cyst at the 1 o''clock position of the breast at 3 cm from the nipple. ASSESSMENT CATEGORY: BIRADS Category 2: Benign. A letter regarding these results will be sent to the patient by the facility within 30 days. Electronically Signed: Cartacho Argueta MD at 10:38 EDT , Service support ,
--- NOTE | 2021-02-28 09:04 | BI_ITS ---
MAMMOGRAPHY - BILATERAL DIAGNOSTIC REASON FOR EXAM: Female, 40 years old. Left breast lump. PERTINENT HISTORY: Non-contributory. Bilateral breast implants. Prior left ultrasound guided breast biopsy. TECHNIQUE: Digital bilateral breast rasta (3D mammographic acquisition) in the CC and MLO projections. 2-D mediolateral oblique (MLO) and craniocaudad (CC) views of both breasts were obtained. CAD: Full Field Digital Mammography with Computer Added Detection was performed. COMPARISON: Comparison is made with prior study 02/03/2020 and 02/17/2020. FINDINGS: Breast Composition: The breasts are heterogeneously dense, which may obscure small masses. A tissue clip marker is seen within a 1.3 cm x 1 cm nodule in the deep axillary region of the left breast. Stable appearance of the bilateral breast implants. No other significant abnormalities are identified. There has been no significant change since the prior study. BI/DIAG MAMM W/CAD, BILAT IMPRESSION: Stable bilateral diagnostic mammogram. One year follow-up recommended. (A) ASSESSMENT CATEGORY: BIRADS Category 2: Benign. A letter regarding these results will be sent to the patient by the facility within 30 days. Approximately 10% of breast cancers are not detected by mammography. A normal mammogram should not delay biopsy of a clinically suspicious abnormality. Electronically Signed: Catracho Argueta MD at 10:22 EDT , Service support ,
== END ==
PROVIDERS: Referring Provider Obstetrics & Gynecology; Visit Provider Obstetrics & Gynecology
DX: N63.21 Unspecified lump in the left breast, upper outer quadrant (principal)
CPT/HCPCS: 76642; 77062; 77066; G0279

== ENCOUNTER 2021-03-20 09:44 | Day surgery (SDC) | payer BC, SELFPAY ==
[2021-01-19 16:03] VITALS: BMI 25.0
[2021-03-19 10:23] LABS: Absolute Lymphocyte Count 2.18 X10^3/uL (0.83-4.51); Absolute Neutrophil Count 2.6 X10^3/uL (2.0-7.7); Basophil# 0.02 X10^3/uL; Basophil% 0.4 % (0-1); Eosinophil# 0.05 X10^3/uL; Hematocrit 41.6 % (37-47); Hemoglobin 13.4 g/dL (12.0-15.0); Lymphocyte # 2.18 X10^3/ul (0.83-4.51); Lymphocyte % 42.2 % (19-41); Mean Corp Hgb Conc 32.2 g/dL (32-36); Mean Corpuscular Hgb 32.8 pg (27.0-32.0); Mean Corpuscular Volume 101.7 fL (81-99); Mean Platelet Vol. 10.5 fl (6.2-12.0); Monocyte# 0.33 X10^3/uL; Monocyte% 6.4 % (0-10); NRBC Flagged by Analyzer 0 % (0-5); Neutrophil # 2.57 X10^3/uL (2.7-7.7); Neutrophil % 49.8 % (47-70); Platelet Count 265 K/mm3 (150-450); RBC Distribution Width CV 11.9 % (11.6-14.6); RBC Distribution Width SD 44.7 fl (35.1-43.9); Red Blood Count 4.09 M/mm3 (4.2-5.4); White Blood Count 5.2 K/mm3 (4.4-11.0)
[2021-03-19 10:31] LABS: Prothrombin Time (Protime)PT. 12.3 SECONDS (11.7-14.9)
[2021-03-19 10:32] LABS: Partial Thromboplast Time 33.6 Seconds (24.1-36.2)
[2021-03-19 10:54] LABS: AST(SGOT) 16 U/L (15-37); Alanine Aminotransfer ALT/SGPT 34 U/L (13-56); Albumin, Serum 3.6 g/dL (3.2-5.0); Alkaline Phosphatase 65 U/L (45-117); Bilirubin, Direct 0.11 mg/dL (0.00-0.30); Globulin 3.1 g/dL (2.2-4.2); Protein, Total 6.7 g/dL (6.4-8.2)
[2021-03-20] VITALS (12 sets, daily range): BP systolic 84–117; BP diastolic 43–75; PULSE 63–88; RESP 16–18; TEMP 36.2–37.7; O2SAT 95–100; BMI 20.2
--- NOTE | 2021-03-20 | HYST_PTH ---
PATIENT: MARK COON LOC: [facility] [place] U#:[id number] AGE/SX: 40/F ROOM: RE03/20/[address]: Dr. Luisana Kuo MD : 1980 BED: DIS: 03/20/2021 SPEC #: [id number] RECD: 03/20/21 14:23 STATUS: HALINA KUMAR #: [id number] SHAMIKA: 03/20/21 00:[address]: Luisana Kuo DEPT: SURGICAL PATHOLOGY RECD BY: Denis Stuart ENTERED: 03/21/21 09:57 SP TYPE: HYSTERECT OTHR DR: No Primary Care Phys Tissues: Uterus, NOS Procedures: Surgery Specimen Level V HEADER OPERATION: Vaginal hysterectomy, salpingectomy PRE-OP DIAGNOSIS: Dyspareunia, dysmenorrhea TISSUE SUBMITTED: Uterus, cervix and bilateral fallopian tubes MICROSCOPIC DIAGNOSIS Uterus, hysterectomy: Cervix ? nabothian cysts, squamous metaplasia and mild chronic inflammation. Endometrium ? secretory endometrium. Myometrium ? focal superficial adenomyosis. Right and left fallopian tubes ? hydrosalpinx. AM:mercy 03/22/2021 MICROSCOPIC DESCRIPTION Slides are reviewed. GROSS DESCRIPTION Received in fixative is one container labeled with the patient's name and designated uterus, cervix and bilateral fallopian tubes. The specimen consists of a hysterectomy specimen consisting of uterus with cervix and detached bilateral fallopian tubes. The uterus with cervix weighs 102 gm and measures 9.5 x 5.5 x 4.5 cm. The serosal surface is gracia, glistening. The ectocervical mucosa is unremarkable. The external os is circular in contour. The endocervical canal measures 3.5 cm in length and the endocervical mucosa is gracia, glistening and unremarkable. The triangular endometrial cavity measures 5 cm in length and 2.5 cm in width. The endometrium is gracia, glistening without any mass lesion and measures 0.5 cm in thickness. The myometrium measures 2 cm in average thickness. The fallopian tubes are not identified as right or left. One fallopian tube measures 4.5 cm in length and up to 2 cm in diameter. The fimbrial end is identified. Proximal portion of fallopian tube appears to be cystic. The cystic portion of fallopian tube do not show any papillation. The second fallopian tube is also similar appearance to first one and measures 4 cm in length and up to 1.5 cm in diameter. Portion adjacent to the fimbrial end appears to be cystic. No papillation is identified. No cyst contents are noted. Resident Doctor sections are submitted in ten cassettes as follows: 1 - anterior cervix, 2 - posterior cervix, 3 & 4 - anterior uterine wall, 5 & 6 - posterior uterine wall, 7 & 8 - one fallopian tube, 9 & 10 - second fallopian tubes. The fallopian tubes are submitted in entirety. / JORDAN:mercy 03/21/21 TC:5 CPT: 74188
--- NOTE | 2021-03-20 04:54 | PCM.HP.BLA ---
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 Is patient in pain?: No Allergies No Known Allergies Allergy (Verified 03/12/21 13:01) Medications buspirone 30 mg PO BID 12/31/19 [History Confirmed 03/12/21] desogestrel 0.15 mg-ethinyl estradiol 0.03 mg tablet 1 tablet PO QDAY #84 tablet 09/25/20 [Rx Confirmed 03/12/21] naproxen 500 mg tablet 500 mg PO BID #60 tab 12/29/20 [Rx Confirmed 03/12/21] Post menopausal: No Patient : No : No REPLACED BY [facility] Medical History Alcohol use disorder, severe, in early remission Anxiety Depression Fibroadenoma of left breast Generalized anxiety disorder History of alcohol abuse history of bladder infection/ UTI Major depressive disorder, recurrent severe without psychotic features Surgical History History of breast augmentation (~2017) History of left breast biopsy (~02/17/20) History of tubal ligation Family History Father Diabetes Mother Cancer lung Grandfather Heart disease Myocardial infarction, Onset Age: 60 Other Alcoholism Anxiety Arthritis Asthma Depressed Mental disorder Psychiatric care Severe allergy Thyroid disorder Social History Smoking Status: Former smoker alcohol intake: former year quit: 2019 substance use type: does not use caffeine: Yes what type of physical activity do you participate in: walking frequency: daily seatbelt use: always do you feel safe at home: Yes additional social history: Nancy Jackson Patient is a [facility] BS Details: MARK COON is a 40 year old who presents for preop hysterectomy planned for AUB. Female Reproductive History Menopausal Symptoms: No hot flashes, No night sweats, No difficulty concentrating and No change in libido Pregancy History 3 Elective abortions Hx Para 3 Spontaneous abortions Hx # Term Pregnancies Ectopic pregnancies Hx # Pregnancies Multiple births # of living children Past Pregnancies Del. Date Name GA/Weeks Outcome Route Bth Weight Gen [facility] F[facility] Unknown 1999 Jean live - full term Unknown 2001 Lucas live - full term Unknown 2002 Ubaldo live - full term ROS Const Constitutional: Reports fatigue; Denies chills, fever(s) or night sweats ENT ENT: Reports system reviewed and no additional complaints, except as documented Cardio Card: Denies chest pain Resp Resp: Denies cough or dyspnea GI GI: Reports as per HPI; Denies constipation, nausea or vomiting : Reports menorrhagia and pelvic pain; Denies hematuria, hot flashes, nipple discharge, urinary urgency, vaginal discharge, vaginal dryness, vaginal odor or vaginal pruritus Musc Musc: Denies arthralgias, back pain or muscle weakness Skin Skin/Breast: Denies alopecia, change in hair, dry skin, breast mass, breast pain, breast skin changes or nipple discharge Neuro Neuro: Reports system reviewed and no additional complaints, except as documented Psych Psych: Reports system reviewed and no additional complaints, except as documented; Denies change in libido or difficulty concentrating Endo Endo: Denies cold intolerance, excessive sweating, heat intolerance or polydipsia Tim/Lymph Hematologic/Lymphatic: Denies easy bleeding, Denies easy bruising and Denies lymphadenopathy Exam Const General: cooperative, healthy appearing, comfortable, well developed and well groomed Neck Neck: normal visual inspection and full ROM Chest Breast inspection: normal inspection of the breasts and normal inspection of the axillae Breast palpation: normal palpation of the axillae, no axillary lymphadenopathy and abnormal palpation of the breast left upper outer mass mobile and cystic; nontender Resp Effort & Inspection: normal respiratory effort, able to speak in complete sentences and symmetric chest movement Cardio Rate: regular rate Skin General: no rashes or lesions noted, elasticity normal and turgor normal Lesions: no lesions Rashes: no rashes Neuro General: patient alert, patient awake and patient oriented x3 Cranial Nerves: CN's II-XI intact bilaterally, PERRL and EOM intact bilaterally Cognition: normal cognition Speech: speech normal Gait: normal gait Extrem General: normal to inspection, full ROM and no pedal edema Psych Appearance: grossly normal Mental Status: mental status grossly normal Mood: congruent mood Affect: normal affect Speech and Movement: speech and movement normal Attitude: cooperative Thought Process: normal Thought Content: normal Coding Level of Care Code No Charge Diagnoses Dyspareunia Dysmenorrhea N94.6 Assessment and Plan Assessment and Plan (1) Dyspareunia: Status: Chronic Comment: enlarged uterus, suspect adenomyosis. (2) Dysmenorrhea: Status: Acute Comment: failed ocp x 2 Plan - Dr. Luisana Kuo MD: After discussing the patient's diagnosis and treatment plan options, patient wishes to proceed with surgical management. I have discussed with the patient the risks, benefits, and alternatives of the procedure which include but are not limited to risks of anesthesia, bleeding, infection, possible damage to bowel, bladder, or surrounding vasculature which could lead to additional surgery to evaluate any complications. Patient agrees to procedure and wishes to proceed. ACOG/uptodate references given for additional information regarding procedure. UPDATE- I have seen the patient and performed any clinically relevant updates to the history and physical exam. Luisana Kuo MD
[2021-03-20] MEDS: Lactated Ringers 1,000 ML 70 ML IV ×2 (07:00→16:20)
[2021-03-20 10:40] LABS: Bedside Glucose 98 mg/dL (70-110)
[2021-03-20 10:46] LABS: Internal QC Validated? YES +Cl - CLEAR BKGD; Pregnancy, Urine Negative Negative
[2021-03-20] MEDS: Lactated Ringers 1,000 ML 40 ML IV (10:59)
[2021-03-20] MEDS: Scopolamine 1mg/72hr Patch 1 PATCH TD (11:04)
[2021-03-20] MEDS: Enoxaparin 40 MG/0.4 ML Syringe SC (11:05)
[2021-03-20] MEDS: Gabapentin 600 MG Tablet PO (11:08)
[2021-03-20] MEDS: Acetaminophen 500 MG Tablet 1000 MG PO (11:08)
[2021-03-20] MEDS: Phenazopyridine 95 MG Tablet 190 MG PO (11:08)
[2021-03-20] MEDS: Celecoxib 200 MG Capsule 400 MG PO (11:09)
[2021-03-20] MEDS: dexAMETHasone 10 MG/ML Vial 8 MG IV (11:10)
[2021-03-20] MEDS: Cefazolin 2 GM in 0.9% Normal Saline 100 ML IV (11:56)
[2021-03-20] MEDS: Lubricating Jelly 60 GM Tube 30 GM TOPICAL (12:08)
[2021-03-20] MEDS: Vasopressin 20 UNITS/ML Vial (12:15)
[2021-03-20] MEDS: Ondansetron 4 MG/2 ML Vial IV (13:05)
--- NOTE | 2021-03-20 13:34 | OP.PCM_ITS ---
Problems Associated Problem List Diagnoses (1) Breast lump in female: (2) Dysmenorrhea: (3) Dyspareunia: Report of Operation Date of Procedure: 03/20/21 Pre-Operative Diagnosis: see problem list Post-Operative Diagnosis: same Surgery/Procedure Performed:: [facility] BS hydrotechnical specialist: Karina Silva Type of Anesthesia: General Special Medications: none Specimen's removed: uterus, tubes Drains: marinelli Estimated Blood Loss (mL): 100 Fluids Replaced: crystalloid Description of Procedure: Patient was taken to the operating room and was placed under general anesthesia was prepped and draped in normal sterile fashion in the dorsal lithotomy position. Preoperative antibiotics and SCDs and Marinelli catheter was placed inside the bladder. Weighted speculum was placed in the vagina and the anterior and posterior lip of the cervix was grasped with 2 Gale clamps and circumferentially injected with dilute vasopressin. A circumferential incision was made with a scalpel and the posterior cul-de-sac was entered into sharply and a longneck speculum was placed. The anterior cul-de-sac was also dissected down and entered into sharply and the uterosacral ligaments were clamped cut and suture ligated bilaterally followed by the cardinal ligaments which were Clamped cut and suture ligated bilaterally with 0 Monocryl. The uterus serially descended and progressive bites were taken bilaterally up to the level of the utero-ovarian ligament bilaterally which was clamped transected and double ligated with 0 Monocryl suture and 0 Vicryl free tie. Bilateral fallopian tubes and ovaries were well visualized and noted be within normal limits and the bilateral fallopian tubes were transected across the base with a Deepti clamp and removed and sutured with 0 Vicryl suture. Excellent hemostasis was noted. Posterior peritoneum was reapproximated with 2-0 Vicryl and a modified Quintana stitch was placed through the posterior vaginal cuff and bilateral uterosacral ligaments across the posterior cul-de-sac skimming along to provide apical support to the vagina. The vagina was closed with [id number] 0 Vicryl pop offs including the posterior and anterior peritoneum in the reapproximation. Excellent hemostasis was noted. All instruments removed from the vagina clear urine was noted at the end of the procedure and patient was awoken and taken recovery in stable condition. Grafts/Implants Used: none Complications none Admit VTE Documentation VTE Present on Admission: No VTE Mechan Device Prophylaxis: SCD's VTE Pharm Prophylaxis ordered?: Yes Multi Select Codes Urinary/Genital Urinary/Genital CPT Codes: 84544 [facility]+BS/O <250gr uterus
[2021-03-20] MEDS: Ketorolac 30 MG/ML Syringe IV (13:35)
--- NOTE | 2021-03-20 14:37 | EX.PCM.DISCH ---
Discharge Instructions Procedure Hysterectomy, Vaginal Diet Discharge Diet: No restrictions Activity Discharge Activity: Return to Normal Activity, May Not Drive (while taking narcotic pain medications.) and May Shower May resume sexual activity in: 6-8 weeks Dressing / Incision Call your doctor if your incision/area has: Continuous Slow Oozing, Sudden Increased Bleeding, Increased Pain/ Swelling, Increased Redness and Foul Smelling Discharge Call your doctor if you observe: Fever of 101 or Higher, Inability to urinate, Inability to have a bowel movement and Using more than 1 pad per hour Follow Up Care Please Follow Up With: Luisana Kuo MD Test Results: Test results from this visit will be discussed in further detail at your follow-up appointment, if applicable. Discharge Plan Admission Primary Reason for Your Visit: hysterectomy Attending Provider: Luisana Kuo Primary Care Provider: Care PhysicianClau Primary Discharge Orders/Prescriptions Prescriptions: New oxycodone-acetaminophen [Endocet] 5-325 mg tablet 1 tab PO Q4H PRN (Reason: pain) 7 Days Qty: 20 RF: 0 ibuprofen [ibuprofen] 600 MG tablet 600 mg PO Q6H PRN PRN (Reason: Pain) Qty: 30 RF: 0 Continued desvenlafaxine succinate [Pristiq] 50 mg Tablet Extended Release 24 Hr 50 mg PO DAILY RF: 0 naproxen 500 mg tablet 500 mg PO BID PRN (Reason: Pain) RF: 0 Referrals / Follow Up: Care PhysicianClau Primary [Primary Care Provider] - Disposition Disposition (needs filled in before D/C Order can be placed): Home, Self Care
[2021-03-20] MEDS: oxyCODONE 5 MG Tablet PO (16:10)
[2021-03-20 16:44] LABS: Absolute Lymphocyte Count 0.69 X10^3/uL (0.83-4.51); Absolute Neutrophil Count 10.8 X10^3/uL (2.0-7.7); Basophil# 0.02 X10^3/uL; Basophil% 0.2 % (0-1); Hematocrit 34.9 % (37-47); Hemoglobin 11.7 g/dL (12.0-15.0); Lymphocyte # 0.69 X10^3/ul (0.83-4.51); Mean Corp Hgb Conc 33.5 g/dL (32-36); Mean Corpuscular Hgb 33.2 pg (27.0-32.0); Mean Corpuscular Volume 99.1 fL (81-99); Monocyte# 0.06 X10^3/uL; Monocyte% 0.5 % (0-10); NRBC Flagged by Analyzer 0 % (0-5); Neutrophil # 10.76 X10^3/uL (2.7-7.7); Neutrophil % 92.9 % (47-70); Platelet Count 227 K/mm3 (150-450); RBC Distribution Width CV 11.8 % (11.6-14.6); RBC Distribution Width SD 42.7 fl (35.1-43.9); Red Blood Count 3.52 M/mm3 (4.2-5.4); White Blood Count 11.6 K/mm3 (4.4-11.0)
== END 2021-03-20 17:47 | disposition home or self-care (01) ==
LOC: SDC 09:46 → AC 09:46
PROVIDERS: Anesthesiology; Referring Provider Obstetrics & Gynecology; Visit Provider Obstetrics & Gynecology
PROC: (CPT 58260; principal; 2021-03-20 11:20)
DX: N80.0 Endometriosis of uterus (principal); N70.11 Chronic salpingitis; N88.8 Other specified noninflammatory disorders of cervix uteri; N87.9 Dysplasia of cervix uteri, unspecified; N72 Inflammatory disease of cervix uteri; Z20.822 Contact with and (suspected) exposure to COVID-19; F32.A Depression, unspecified; F41.1 Generalized anxiety disorder; Z79.899 Other long term (current) drug therapy; Z87.891 Personal history of nicotine dependence
CPT/HCPCS: 00944; 58262; 36415; 80076; 81025; 82962; 83735; 85025; 85610; 85730; 86850; 86900; 86901; 87426; 88307; C9803; J7120; J2405; J3475

== ENCOUNTER → 2021-11-05 | Outpatient (CLI) | payer BC, SELFPAY ==
--- NOTE | 2021-11-05 15:15 | US_ITS ---
STUDY: ULTRASOUND OF THE FEMALE PELVIS - COMPLETE REASON FOR EXAM: Female, 41 years old. pelvic pain TECHNIQUE: Endovaginal. Transvaginal US was obtained to better visualized the ovaries. COMPARISON: None. FINDINGS: The uterus is surgically absent. The right ovary is visualized. The right ovary measures 2.6 x 2.2 cm. There is no right ovarian cyst or ovarian mass. There is no visualized right adnexal mass or complex lesion. There is normal arterial and normal venous vascularity. The left ovary is visualized. The left ovary measures 5 x 4.9 cm. There is 4.4 x 4.1 cm left ovarian hemorrhagic cyst . No follow-up required. There is no visualized left adnexal mass or complex lesion. There is normal arterial and normal venous vascularity. There is no fluid in the cul-de-sac. Urinary bladder volume is 25 cc. US/Transvaginal Non- IMPRESSION: There are no acute findings Electronically Signed: Bertram Arcos MD at 17:02 EDT ,
--- NOTE | 2021-11-05 15:15 | US_ITS ---
STUDY: ULTRASOUND OF THE FEMALE PELVIS - COMPLETE REASON FOR EXAM: Female, 41 years old. pelvic pain TECHNIQUE: Endovaginal. Transvaginal US was obtained to better visualized the ovaries. COMPARISON: None. FINDINGS: The uterus is surgically absent. The right ovary is visualized. The right ovary measures 2.6 x 2.2 cm. There is no right ovarian cyst or ovarian mass. There is no visualized right adnexal mass or complex lesion. There is normal arterial and normal venous vascularity. The left ovary is visualized. The left ovary measures 5 x 4.9 cm. There is 4.4 x 4.1 cm left ovarian hemorrhagic cyst . No follow-up required. There is no visualized left adnexal mass or complex lesion. There is normal arterial and normal venous vascularity. There is no fluid in the cul-de-sac. Urinary bladder volume is 25 cc. US/Pelvic (Non ) IMPRESSION: There are no acute findings Electronically Signed: Bertram Arcos MD at 17:02 EDT ,
== END | disposition home or self-care (01) ==
LOC: US 15:13
PROVIDERS: Visit Provider Obstetrics & Gynecology
DX: R10.2 Pelvic and perineal pain (principal)
CPT/HCPCS: 76830; 76856

== ENCOUNTER → 2021-11-06 | Outpatient (CLI) | payer BC, SELFPAY | END | disposition home or self-care (01) | LOC: LABSPEC 13:20 | PROVIDERS: Referring Provider Obstetrics & Gynecology; Visit Provider Obstetrics & Gynecology | DX: R10.2 Pelvic and perineal pain (principal) | CPT/HCPCS: 87086; 87088 ==

== ENCOUNTER → 2022-07-04 | Outpatient (CLI) | payer BC, SELFPAY ==
--- NOTE | 2022-07-04 13:54 | BI_ITS ---
MAMMOGRAPHY - BILATERAL SCREENING REASON FOR EXAM: Female, 42 years old. Routine annual screening examination. PERTINENT HISTORY: Non-contributory. Bilateral breast implants. TECHNIQUE: Digital bilateral breast william (3D mammographic acquisition) in the CC and MLO projections. 2-D mediolateral oblique (MLO) and craniocaudad (CC) views of both breasts were obtained. CAD: Full Field Digital Mammography with Computer Added Detection was performed. COMPARISON: Comparison is made with prior study dated 02/28/2021 and 02/11/2020. FINDINGS: Breast Composition: The breasts are heterogeneously dense, which may obscure small masses. There are no dominant masses or suspicious calcifications. Once again, a tissue clip marker is seen in the axillary region of the left breast within a 1.3 cm x 1 cm nodule. Stable appearance of the bilateral breast implants. No other significant abnormalities are identified. There has been no significant change since the prior study. BI/SCRN MAMM (CAD)W/WILLIAM BILAT IMPRESSION: Stable bilateral screening mammogram. Yearly follow-up mammogram recommended. (A) ASSESSMENT CATEGORY: BIRADS Category 2: Benign. A letter regarding these results will be sent to the patient by the facility within 30 days. Approximately 10% of breast cancers are not detected by mammography. A normal mammogram should not delay biopsy of a clinically suspicious abnormality. [id number] Electronically Signed: Catracho Argueta MD at 14:48 EST ,
== END | disposition home or self-care (01) ==
PROVIDERS: PCP Physician Assistant; Visit Provider Physician Assistant
DX: Z12.31 Encounter for screening mammogram for malignant neoplasm of breast (principal); Z98.82 Breast implant status
CPT/HCPCS: 77063; 77067

== ENCOUNTER 2023-09-11 14:56 | Inpatient (IN) | payer BC, SELFPAY ==
[2023-09-11 14:57] VITALS: BP 116/85; PULSE 67; RESP 14; TEMP 36.6; O2SAT 95; BMI 20.7
--- NOTE | 2023-09-11 15:24 | EDS_ITS ---
HPI <CLAY Acosta - Last Filed: 09/11/23 19:05> History of Present Illness Chief Complaint: Substance Abuse Narrative Narrative: 43-year-old female presents for alcohol detox. She states she was 500 days sober and then a couple months ago started drinking occasionally. She has been stressed due to issues with her . She has 3 adult children and 2 of them 1 at home. Today she started drinking more heavily and decided she needed help. She has anywhere from 4 shots of vodka a day to 1/5 of the bottle. Last drink was a couple hours ago. She denies history of withdrawal seizures or DTs. She states she is detoxed in the past that we will be and somewhere else in [place]. She denies other drug use. She is on medication for depression. She is not suicidal or homicidal. [facility] <CLAY Acosta - Last Filed: 09/11/23 19:05> [facility] Medical History (Updated 09/11/23 @ 19:04 by Jolene Valencia) Alcohol use disorder, severe, in early remission Anxiety Depression Dysmenorrhea Dyspareunia Fibroadenoma of left breast Former smoker Generalized anxiety disorder History of alcohol abuse history of bladder infection/ UTI History of edema History of steroid therapy Major depressive disorder, recurrent severe without psychotic features Migraines Home Medications buspirone 15 mg tablet 15 mg PO BID 09/11/23 [History Last Taken Unknown] chlordiazepoxide HCl 25 mg capsule 25 mg PO DAILY 09/11/23 [History Last Taken Unknown] escitalopram oxalate 10 mg tablet 10 mg PO DAILY 09/11/23 [History Last Taken Unknown] naltrexone 50 mg tablet 50 mg PO DAILY 09/11/23 [History Last Taken Unknown] prazosin 2 mg capsule 2 mg PO QHS 09/11/23 [History Last Taken Unknown] trazodone 100 mg tablet 100 mg PO QHS 09/11/23 [History Last Taken Unknown] Allergy/AdvReac Type Severity Reaction Status Date / Time No Known Allergies Allergy Verified 04/30/22 13:14 Family History Father Diabetes Mother Cancer lung Grandfather Heart disease Myocardial infarction, Onset Age: 60 Other Alcoholism Anxiety Arthritis Asthma Depressed Mental disorder Psychiatric care Severe allergy Thyroid disorder Surgical History History of breast augmentation (~2018) History of left breast biopsy (~02/17/20) History of tubal ligation S/P vaginal hysterectomy Social History Smoking Status: Former smoker alcohol intake: former year quit: 2019 substance use type: does not use caffeine: Yes what type of physical activity do you participate in: walking frequency: daily seatbelt use: always do you feel safe at home: Yes additional social history: Nancy Jackson 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 CVS: Negative for chest pain. Respiratory: Negative for shortness of breath. GI: Negative for abdominal pain, nausea, vomiting. EXAM <CLAY Acosta - Last Filed: 09/11/23 19:05> Physical Exam Narrative Exam Narrative: CONST: Patient crying but in no acute distress. EYES: Normal inspection. NECK: Normal inspection. RESP: No respiratory distress, CTAB. CVS: Regular rate and rhythm, no murmur, no gallop. SKIN: Color normal, no rash, warm, dry, intact. EXTREMITIES: Normal appearance, no pedal edema. NEURO: Oriented x4. PSYCH: Normal affect. Const Vital Signs: 09/11/23 14:57 09/11/23 15:56 09/11/23 17:00 Temperature 97.8 F Temperature Source Temporal Pulse Rate 67 16 L 64 Respiratory Rate 14 16 16 Blood Pressure 116/85 H 98/59 L 91/79 Blood Pressure Mean 95 72 83 Pulse Ox 95 99 98 Oxygen Delivery Method Room Air Room Air Room Air <Dr. Home Lawson MD - Last Filed: 09/11/23 17:40> Physical Exam Const Vital Signs: 09/11/23 14:57 09/11/23 15:56 09/11/23 17:00 Temperature 97.8 F Temperature Source Temporal Pulse Rate 67 16 L 64 Respiratory Rate 14 16 16 Blood Pressure 116/85 H 98/59 L 91/79 Blood Pressure Mean 95 72 83 Pulse Ox 95 99 98 Oxygen Delivery Method Room Air Room Air Room Air MDM <CLAY Acosta - Last Filed: 09/11/23 19:05> [facility] Narrative Medical decision making narrative: Patient is here requesting alcohol detox. She drinks up to 1/5 of vodka per day and last drink was a couple hours ago and she has no acute symptoms of withdrawal. She is tearful during examination but in no distress. Vital signs stable. CBC shows elevated MCV but is otherwise normal. Normal electrolytes and renal function. LFTs are very minimally elevated. test is negative. Urine tox positive for benzodiazepines and cannabinoids. Alcohol level 276. Case was discussed with hospitalist for admission. I have personally performed a face to face assessment of the patient and have reviewed the YANE Note. I performed a substantive portion of the visit including all aspects of the following. My ku findings include: History is remarkable for alcoholism. Patient was in detox approximately 2 years ago. She began drinking 5 months ago after her and her had a significant argument. She no longer resides with her . She does have 2 sons she resides with. She states she occasionally smokes. She consumes pint of vodka daily. She reports last alcoholic beverage was couple hours ago. Patient denies drug use. Patient denies history of hepatitis or liver disease. Patient denies bruising easily. She denies hematemesis, melena medic easier. She denies hematuria. Exam is remarkable for 43-year-old thin woman who clinically appears intoxicated. She has alcohol odor to her breath. HEENT exam is remarkable for injected sclera. Conjunctive is pink. Trachea is midline. Lungs are clear auscultation. Heart is regular. Rate is normal. There is no murmur, gallop or rub. Abdomen is soft nontender. There is no CVA tenderness noted. She is alert she is oriented x 3. She moves all extremities. She does have dysmetria. Medical Decision Making will obtain addiction medicine laboratory studies. Will then contact hospitalist for admission for detox to alcohol. Other additions or changes: Dr. Whitman requested to see the patient before placing admit orders. At 1739 it was noted that he put in admission orders. Will place admission orders from the ER as well. Lab Data Labs: Laboratory Results - last 24 hr 09/11/23 09/11/23 09/11/23 15:15 15:51 16:00 WBC 5.8 RBC 4.03 L Hgb 13.4 Hct 41.1 MCV 102.0 H MCH 33.3 H MCHC 32.6 RDW Std Deviation 45.8 H RDW Coeff of Mendez 12.2 Plt Count 215 MPV 10.2 Immature Gran % (Auto) 0.300 Neut % (Auto) 60.4 Lymph % (Auto) 32.4 Villalba % (Auto) 6.1 Eos % (Auto) 0.3 Baso % (Auto) 0.5 Absolute Neuts (auto) 3.5 Absolute Lymphs (auto) 1.87 Nucleated RBC % 0 Sodium 140 Potassium 3.6 Chloride 105 Carbon Dioxide 28.0 Anion Gap 7 BUN 8 Creatinine 0.76 Estim Creat Clear Calc 88.69 Est GFR (MDRD) Af Amer 105 Est GFR (MDRD) Non-Af 87 BUN/Creatinine Ratio 10.5 Glucose 107 H Calcium 9.2 Total Bilirubin 0.40 AST 57 H ALT 63 H Alkaline Phosphatase 55 Total Protein 7.1 Albumin 4.2 Globulin 2.9 Albumin/Globulin Ratio 1.4 Serum , Qual NEGATIVE Urine Opiates Screen NEGATIVE Urine Methadone Screen NEGATIVE Ur Barbiturates Screen NEGATIVE Ur Phencyclidine Scrn NEGATIVE Ur Amphetamines Screen NEGATIVE MDMA (Ecstasy) Screen NEGATIVE U Benzodiazepines Scrn POSITIVE H Urine Cocaine Screen NEGATIVE U Cannabinoids Screen POSITIVE H Ur Drug Screen Comment Ethyl Alcohol 276.0 <Dr. Home Lawson MD - Last Filed: 09/11/23 17:40> [facility] Narrative Medical decision making narrative: Patient is here requesting alcohol detox. She drinks up to 1/5 of vodka per day and last drink was a couple hours ago and she has no acute symptoms of withdrawal. She is tearful during examination but in no distress. Vital signs stable. CBC shows elevated MCV but is otherwise normal. Normal electrolytes and renal function. LFTs are very minimally elevated. test is negative. Urine tox positive for benzodiazepines and cannabinoids. Alcohol level 276. I have personally performed a face to face assessment of the patient and have reviewed the YANE Note. I performed a substantive portion of the visit including all aspects of the following. My ku findings include: History is remarkable for alcoholism. Patient was in detox approximately 2 years ago. She began drinking 5 months ago after her and her had a significant argument. She no longer resides with her . She does have 2 sons she resides with. She states she occasionally smokes. She consumes pint of vodka daily. She reports last alcoholic beverage was couple hours ago. Patient denies drug use. Patient denies history of hepatitis or liver disease. Patient denies bruising easily. She denies hematemesis, melena medic easier. She denies hematuria. Exam is remarkable for 43-year-old thin woman who clinically appears intoxicated. She has alcohol odor to her breath. HEENT exam is remarkable for injected sclera. Conjunctive is pink. Trachea is midline. Lungs are clear auscultation. Heart is regular. Rate is normal. There is no murmur, gallop or rub. Abdomen is soft nontender. There is no CVA tenderness noted. She is alert she is oriented x 3. She moves all extremities. She does have dysmetria. Medical Decision Making will obtain addiction medicine laboratory studies. Will then contact hospitalist for admission for detox to alcohol. Other additions or changes: Dr. Whitman requested to see the patient before placing admit orders. At 1739 it was noted that he put in admission orders. Will place admission orders from the ER as well. History & Record Review Additional record(s) reviewed:: Prior outpatient record ([facility] records reviewed. Patient had problems with abnormal bleeding. She had a total vaginal hysterectomy with bilateral supine nephrectomy by Dr. Luisana Kuo.) and Prior labs Lab Data Attestation: I reviewed the patient's lab results. Lab results narrative: CBC is remarkable for an MCV of 102 which is consistent with her alcohol use. Alcohol is 276. Competence of metabolic panel is remarkable for slight elevation in AST and ALT of 57 and 63 respectively. Glucose is slightly elevated 107 with normal CO2 anion gap. Labs: Laboratory Results - last 24 hr 09/11/23 09/11/23 09/11/23 15:15 15:51 16:00 WBC 5.8 RBC 4.03 L Hgb 13.4 Hct 41.1 MCV 102.0 H MCH 33.3 H MCHC 32.6 RDW Std Deviation 45.8 H RDW Coeff of Mendez 12.2 Plt Count 215 MPV 10.2 Immature Gran % (Auto) 0.300 Neut % (Auto) 60.4 Lymph % (Auto) 32.4 Villalba % (Auto) 6.1 Eos % (Auto) 0.3 Baso % (Auto) 0.5 Absolute Neuts (auto) 3.5 Absolute Lymphs (auto) 1.87 Nucleated RBC % 0 Sodium 140 Potassium 3.6 Chloride 105 Carbon Dioxide 28.0 Anion Gap 7 BUN 8 Creatinine 0.76 Estim Creat Clear Calc 88.69 Est GFR (MDRD) Af Amer 105 Est GFR (MDRD) Non-Af 87 BUN/Creatinine Ratio 10.5 Glucose 107 H Calcium 9.2 Total Bilirubin 0.40 AST 57 H ALT 63 H Alkaline Phosphatase 55 Total Protein 7.1 Albumin 4.2 Globulin 2.9 Albumin/Globulin Ratio 1.4 Serum , Qual NEGATIVE Urine Opiates Screen NEGATIVE Urine Methadone Screen NEGATIVE Ur Barbiturates Screen NEGATIVE Ur Phencyclidine Scrn NEGATIVE Ur Amphetamines Screen NEGATIVE MDMA (Ecstasy) Screen NEGATIVE U Benzodiazepines Scrn POSITIVE H Urine Cocaine Screen NEGATIVE U Cannabinoids Screen POSITIVE H Ur Drug Screen Comment Ethyl Alcohol 276.0 Discharge Plan Dx/Rx/DC Orders Clinical Impression: Desire for detoxification, Alcohol abuse, Alcohol dependence Disposition Disposition: Acute Care Hospital [facility] Discharge Date/Time: 09/11/23 18:38
[2023-09-11 15:34] LABS: Absolute Lymphocyte Count 1.87 X10^3/uL (0.83-4.51); Absolute Neutrophil Count 3.5 X10^3/uL (2.0-7.7); Basophil# 0.03 X10^3/uL; Basophil% 0.5 % (0-1); Eosinophil# 0.02 X10^3/uL; Eosinophils% 0.3 % (0-5); Hematocrit 41.1 % (37-47); Hemoglobin 13.4 g/dL (12.0-15.0); Lymphocyte # 1.87 X10^3/ul (0.83-4.51); Lymphocyte % 32.4 % (19-41); Mean Corp Hgb Conc 32.6 g/dL (32-36); Mean Corpuscular Hgb 33.3 pg (27.0-32.0); Mean Platelet Vol. 10.2 fl (6.2-12.0); Monocyte# 0.35 X10^3/uL; Monocyte% 6.1 % (0-10); NRBC Flagged by Analyzer 0 % (0-5); Neutrophil # 3.48 X10^3/uL (2.7-7.7); Neutrophil % 60.4 % (47-70); Platelet Count 215 K/mm3 (150-450); RBC Distribution Width CV 12.2 % (11.6-14.6); RBC Distribution Width SD 45.8 fl (35.1-43.9); Red Blood Count 4.03 M/mm3 (4.2-5.4); White Blood Count 5.8 K/mm3 (4.4-11.0)
[2023-09-11 15:47] LABS: ALB/GLOB Ratio 1.4 RATIO (0.9-2.4); AST(SGOT) 57 U/L (15-37); Alanine Aminotransfer ALT/SGPT 63 U/L (13-56); Albumin, Serum 4.2 g/dL (3.2-5.0); Alkaline Phosphatase 55 U/L (45-117); Anion Gap 7 (5-15); BUN 8 mg/dL (7-18); BUN/Creat Ratio 10.5 RATIO (10-20); Calcium,Total 9.2 mg/dL (8.5-10.1); Chloride 105 mmol/L (98-107); Creatinine, Serum 0.76 mg/dL (0.55-1.02); EST Glomerular Filtration Rate 87 mL/min (>60); Est Glom Filt Rate - Afr Amer 105 mL/min (>60); Estimated Creatinine Clearance 88.69 ml/min; Globulin 2.9 g/dL (2.2-4.2); Glucose 107 mg/dL (74-106); Potassium 3.6 mmol/L (3.5-5.1); Protein, Total 7.1 g/dL (6.4-8.2); Sodium Level 140 mmol/L (136-145)
[2023-09-11] MEDS: 0.9% Normal Saline (1000mL) 1,000 ML 999 ML IV (15:49)
[2023-09-11 15:56] VITALS: BP 98/59; PULSE 16; RESP 16; O2SAT 99
[2023-09-11 16:20] LABS: Internal QC Validated? YES +Cl - CLEAR BKGD; Pregnancy, Serum, hCG Quali. NEGATIVE Negative
[2023-09-11 16:21] LABS: Amphetamine Urine VISTA NEGATIVE (<1000 ng/mL); Barbiturate Urine VISTA NEGATIVE (< 200 ng/mL); Benzodiazepine Urine VISTA POSITIVE (< 200 ng/mL); Cocaine Urine VISTA NEGATIVE (< 300 ng/mL); Ecstacy Urine VISTA NEGATIVE (< 500 ng/mL); Methadone Urine VISTA NEGATIVE (< 300 ng/mL); PCP Urine VISTA NEGATIVE (< 25 ng/mL); THC Urine VISTA POSITIVE (< 50 ng/mL); Vista UDS pH Range 6
[2023-09-11 17:00] VITALS: BP 91/79; PULSE 64; RESP 16; O2SAT 98
--- NOTE | 2023-09-11 17:18 | ED.RN ---
PT. STATES SHE WANTS SON TO READ RAMP CONTRACT. EXPLAINED TO PT. THAT IT WAS JUST A CONTRACT THAT STATES YOU AGREE TO THE RULES.
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
[2023-09-11 17:40] VITALS: BP 92/64; PULSE 89; RESP 16; TEMP 36.4; O2SAT 99
[2023-09-11 18:00] VITALS: BP 137/82; PULSE 89; RESP 17; TEMP 36.3; O2SAT 96
[2023-09-11 18:51] VITALS: BMI 18.8
[2023-09-11] MEDS: Prazosin HCl 1 MG Capsule 2 MG PO (20:24)
[2023-09-11] MEDS: Phenobarbital 32.4 MG Tablet 97.2 MG PO (20:24)
[2023-09-11] MEDS: busPIRone 15 MG TABLET PO (20:24)
[2023-09-11] MEDS: traZODone 100 MG Tablet PO (20:24)
[2023-09-11 20:30] VITALS: BP 100/66; PULSE 64; RESP 16; TEMP 36.7; O2SAT 100
[2023-09-12] MEDS: Phenobarbital 32.4 MG Tablet 97.2 MG PO ×3 (01:23→08:35)
[2023-09-12] MEDS: Ibuprofen 600 MG Tablet PO (05:41)
[2023-09-12 05:50] VITALS: BP 92/62; PULSE 75; RESP 16; TEMP 37.1; O2SAT 100
[2023-09-12 08:30] VITALS: BP 93/57; PULSE 86; RESP 18; TEMP 36.9; O2SAT 97
[2023-09-12] MEDS: Ensure Plus High Protein 120 ML LIQUID PO (08:36)
[2023-09-12] MEDS: Folic Acid 1 MG Tablet PO (08:36)
[2023-09-12] MEDS: Thiamine Hydrochloride 100 MG Tablet PO (08:36)
[2023-09-12] MEDS: Gabapentin 300 MG Capsule PO (08:39)
[2023-09-12] MEDS: Acetaminophen 500 MG Tablet PO (08:39)
--- NOTE | 2023-09-12 09:17 | PN.HOSP_ITS ---
Reason for Visit Reason for Visit: Alcohol detox Subjective Subjective Patient is a 43-year-old white female who presented to the emergency department at [facility] on 09/11/2023 requesting detoxification from alcohol. Over the past 5 months prior to presentation she reported she had been drinking alcohol but was sober for roughly 500 days prior to that. Things started deteriorate 5 months ago when she started taking a shot of liquor or 2 e very few days but states she slowly trended up and has since been drinking a bottle of low proof vodka daily. Her last drink was at 3 PM on the day of admission just 2 hours prior to presentation. She had no withdrawal symptoms at time of presentation. 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 She was to follow-up with 180 this coming Friday. She indicated that she has been going through some stressful periods in her life and this is why she started drinking again. She denied any other drugs but reports that she previously abused tobacco. Patient sleeping soundly at the time my evaluation. Objective Data Objective Data Vital Signs: Vital Signs Temp Pulse Resp BP Pulse Ox O2 Del Method 98.4 F 86 18 93/57 L 97 Room Air 09/12/23 08:30 09/12/23 08:30 09/12/23 08:30 09/12/23 08:30 09/12/23 08:30 09/12/23 08:30 Oxygen Delivery Method Room Air Weight: 54.749 kg Body Mass Index (BMI) 18.8 Intake & Output: Intake and Output for Last 24 Hours 09/10/23 09/11/23 09/12/23 23:59 23:59 23:59 Intake Total 1000 / 1000 1500 / 1500 Balance 1000 / 1000 1500 / 1500 Lab / Micro Data 09/11/23 15:15 09/11/23 15:15 Labs: Laboratory Results - last 24 hr 09/11/23 15:15: WBC 5.8, RBC 4.03 L, Hgb 13.4, Hct 41.1, MCV 102.0 H, MCH 33.3 H , MCHC 32.6, RDW Std Deviation 45.8 H, RDW Coeff of Mendez 12.2, Plt Count 215, MPV 10.2, Immature Gran % (Auto) 0.300, Neut % (Auto) 60.4, Lymph % (Auto) 32.4, Desha % (Auto) 6.1, Eos % (Auto) 0.3, Baso % (Auto) 0.5, Absolute Neuts (auto) 3.5, Absolute Lymphs (auto) 1.87, Nucleated RBC % 0, Sodium 140, Potassium 3.6, Chloride 105, Carbon Dioxide 28.0, Anion Gap 7, BUN 8, Creatinine 0.76, Estim Creat Clear Calc 88.69, Est GFR (MDRD) Af Amer 105, Est GFR (MDRD) Non-Af 87, BUN/Creatinine Ratio 10.5, Glucose 107 H, Calcium 9.2, Total Bilirubin 0.40, AST 57 H, ALT 63 H, Alkaline Phosphatase 55, Total Protein 7.1, Albumin 4.2, Globulin 2.9, Albumin/Globulin Ratio 1.4, Ethyl Alcohol 276.0 09/11/23 15:51: Urine Opiates Screen NEGATIVE, Urine Methadone Screen NEGATIVE, Ur Barbiturates Screen NEGATIVE, Ur Phencyclidine Scrn NEGATIVE, Ur Amphetamines Screen NEGATIVE, MDMA (Ecstasy) Screen NEGATIVE, U Benzodiazepines Scrn POSITIVE H, Urine Cocaine Screen NEGATIVE, U Cannabinoids Screen POSITIVE H, Ur Drug Screen Comment 09/11/23 16:00: Serum , Qual NEGATIVE Physical Exam Const no apparent distress, average body habitus and well nourished Constitutional Narrative: Middle-aged, female, lying in bed sleeping soundly, appears comfortable, nontoxic appearing HEENT head/scalp atraumatic Head and Scalp: normocephalic Resp normal respiratory effort, no retractions, no use of accessory muscles and clear to auscultation bilaterally Auscultation: Negative for rales, rhonchi or wheezes Cardio regular rate, regular rhythm, S1 normal heart sound, S2 normal heart sound, no murmurs, no rub, no gallops and no clicks GI normal to inspection, nondistended, normoactive bowel sounds and soft to palpation Extremity no clubbing, cyanosis or edema Extremity Narrative: Pedal pulses are 2+ Neuro Neuro Narrative: Unable to assess as patient was sleeping Psych Psych Narrative: Unable to assess as patient was sleeping Assessment & Plan Assessment/Plan (1) Severe malnutrition: PLAN: Plan Alcohol abuse with pending withdrawal -No acute withdrawal on presentation -Start phenobarbital -Continue thiamine and folate -Continue medication for symptom management due to withdrawal symptoms -180 consultation for assistance with discharge planning Elevated liver functions -Not consistent with an alcohol pattern as ALT is greater than AST -Will check right upper quadrant ultrasound as a suspect there may be a cirrhoti c component at this point -If cirrhosis present we will have patient follow-up with GI as an outpatient -Repeat LFTs in a.m. Severe malnutrition -Supplements added -Related to alcohol use and poor appetite along with inadequate energy intake -Dietitian is following-appreciate input Hypertension -Continue home provide prazosin at night Depression with history of major depressive disorder -Continue BuSpar -Continue Lexapro -Continue trazodone History of tobacco abuse -Recommend ongoing cessation DVT prophylaxis -Low risk -Encourage frequent and early ambulation CODE STATUS -full code Charges/Coding Visit Charges Inpatient E&M: 51774 Subs Hosp L2
--- NOTE | 2023-09-12 09:24 | US_ITS ---
INDICATION: transaminitis EXAMINATION: Ultrasound US Abdomen Limited (quadrant) TECHNIQUE: Shah scale and color doppler imaging was performed of the right upper quadrant. COMPARISON: FINDINGS: LIVER: There is fatty echotexture measuring 16.5 cm. No focal hepatic lesion. There is no free fluid. GALLBLADDER AND BILIARY TREE: No shadowing gallstone, pericholecystic fluid or gallbladder wall thickening is demonstrated. The proximal common bile duct measures 2 mm, which is within normal limits for the patient''s age. Songraphic Hoang''s sign: Negative. PANCREAS: No focal abnormality is demonstrated in the pancreas. No pancreatic ductal dilatation. RIGHT KIDNEY: 10.7 x 5.2 x 3.6 cm. The cortex is 13 mm. No hydronephrosis. No shadowing calculi. US/Abdomen Limited IMPRESSION: Fatty liver. Electronically Signed: Emmett Rodríguez DO at 19:26 EDT ,
[2023-09-12 12:46] VITALS: BP 96/64; PULSE 68; RESP 18; TEMP 37.1; O2SAT 98
[2023-09-12] MEDS: Escitalopram Oxalate 10 MG Tablet PO (12:48)
[2023-09-12] MEDS: busPIRone 15 MG TABLET PO ×2 (12:48→22:38)
[2023-09-12] MEDS: Phenobarbital 32.4 MG Tablet 64.8 MG PO ×3 (12:49→22:38)
--- NOTE | 2023-09-12 13:04 | ADDICTION ---
Attempted to meet with pt. She was sleeping soundly and was unable to complete her assessments. Digna, the on-call RAMP coordinator, will see her tomorrow.
--- NOTE | 2023-09-12 13:59 | CHAPLAIN ---
Type of Pastoral Visit ___ Initial Visit ___ Follow-up Visit ___ On-call Visit ___ General Patient Visit ___ Spiritual Assessment ___ Family Conference ___ Bereavement ___ Rapid Response ___ Code Blue ___ Other (describe below) Pastoral Care Referral From ___ Patient ___ Family ___ Nurse ___ Physician ___ Night Cleaner ___ Assistant Softball Coach ___ Other (describe below) Sacrament/Intervention ___ Active listening ___ Anointing ___ Sabianism ___ Bereavement ___ Communion ___ Roxanna exploration ___ ___ Life review ___ Prayer ___ Reconciliation ___ Sacrament of Sick ___ Supportive presence ___ Wedding ___ Other (describe below) Pastoral Comments patient is sleeping and did not awaken to her name
[2023-09-12 17:35] VITALS: BP 106/63; PULSE 75; RESP 18; TEMP 36.6; O2SAT 100
[2023-09-12] MEDS: Dicyclomine 10 MG Capsule 20 MG PO (17:40)
[2023-09-12 22:35] VITALS: BP 97/61; PULSE 69; RESP 16; TEMP 36.3; O2SAT 98
[2023-09-12] MEDS: traZODone 100 MG Tablet PO (22:38)
[2023-09-13] VITALS (8 sets, daily range): BP systolic 85–100; BP diastolic 50–67; PULSE 57–84; RESP 14–16; TEMP 36.4–36.9; O2SAT 96–100
[2023-09-13] MEDS: Phenobarbital 32.4 MG Tablet 64.8 MG PO ×5 (02:32→21:25)
[2023-09-13] MEDS: Thiamine Hydrochloride 100 MG Tablet PO (08:32)
[2023-09-13] MEDS: Folic Acid 1 MG Tablet PO (08:32)
[2023-09-13] MEDS: Ensure Plus High Protein 120 ML LIQUID PO ×2 (08:32→13:23)
[2023-09-13] MEDS: Escitalopram Oxalate 10 MG Tablet PO (10:30)
[2023-09-13] MEDS: busPIRone 15 MG TABLET PO ×2 (10:30→21:25)
--- NOTE | 2023-09-13 13:34 | PCM.PN.HOSP ---
Reason for Visit Reason for Visit: Us for alcohol detox Subjective Subjective Patient states she is not having any symptoms associated with alcohol withdrawal at this time. Only complains of some fatigue. States her plan is for outpatient follow-up and she has an appointment at 180 on Friday. Objective Data Objective Data Vital Signs: Vital Signs Temp Pulse Resp BP Pulse Ox O2 Del Method 97.8 F 74 16 89/55 L 100 Room Air 09/13/23 13:18 09/13/23 13:18 09/13/23 13:18 09/13/23 13:18 09/13/23 13:18 09/13/23 13:18 Oxygen Delivery Method Room Air Weight: 54.749 kg Body Mass Index (BMI) 18.8 Intake & Output: Intake and Output for Last 24 Hours 09/11/23 09/12/23 09/13/23 23:59 23:59 23:59 Intake Total 1000 / 1000 2040 / 2540 1020 / 1020 Balance 1000 / 1000 2040 / 2540 1020 / 1020 Medical Nutrition Assessment Dietitian: Malnutrition Criteria Met Start: 09/12/23 12:20 Freq: Status: Active Protocol: Document 09/12/23 12:20 SLA (Rec: 09/12/23 12:20 SLA Desktop) Nutrition Malnutrition Evidence of Malnutrition Exists Yes Malnutrition (severe): Social/Behavioral/ Environmental Evidenced By Suboptimal Energy Intake ( Severe),Weight Loss (Severe) Clinical Problem Acute Disease or Injury Related Malnutrition Etiology related to alcohol use/poor appetite and inadequate energy intake Signs/Symptoms as evidenced by 11.3% unintentional wt loss and po intake meeting <75% of est nutritional needs Status Active Problem Recommendation Dietitian Recommendations/Changes Continue regular diet w/ snacks tid and ensure plus high protein w/ medpass for increased nutrition if consumed. Lab / Micro Data 09/11/23 15:15 09/11/23 15:15 Radiography Diagnostic Testing: Radiology Impression Abdomen Ultrasound 09/12/23 09:24 IMPRESSION: Fatty liver. Electronically Signed: Emmett Rodríguez DO at 19:26 EDT , Physical Exam Const alert, oriented x3, no apparent distress, average body habitus and well nourished Constitutional Narrative: Middle-aged, female, lying in bed sleeping but awakens easily to name, appears comfortable, nontoxic, no tremor HEENT normocephalic, head/scalp atraumatic and moist oral mucous membranes Neuro oriented x3, moves all extremities and no focal motor deficits Speech: speech normal Psych affect normal Psych Narrative: Very pleasant, interacts appropriately Assessment & Plan Assessment/Plan (1) Severe malnutrition: PLAN: Plan Alcohol abuse with pending withdrawal -No acute withdrawal on presentation -Continue phenobarbital taper -Continue thiamine and folate -Continue medication for symptom management due to withdrawal symptoms -180 has evaluated the patient and plan is for outpatient follow-up for which she already has an appointment next Friday Elevated liver functions -Not consistent with an alcohol pattern as ALT is greater than AST -Fatty liver noted on ultrasound -Will refer to GI as an outpatient for ongoing follow-up Severe malnutrition -Supplements added -Related to alcohol use and poor appetite along with inadequate energy intake -Dietitian is following-appreciate input Hypertension -Continue home provide prazosin at night Depression with history of major depressive disorder -Continue BuSpar -Continue Lexapro -Continue trazodone History of tobacco abuse -Recommend ongoing cessation DVT prophylaxis -Low risk -Encourage frequent and early ambulation CODE STATUS -full code Charges/Coding Visit Charges Inpatient E&M: 75523 Subs Hosp L1
--- NOTE | 2023-09-13 15:10 | ADDICTION ---
Pt was met w/for RAMP assessment and the AUDIT, DUDIT, ASAM, and D/C Plan were completed w/pt, pt declined to sign any LEWIS's. Pt presents w/moderate risk of relapse and pt appears to be in contemplation stage of change. Pt is connected with [facility] services and has a follow up appt. scheduled with Deanna Younger on 09/19/23 at 10am for CORRIE and trauma therapy. Pt reports that she has stable housing and access to natural support w/her two sons, her mother, and a friend in recovery. Pt appears highly motivated to follow through w/tx recommendations. Pt was advised of relapse risk, warning signs, and sxs of PAWS. Cl is recommended to immediately follow up w/counseling, peer support services, and mutual support meetings upon d/c. Pt was provided resources and information on how to access immediate support w/PSS Hotline. Pt plans to d/c home and her sons will provide transportation.
[2023-09-13] MEDS: Ibuprofen 600 MG Tablet PO (15:13)
[2023-09-13] MEDS: traZODone 100 MG Tablet PO (21:25)
[2023-09-13] MEDS: Prazosin HCl 1 MG Capsule 2 MG PO (21:26)
[2023-09-14 03:30] VITALS: BP 76/45; PULSE 61; RESP 16; TEMP 36.7; O2SAT 98
[2023-09-14] MEDS: Phenobarbital 32.4 MG Tablet 64.8 MG PO ×2 (05:09→09:45)
[2023-09-14] MEDS: busPIRone 15 MG TABLET PO (09:06)
[2023-09-14] MEDS: Thiamine Hydrochloride 100 MG Tablet PO (09:07)
[2023-09-14] MEDS: Escitalopram Oxalate 10 MG Tablet PO (09:07)
[2023-09-14] MEDS: Folic Acid 1 MG Tablet PO (09:08)
[2023-09-14 09:20] VITALS: BP 83/64; PULSE 68; RESP 16; TEMP 36.6; O2SAT 100
--- NOTE | 2023-09-14 10:04 | DS.PCM_ITS ---
Providers Date of Admission: 09/11/23 Date of Discharge: 09/14/23 Primary Care Physician: CLAY Mackey Reason For Visit: ALCOHOL WITHDRAWAL Diagnosis Discharge Diagnosis (1) Severe malnutrition: Status: Acute Code(s): E43 - Unspecified severe protein-calorie malnutrition Medications at Discharge Home Medications buspirone 15 mg tablet 15 mg PO BID 09/11/23 escitalopram oxalate 10 mg tablet 10 mg PO DAILY 09/11/23 naltrexone 50 mg tablet 50 mg PO DAILY 09/11/23 prazosin 2 mg capsule 2 mg PO QHS 09/11/23 trazodone 100 mg tablet 100 mg PO QHS 09/11/23 Hospital Course Procedures - (Abdominal ultrasound) Summary of Care Provided Minutes Spent on Discharge: 25 Hospital Course: Ms Armas is a 43-year-old white female who presented to the emergency department at [facility] on 09/11/2023 requesting detoxification from [facility]. Over the past 5 months prior to presentation she reported she had been drinking alcohol but was sober for roughly 500 days prior to that. Things started deteriorate 5 months ago when she started taking a shot of liquor or 2 every few days but states she slowly trended up and has since been drinking a bottle of low proof vodka daily. Her last drink was at 3 PM on the day of admission just 2 hours prior to presentation. She had no withdrawal symptoms at time of presentation. 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 She was to follow-up with 180 this coming Friday. She indica esvin that she has been going through some stressful periods in her life and this is why she started drinking again. She denied any other drugs but reports that she previously abused tobacco. Her transaminases were noted to be elevated however the pattern was not an alcoholic pattern with the ALT being higher than the AST. Ultrasound was obtained and only showed fatty liver at this time. I would recommend that a repeat liver functions to be done in about 6 weeks and if they remain elevated repeat her ultrasound and make a GI referral. Her detox was overall uneventful. 180 did see here and they were able to arrange follow- up at 180 on September 18 at 1:30 in the afternoon. Patient does have a strong desire to regain and maintain sobriety. Patient was discharged home in stable condition on 09/14/2023. Discharge diagnoses: Alcohol abuse Alcohol withdrawal Elevated liver function tests Severe malnutrition Fatty liver Hypertension Depression with history of major depressive disorder History of tobacco abuse Physical Exam Narrative Patient is very pleasant. She states that she feels good and is ready to go home if able. Const alert, oriented x3, no apparent distress, average body habitus, no limitations, healthy appearing and well nourished Constitutional Narrative: Middle-aged, female, sitting up in bed eating breakfast and eating breakfast, appears comfortable, nontoxic, no signs of active alcohol withdrawal General Appearance: cooperative, comfortable, well kempt and well developed HEENT normocephalic, head/scalp atraumatic and moist oral mucous membranes HEENT Narrative: Mallampati 2, no thrush Resp normal respiratory effort, no retractions, no use of accessory muscles and clear to auscultation bilaterally Auscultation: Negative for rales, rhonchi or wheezes Cardio regular rate, regular rhythm, S1 normal heart sound, S2 normal heart sound, no murmurs, no rub, no gallops and no clicks GI normal to inspection, nondistended, normoactive bowel sounds, soft to palpation and non-tender Extremity no clubbing, cyanosis or edema Extremity Narrative: Pedal pulses are 2+ Skin No no rashes or lesions noted, No no wounds, No skin turgor normal and No no jaundice Neuro oriented x3, CN's II-XII intact bilaterally, moves all extremities and no focal motor deficits Speech: speech normal Psych affect normal Psych Narrative: Very pleasant, interacts appropriately Medical Records Data Medical Nutrition Assessment Dietitian: Malnutrition Criteria Met Start: 09/12/23 12:20 Freq: Status: Active Protocol: Document 09/12/23 12:20 [facility] (Rec: 09/12/23 12:20 [facility] Desktop) Nutrition Malnutrition Evidence of Malnutrition Exists Yes Malnutrition (severe): Social/Behavioral/ Environmental Evidenced By Suboptimal Energy Intake ( Severe),Weight Loss (Severe) Clinical Problem Acute Disease or Injury Related Malnutrition Etiology related to alcohol use/poor appetite and inadequate energy intake Signs/Symptoms as evidenced by 11.3% unintentional wt loss and po intake meeting <75% of est nutritional needs Status Active Problem Recommendation Dietitian Recommendations/Changes Continue regular diet w/ snacks tid and ensure plus high protein w/ medpass for increased nutrition if consumed. Weight / BMI Weight Weight: 54.749 kg Body Mass Index (BMI) 18.8 ABG / Lab / Microbiology Data 09/11/23 15:15 09/11/23 15:15 D/C Instructions Discharge Diet: Low fat / Low cholesterol Discharge Activity: Return to Normal Activity Return to work on: 09/15/23 Meaningful Use Info Meaningful Use Diagnoses (Choose all that apply): None applicable Discharge Plan Admission Admit Date/Time: 09/11/23 17:26 Primary Reason for Your Visit: Desire for alcohol detox Attending Provider: Sandra Wynne Primary Care Provider: Deneen Grant Consulting Providers: Cas Lopez Instructions Additional Instructions / Restrictions: 1. Please follow-up on Friday at 130 with 180 as scheduled Discharge Orders/Prescriptions Prescriptions: Continued naltrexone 50 mg tablet 50 mg PO DAILY trazodone 100 mg tablet 100 mg PO QHS buspirone 15 mg tablet 15 mg PO BID escitalopram oxalate 10 mg tablet 10 mg PO DAILY prazosin 2 mg capsule 2 mg PO QHS Discontinued chlordiazepoxide HCl 25 mg capsule 25 mg PO DAILY Referrals / Follow Up: Deneen Grant PA [Primary Care Provider] - Within 2 Weeks Disposition Disposition (needs filled in before D/C Order can be placed): Home, Self Care Charges/Coding Visit Charges Inpatient E&M: 80779 Disch Hosp
== END 2023-09-14 11:22 | disposition home or self-care (01) | DRG 896 ==
LOC: ED 17:39 → MS3 18:17
PROVIDERS: Physician Assistant; Emergency Provider Emergency Medicine; PCP Physician Assistant; Visit Provider Internal Medicine
DX: F10.239 Alcohol dependence with withdrawal, unspecified (principal); E43 Unspecified severe protein-calorie malnutrition; Z68.1 Body mass index [BMI] 19.9 or less, adult; K76.0 Fatty (change of) liver, not elsewhere classified; I10 Essential (primary) hypertension; F32.A Depression, unspecified; Y90.8 Blood alcohol level of 240 mg/100 ml or more; F41.1 Generalized anxiety disorder; Z63.0 Problems in relationship with spouse or partner; Z79.899 Other long term (current) drug therapy; Z87.891 Personal history of nicotine dependence; Z81.1 Family history of alcohol abuse and dependence; Z81.8 Family history of other mental and behavioral disorders
CPT/HCPCS: 76705; 80053; 80307; 80320; 84703; 85025; 97802; 99284; J7030; A4216; G0480

== ENCOUNTER → 2024-03-11 20:40 | Outpatient (REF) | payer SELFPAY | END | disposition home or self-care (01) | LOC: ED 20:40 | PROVIDERS: PCP Physician Assistant | DX: Z04.89 Encounter for examination and observation for other specified reasons (principal) ==

== ENCOUNTER → 2024-04-15 | Outpatient (CLI) | payer BC, SELFPAY ==
--- OUTSIDE RECORDS SUMMARY | 2024-04-15 12:07 | XMS RPT_ITS | CCD ---
Author Organization [facility] Care Team Providers Care Professor Of Counseling Name Role Phone Unavailable Primary Care Provider Unavailabl e Inc, [facility] Primary Care Provider Unav ailable MARKOS MEYERS Attending Unavailable [facility], [facility] Primary Care Unavailable ZEWAIL, MARKOS Attending Unavailable [facility], [facility] Primary Care Unavailable ZEWAILMARKOS Attending Unavailable INC, [facility] Primary Care Unavailable INC, [facility] Primary Care Unavailable ZEWAIL, MARKOS Referring Unavailable [facility], [facility] Primary Care Unavailable LOUIE WINTER Attending Unavailable [facility], [facility] Primary Care Unavailable Medications Current Medications Medication Drug Class(es) Dates Sig (Normalized) Sig (Original) acetaminophen 325 mg oral tablet (2 sources) Start: 01-16-2021 acetaminophen (TYLENOL) tablet 650 mg Start: 01-16-2021 650 mg, Rectal , EVERY 6 HOURS PRN, Pain Mild (1-3), Fever, For temp greater than 100.4 F (38 C), Starting on Fri01/16/21 at 0524 Administer if oral route cannot be used. 24 hr buPROPion hydrochloride 150 mg extended release oral tablet (1 source) Aminoketone take 1 tablet by mouth once daily in the morning buPROPion (WELLBUTRIN XL) 150 MG extended release tablet Take 150 mg by mouth every morning 0 Active busPIRone hydrochloride 15 mg oral tablet (10 sources) Start: 09-04-2023 End: 09-03-2024 take 1 tablet by mouth twice daily busPIRone (Buspar) 15 MG tablet Take 1 tablet (15 mg) by mouth 2 times daily. 60 tablet 11 09/04/2023 09/03/2024 Active take 2 tablets by mouth twice da misty busPIRone (BUSPAR) 15 MG tablet Take 30 mg by mouth 2 times daily 0 Active chlordiazePOXIDE hydrochloride 25 mg oral capsule (7 sources) Benzodiazepine Start: 09-04-2023 End: 09-09-2023 chlordiazePOXIDE (Librium) 25 MG capsule Indications: Alcohol use disorder Take 1 capsule (25 mg) by mouth in the morning and 1 capsule (25 mg) at noon and 1 capsule (25 mg) in the evening and 1 capsule (25 mg) before bedtime. Do all this for 18 doses. 18 capsule 0 09/04/2023 Active 24 hr desvenlafaxine succinate 50 mg extended release oral tablet (1 source) Serotonin and Norepinephrine Reuptake Inhibitor Start: 01-18-2021 take 1 tablet by mouth once daily desvenlafaxine succinate (PRISTIQ) 50 MG TB24 extended release tablet Take 1 tablet by mouth daily 30 tablet 1 01/18/2021 Active 0.4 ml enoxaparin sodium 100 mg/ml prefilled syringe (1 source) Low Molecular Weight Heparin Start: 01-16-2021 inject 40 mg by subcutaneous injection once daily 40 mg, Subcutaneous, DAILY, First dose on Fri01/16/21 at 1200 escitalopram 10 mg oral tablet (9 sources) Serotonin Reuptake Inhibitor Start: 09-04-2023 End: 09-03-2024 take 1 tablet by mouth once daily escitalopram (Lexapro) 10 MG tablet Take 1 tablet (10 mg) by mouth daily. 30 tablet 11 09/04/2023 09/03/2024 Active folic acid 1 mg oral tablet (1 source) Start: 01-16-2021 folic acid (FOLVITE) tablet 1 mg gabapentin 100 mg oral capsule (5 sources) Anti-epileptic Agent Start: 09-17-2023 End: 10-17-2023 take 2 capsules by mouth once daily gabapentin (Neurontin) 100 MG capsule Take 2 capsules (200 mg) by mouth Nightly. 60 capsule 0 09/17/2023 Active hydrOXYzine pamoate 50 mg oral capsule (1 source) Antihistamine Start: 01-16-2021 hydrOXYzine (VISTARIL) capsule 50 mg loperamide hydrochloride 2 mg oral capsule (1 source) Opioid Agonist Start: 01-16-2021 loperamide (IMODIUM) capsule 2 mg LORazepam (2 sources) Benzodiazepine Start: 01-16-2021 LORazepam (ATIVAN) tablet 1 mg Start: 01-16-2021 End: 01-16-2021 LORazepam (ATIVAN) injection 1 mg magnesium hydroxide 80 mg/ml oral suspension (1 source) Start: 01-16-2021 magnesium hydroxide (MILK OF MAGNESIA) 400 MG/5ML suspension 30 mL mirtazapine 30 mg oral tablet (1 source) Start: 10-01-2023 End: 09-30-2024 take 1 tablet by mouth once daily mirtazapine (Remeron) 30 MG tablet Take 1 tablet (30 mg) by mouth Nightly. 30 tablet 10/01/2023 09/30/2024 Active naltrexone 380 mg injection (15 sources) Opioid Antagonist Start: 09-04-2023 naltrexone E R (Vivitrol) injection Inject 4 mL (380 mg) into the shoulder, thigh, or buttocks every 28 (twenty-eight) days. 1 each 09/04/2023 Active Start: 09-04-2023 End: 10-04-2023 take 1 tablet by mouth once daily naltrexone (Depade) 50 MG tablet Take 1 tablet (50 mg) by mouth daily. 30 tablet 0 09/04/2023 10/04/2023 Active ondansetron 8 mg oral tablet (2 sources) Serotonin-3 Receptor Antagonist Start: 01-16-2021 ondansetron (ZOFRAN) tablet 8 mg Start: 01-16-2021 take 4 mg by mouth e very six hours as needed for nausea 4 mg, Intravenous, EVERY 6 HOURS PRN, Nausea, Vomiting, Starting on Fri01/16/21 at 0524 Administer if oral route cannot be used. pantoprazole 40 mg delayed release oral tablet (1 source) Proton Pump Inhibitor Start: 01-16-2021 take 40 mg by mouth once daily before breakfast 40 mg, Oral, DAILY BEFORE BREAKFAST, First dose on Fri01/16/21 at 0700 Do not crush or break. polyethylene glycol [id number] mg powder for oral solution (1 source) Osmotic Laxative Start: 01-16-2021 17 g, Oral, D AILY PRN, Constipation, Starting on Fri01/16/21 at 1022 First line therapy for constipation prazosin 2 mg oral capsule (7 sources) alpha-Adrenergic Jade Start: 09-04-2023 End: 09-03-2024 take 1 capsule by mouth once daily prazosin (Minipress) 2 MG capsule Take 1 capsule (2 mg) by mouth Nightly. 30 capsule 11 09/04/2023 09/03/2024 Active sodium chloride flush 0.9 % injection 3 mL (1 source) Start: 01-16-2021 sodium chlorid e flush 0.9 % injection 3 mL therapeutic multivitamin-minera ls 1 tablet (1 source) Start: 01-16-2021 therapeutic multivitamin-bank examiner als 1 tablet thiamine 250 mg oral tablet (10 sources) Start: 09-04-2023 End: 12-03-2023 take 1 tablet by mouth once daily thiamine (Vitamin B-1) 250 MG tablet Take 1 tablet (250 mg) by mouth daily. 90 tablet 2 09/04/2023 12/03/2023 Active Start: 01-16-2021 thiamine monon itrate tablet 300 mg traZODone hydrochloride 100 mg oral tablet (11 sources) Serotonin Reuptake Inhibitor Start: 09-04-2023 End: 10-04-2023 take 1 tablet by mouth once daily traZODone (Desyrel) 100 MG tablet Take 1 tablet (100 mg) by mouth Nightly. 30 tablet 0 09/04/2023 Active Start: 01-18-2021 take 1 tablet by ernie th once daily as needed for sleep traZODone (DESYREL) 100 MG tablet Take 1 tablet by mouth nightly as needed for Sleep 30 tablet 1 01/18/2021 Active Start: 01-16-2021 traZODone (AKSHAT YREL) tablet 100 mg Completed/Discontinued Medications Medication Drug Class(es) Dates Sig (Normalized) Sig (Original) PHENobarbital (3 sources) Start: 07-16-2021 End: 07-16-2021 PHENobarbital (LUMINAL) tablet 97.2 mg Start: 01-16-2021 PHENobarbital (LUMINAL) tablet 97.2 mg Start: 01-16-2021 End: 01-16-2021 PHENobarbital (LUMINAL) tabl et 97.2 mg 50 ml sodium chloride 9 mg/m l injection (8 sources) Start: 07-15-2021 End: 07-15-2021 0.9 % sodium chloride bolus Start: 01-16-2021 take 1 dose intraven ously twice daily 5-40 mL, Intravenous, EVERY 12 HOURS SCHEDULED (2 times per day), First dose on Fri01/16/21 at 1030 For Line Patency: Peripheral IV = 5 mL; Midline or Central Line = 10 mL/lumen. If following IV push medication, administer flush at same rate as the IV push. Flush volume is determined by type of infusion therapy being given. For non-viscous solutions use: Peripheral IV = 5 mL Midline or Central Line = 10 mL/lumen For viscous solutions (i.e. blood components, parenteral nutrition, contrast media, or after obtaining blood sample) use: Peripheral IV = 10 mL Midline or Central Line = 20 mL/lumen Start: 01-16-2021 take 25 mL intraveno usly every hour as needed 25 mL, Intravenous, at 100 mL/hr, PRN, If patient receiving piggyback infusions without ordered maintenance IV fluids or with frequent/long duration piggyback infusions, Starting on Fri01/16/21 at 1022 Administer at the same rate as the piggyback being infused. Start: 01-16-2021 take 5-40 mL intrave nously once as needed 5-40 mL, Intravenous, PRN, Line Care, After every IV line use, Starting on Fri01/16/21 at 1022 For Line Patency: Peripheral IV = 5 mL; Midline or Central Line = 10 mL/lumen. If following IV push medication, administer flush at same rate as the IV push. Flush volume is determined by type of infusion therapy being given. For non-viscous solutions use: Peripheral IV = 5 mL Midline or Central Line = 10 mL/lumen For viscous solutions (i.e. blood components, parenteral nutrition, contrast media, or after obtaining blood sample) use: Peripheral IV = 10 mL Midline or Central Line = 20 mL/lumen Start: 01-16-2021 0.9 % sodium c hloride infusion Start: 01-16-2021 sodium chlorid e flush 0.9 % injection 5-40 mL Start: 01-16-2021 End: 01-16-2021 0.9 % sodium chloride bolus Problems Active Problems Problem Classification Problem Date Documented Da te Episodic/Chronic Alcohol-related disorders (20 sources) Alcohol dependence; Translations: [Alcohol dependence with intoxication, uncomplicated] Onset: 01-16-2021 Resolved: 01-19-2021 Chronic Anxiety disorders (20 sources) Mixed anxiety and depressive disorder; Translations: [Anxiety disorder, unspecified] Onset: 01-16-2021 Chronic Mood disorders (6 sources) Depressive disorder; Translations: [Depression, unspecified depression type] 09-04-2023 Chronic Mood disorders (2 sources) Mood disorders; Translations: [Depression, unspecified] Onset: 09-04-2023 Residual codes; unclassified (6 sources) Alcoholism; Translations: [Alcohol use disorder] 09-04-2023 Episodic Residual codes; unclassified (6 sources) Insomnia; Translations: [Insomnia, unspecified] 09-04-2023 Episodic Residual codes; unclassified (2 sources) Insomnia, unspecified; Translations: [Insomnia, unspecified] Onset: 09-04-2023 Episodic Unclassified (1 source) Alcohol use, unspecified, uncomplicated; Translations: [Alcohol use, unspecified, uncomplicated] Onset: 09-04-2023 Past or Other Problems Problem Classification Problem Date Documented Da te Episodic/Chronic Fluid and electrolyte disorders (3 sources) Metabolic acidosis, increased anion gap (IAG); Translations: [Acidosis] Onset: 01-16-2021 Resolved: 01-17-2021 Episodic Suicide and intentional self-inflicted injury (2 sources) Suicidal thoughts; Translations: [Suicidal ideations] Onset: 01-16-2021 Resolved: 01-16-2021 01-16-2021 Episodic Unclassified (1 source) Alcohol use, unspecified, uncomplicated; Translations: [Alcohol use, unspecified, uncomplicated] Onset: 09-04-2023 Results Test Name Value Interpretation Reference Range Facility Progress Noteon 10-01-2023 Progress Note ADDICTION MEDICINE OPIOID MAINTENANCE THERAPY FOLLOW-UP VISIT PATIENT: Mark Coon Chief complaint Seen for follow up of substance dependence/use disorder, evalutae the sobriety progress and to monitor withdrawals Subjective Mark Coon, a 43 y.o. female, The patient is here for follow-up of MAT appointment Patient got her shot of Vivitrol She said that she noticed that the cravings has done the very next day and she feels great on it Other than the local soreness there is no side effects Patient stated that her anxiety and depression has flared up and she has not been eating well because of family issues with her and her Patient is requesting something to help her with eating and sleeping She denies any recent relapses despite of all the above stresses Cravings are well taking care of PTSD nightmares controlled stable Review of systems: Denies suicidal or homicidal ideation denies tactile auditory or visual hallucinations All of systems ROS was completed and was negative unless stated above Objective There were no vitals filed for this visit. Physical Exam Constitutional: Appearance: Normal appearance. She is normal weight. Neurological: Mental Status: She is alert. Psychiatric: Mood and Affect: Mood normal. Behavior: Behavior normal. Thought Content: Thought content normal. Judgment: Judgment normal. Current Outpatient Medications Medication Sig Dispense Refill busPIRone (Buspar) 15 MG tablet Take 1 tablet (15 mg) by mouth 2 times daily. 60 tablet 11 escitalopram (Lexapro) 10 MG tablet Take 1 tablet (10 mg) by mouth daily. 30 tablet 11 gabapentin (Neurontin) 100 MG capsule Take 2 capsules (200 mg) by mouth Nightly. 60 capsule 0 mirtazapine (Remeron) 30 MG tablet Take 1 tablet (30 mg) by mouth Nightly. 30 tablet 11 naltrexone (Depade) 50 MG tablet Take 1 tablet (50 mg) by mouth daily. 30 tablet 0 naltrexone ER (Vivitrol) injection Inject 4 mL (380 mg) into the shoulder, thigh, or buttocks every 28 (twenty-eight) days. 1 each 11 thiamine (Vitamin B-1) 250 MG tablet Take 1 tablet (250 mg) by mouth daily. 90 tablet 2 traZODone (Desyrel) 100 MG tablet Take 1 tablet (100 mg) by mouth Nightly. 30 tablet 0 No current facility-administere d medications for this visit. OARRS: Reviewed and no inconsistencies or concerns Controlled Substances Monitoring: No data to display Assessment & Plan Substance dependence disorder 1. Alcohol use disorder 2. Depression, unspecified depression type 3. RAMEZ (generalized anxiety disorder) 4. Insomnia, unspecified type 5. PTSD (post-traumatic stress disorder) No orders of the defined types were placed in this encounter. @MEDORDMED@ 1-on Vivitrol denies any recent relapses patient to continue Lexapro and the BuSpar We will get liver function next time when she gets her Vivitrol shot 2,3 depression and anxiety patient to continue the Lexapro and the BuSpar we will add Remeron at bedtime 4 for insomnia continue the trazodone we will add Remeron 5 continue the prazosin for PTSD Patient Goals: 1. Continue 12-step meeting attendance (goal of 2 per week). 2. Actively communicate with sponsor. 3. Take medication as directed and report any negative side effects or missed doses. 4. Report any illicit drug use to either the protective services case worker or myself/my staff. 5. Keep medicine out of the reach of children. 6. Follow-up with recommended level of care. Interventions in Session: 1. Discussed patient's progress in their 12-step program. 2. Discussed progress in recovery and overall well-being. 3. Discussed stressors/triggers for a potential relapse & related coping mechanisms. No follow-ups on file. Patient was identified and seen today via Telehealth by agreement and consent. I used the following Telehealth technology: Audio and video capabilities. Patient location: Patient Location: Home. This patient encounter is appropriate and reasonable under the circumstances: transportation issues . The patient has been advised of the potential risks and limitations of this mode of treatment (including but not limited to the absence of in-person examination) and has agreed to be treated in a remote fashion in spite of them. Any and all of the patient's/patient's family's questions on this issue have been answered and I have made no promises or guarantees to the patient. The patient has also been advised to contact this office for worsening conditions or problems, and seek emergency medical treatment and/or call 911 if the patient deems either necessary. The patient stated that they are currently in the [facility]. If the patient is a minor, permission has been obtained by the parent or guardian for the patient to receive medical care at this visit. MARKOS MEYERS MD, MD Addiction Medicine 10/01/2023 at 2:[address] [facility] Behavioral Health Treatment Planon 09-29-2023 Behavioral Health Treatment Plan Initial Level of Care Placed: 2.1 Family Members/Friends Who Can Be Involved In Treatment Name Relationship Release obtained? (if no, explain) Ross Coon Spouse E.C only Services Service(s) Provided (if group, include name) Primary Provider Frequency Date Added Discharge Date Nurse/Vivek Silva RN Every 28 days 09/29/23 Consideration for Discharge: Improve Level of Functioning, Control/Maintain Symptoms, Decrease Symptoms, and Prevent Relapse [facility] CARECOORDon 09-29-2023 [facility] Breathalyzer and/or Urine Drug Screen Results Date Results Shared with Patient: 09/29/23 Time: 1059 Date of UDS Specimen Collection or Breathalyzer: 09/29/23 Test Result(s) Shared with Patient: [x] Urine Drug Screen [] Breathalyzer Rationale for the Breathalyzer/UDS (please check all that apply): Monitoring Sobriety/Level of Use: Treatment Compliance: Behavioral Indicators: [] History of relapse [x] Confirm MAT Compliance [] Observed change in level of functioning [] Reported Relapse [] Accountability/Rando m Screen [] Concerns with living/recovery environment [] Previous positive screen [] Recent Absences [] Suspicion of active use by patient [] Confirmation of Sobriety [] Lack of Program Compliance [] Patient Request [] Other (identify): Results shared with patient: [] Negative UDS Results [] Negative Confirmation Test Results [x] Positive UDS Result for: Barbituates, THC [] Positive Confirmation Test Result(s) for: [] Breathalyzer Result: Patient Response to Test Result(s): Pt compliant. Plan/Intervention Based on Test Results: [] Increase frequency of testing [] Linkage/referral for additional services [] Consideration for higher level of care [] Additional Information/educatio n [] Consider change in treatment milieu [] Consideration for lower level of care [] Referral to MAT [] Skill development/reinforc ement [] Request Confirmation Test [] Retest (note timeframe below) [x] Other (identify): n/a Description of Plan/Intervention: n/a Patient's Response to Plan/Intervention:n/ a [facility] IDNon 09-29-2023 IDN Pt states she had severe cravings for alcohol. She relapsed [address] [facility] Progress Noteon 09-29-2023 Progress Note Vivitrol Administration Appointment Mark arrived at [facility] for 1st injection appointment Problem List Items Addressed This Visit None UDS completed? Yes Vital signs taken and physical assessment also performed (see flowsheet). Oriented to person? YES/NO: Yes Oriented to place? YES/NO: Yes Oriented to time? YES/NO: Yes Oriented to situation? YES/NO: Yes Self-injurious thoughts? YES/NO: No Thoughts of harming others? YES/NO: No Therapy plan up to date? Yes Does Mark have any planned surgical or dental procedures scheduled? YES/NO: No Reviewed possible side effects of Vivitrol and when to seek medical attention. Patient stated understanding and was given the opportunity during the appointment to ask any questions or voice any concerns. Mark next injection scheduled for: 10/27/23. Vivitrol injected intramuscular with 1.5 needle into right dorsogluteal muscle. Patient tolerated injection well. Patient encouraged to call Clinic with any questions or concerns and reported understanding. [facility] 36on 09-18-2023 36 Vivitrol approved by insurance. Pnt next appt on 10/01/23. Please advise if you'd like to see her sooner that that [facility] 36 Name of caller: Mark Contact phone number: [phone] Relationship to Patient: patient Provider: Dr. Meyers Practice: Behavioral Health Chief Complaint/Reason for Call: Patient Mark calling in and states that her insurance approved her medication Vivitrol. Patient is wanting to know if the provider wants this sent to the office or what the next steps will be. Please advise Best time of day caller can be reached: Any Patient advised that office/PCP has 24-48 business hours to return their call: N/A [facility] Progress Noteon 09-17-2023 Progress Note ADDICTION MEDICINE OPIOID MAINTENANCE THERAPY FOLLOW-UP VISIT PATIENT: Mark Coon Chief complaint Seen for follow up of substance dependence/use disorder, evalutae the sobriety progress and to monitor withdrawals Subjective Mark Coon, a 43 y.o. female, The patient is here for follow-up of MAT appointment She was good in doing so far and was started on naltrexone oral pills Patient has not had a drink since a week now She came out of the detox from [facility] 4 days ago Denies any relapses since then Patient has been taking her Lexapro for anxiety and depression she said that she feels improvement and attributing it mainly to stopping drinking Denies any suicidal or homicidal ideation On prazosin for PTSD she denies nightmares however she still having insomnia even though she is on trazodone Patient states that while she was in detox she was given gabapentin at bedtime that helped a lot with sleeping and was wondering if she can resume that Patient to continue the BuSpar for her anxiety 15 mg with a good increase the dose at this time As mentioned above she thinks that anxiety is much better Review of systems: Denies suicidal or homicidal ideation denies tactile auditory or visual hallucinations All of systems ROS was completed and was negative unless stated above Objective There were no vitals filed for this visit. Physical Exam Constitutional: Appearance: Normal appearance. She is normal weight. Neurological: Mental Status: She is alert. Psychiatric: Mood and Affect: Mood normal. Behavior: Behavior normal. Thought Content: Thought content normal. Judgment: Judgment normal. Current Outpatient Medications Medication Sig Dispense Refill busPIRone (Buspar) 15 MG tablet Take 1 tablet (15 mg) by mouth 2 times daily. 60 tablet 11 chlordiazePOXIDE (Librium) 25 MG capsule Take 1 capsule (25 mg) by mouth in the morning and 1 capsule (25 mg) at noon and 1 capsule (25 mg) in the evening and 1 capsule (25 mg) before bedtime. Do all this for 18 doses. 18 capsule 0 escitalopram (Lexapro) 10 MG tablet Take 1 tablet (10 mg) by mouth daily. 30 tablet 11 naltrexone (Depade) 50 MG tablet Take 1 tablet (50 mg) by mouth daily. 30 tablet 0 naltrexone ER (Vivitrol) injection Inject 4 mL (380 mg) into the shoulder, thigh, or buttocks every 28 (twenty-eight) days. 1 each 11 prazosin (Minipress) 2 MG capsule Take 1 capsule (2 mg) by mouth Nightly. 30 capsule 11 thiamine (Vitamin B-1) 250 MG tablet Take 1 tablet (250 mg) by mouth daily. 90 tablet 2 traZODone (Desyrel) 100 MG tablet Take 1 tablet (100 mg) by mouth Nightly. 30 tablet 0 No current facility-administere d medications for this visit. OARRS: Reviewed and no inconsistencies or concerns Controlled Substances Monitoring: No data to display Assessment & Plan Substance dependence disorder No diagnosis found. No orders of the defined types were placed in this encounter. @MEDORDMED@ 1-I ranged the Vivitrol for the patient has been have to call her insurance Patient to continue Lexapro and the BuSpar 2,3 depression and anxiety patient to continue the Lexapro and the BuSpar 4 for insomnia continue the trazodone Will add gabapentin 200 mg at bedtime 5 continue the prazosin for PTSD Patient Goals: 1. Continue 12-step meeting attendance (goal of 2 per week). 2. Actively communicate with sponsor. 3. Take medication as directed and report any negative side effects or missed doses. 4. Report any illicit drug use to either the protective services case worker or myself/my staff. 5. Keep medicine out of the reach of children. 6. Follow-up with recommended level of care. Interventions in Session: 1. Discussed patient's progress in their 12-step program. 2. Discussed progress in recovery and overall well-being. 3. Discussed stressors/triggers for a potential relapse & related coping mechanisms. No follow-ups on file. Patient was identified and seen today via Telehealth by agreement and consent. I used the following Telehealth technology: Audio and video capabilities. Patient location: Patient Location: Home. This patient encounter is appropriate and reasonable under the circumstances: transportation issues . The patient has been advised of the potential risks and limitations of this mode of treatment (including but not limited to the absence of in-person examination) and has agreed to be treated in a remote fashion in spite of them. Any and all of the patient's/patient's family's questions on this issue have been answered and I have made no promises or guarantees to the patient. The patient has also been advised to contact this office for worsening conditions or problems, and seek emergency medical treatment and/or call 911 if the patient deems either necessary. The patient stated that they are currently in the [facility]. If the patient is a minor, permission has been obtained by the (more content not included)... [facility] Progress Noteon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 mg/dL High 70 - 100 mg/dL [facility] Potassium [Moles/Vol] 3.5 mmol/L 3.5 - 5.1 mmol/L [facility] Sodium [Moles/Vol] 142 mmol/L 135 - 145 mmol/L [facility] Urea nitrogen (BldV) [Mass/Vol] 8 mg/dL Low 9 - 20 mg/dL [facility] ED Provider Noteon 2 ED Provider Note [facility] EMERGENCY DEPT EMERGENCY DEPARTMENT ENCOUNTER Pt Name: Mark Coon Birthdate 1980 Date of evaluation: 07/15/2021 Provider: Klaudia Bal MD CHIEF COMPLAINT Chief Complaint Patient presents with ? Alcohol Problem Pt requesting detox from alcohol. Pt states her last drink was 30 min ago. Pt states she drinks vodka daily but does not know how much she drinks. HISTORY OF PRESENT ILLNESS (Location/Symptom, Timing/Onset, Context/Setting, Quality, Duration, Modifying Factors, Severity) Note limiting factors. I wore an N95 mask for the entirety of this encounter. Does this patient come from an ECF, SNF, Rehab, Skilled Nursing or other Congregate setting: no (If yes to above patient needs a Covid-19 test) HPI Makr Coon is a 41 y.o. female who presents to the emergency department requesting for assistance with alcohol detox. She states that for the past month, she has been drinking an unknown amount of vodka per day. She states that her last drink was roughly 30 minutes prior to arrival. She denies any hallucinations. She denies any symptoms at this time Nursing Notes were reviewed. REVIEW OF SYSTEMS (2+ for level 4; 10+ for level 5) Review of Systems 14 systems reviewed and otherwise acutely negative except as in the history of present illness. PAST MEDICAL HISTORY Past Medical History: Diagnosis Date ? Alcohol abuse ? Alcohol withdrawal syndrome, uncomplicated (HCC) 01/16/2021 ? Metabolic acidosis, increased anion gap (IAG) 01/16/2021 SURGICAL HISTORY Past Surgical History: Procedure Laterality Date ? BREAST ENHANCEMENT SURGERY Bilateral 2017 ? SALPINGO-OOPHORECTOM Y CURRENT MEDICATIONS Previous Medications DESVENLAFAXINE SUCCINATE (PRISTIQ) 50 MG TB24 EXTENDED RELEASE TABLET Take 1 tablet by mouth daily TRAZODONE (DESYREL) 100 MG TABLET Take 1 tablet by mouth nightly as needed for Sleep ALLERGIES Patient has no known allergies. FAMILY HISTORY History reviewed. No pertinent family history. SOCIAL HISTORY Social History Socioeconomic History ? Marital status: Spouse name: Ross ? Number of children: 3 ? Years of education: None ? Highest education level: None Occupational History ? Occupation: unemployed Tobacco Use ? Smoking status: Former Smoker ? Smokeless tobacco: Former User Vaping Use ? Vaping Use: Never used Substance and Sexual Activity ? Alcohol use: Yes Alcohol/week: 8.0 standard drinks Types: 8 Shots of liquor per week ? Drug use: Not Currently ? Sexual activity: None Other Topics Concern ? None Social History Narrative ? None Social Determinants of Health Financial Resource Strain: ? Difficulty of Paying Living Expenses: Not on file Food Insecurity: ? Worried About Running Out of Food in the Last Year: Not on file ? Ran Out of Food in the Last Year: Not on file Transportation Needs: ? Lack of Transportation (Medical): Not on file ? Lack of Transportation (Non-Medical): Not on file Physical Activity: ? Days of Exercise per Week: Not on file ? Minutes of Exercise per Session: Not on file Stress: ? Feeling of Stress : Not on file Social Connections: ? Frequency of Communication with Friends and Family: Not on file ? Frequency of Social Gatherings with Friends and Family: Not on file ? Attends Shinto Services: Not on file ? Active Member of Clubs or Organizations: Not on file ? Attends Club or Organization Meetings: Not on file ? Marital Status: Not on file Intimate Partner Violence: ? Fear of Current or Ex-Partner: Not on file ? Emotionally Abused: Not on file ? Physically Abused: Not on file ? Sexually Abused: Not on file Housing Stability: ? Unable to Pay for Housing in the Last Year: Not on file ? Number of Places Lived in the Last Year: Not on file ? Unstable Housing in the Last Year: Not on file SCREENINGS PHYSICAL EXAM (up to 7 for level 4, 8 or more for level 5) ED Triage Vitals [07/15/21 2110] BP Temp Temp Source Pulse Resp SpO2 Height Weight 123/83 98.1 ?F (36.7 ?C) Oral 110 16 95 % 5' 6 (1.676 m) 130 lb (59 kg) Physical Exam Vitals and nursing note reviewed. Constitutional: General: She is not in acute distress. Appearance: She is not ill-appearing or toxic-appearing. HENT: Head: Normocephalic and atraumatic. Nose: Nose normal. Mouth/Throat: Mouth: Mucous membranes are moist. Pharynx: Oropharynx is clear. Eyes: Extraocular Movements: Extraocular movements intact. Pupils: Pupils are equal, round, and reactive to light. Cardiovascular: Rate and Rhythm: Regular rhythm. Tachycardia present. Pulses: Normal pulses. Heart sounds: Normal heart sounds. No murmur heard. Pulmonary: Effort: Pulmonary effort is normal. Breath sounds: Normal breath sounds. No wheezing, rhonchi or rales. Abdominal: General: Abdomen is flat. There is no distension. Palpations: Abdomen is soft. There is no mass. Tenderness: There (more content not included)... Normal [facility] Ethanolon 07-15-2021 Ethanol Lvl 0.292 g/dL High 0.000 - 0.010 g/dL [facility] Comment on above: NOTE: This result is for medical treatment only. Analysis performed using non-forensic procedures. HCG Qualitative, Serumon hCG Qual Negative [facility] Comment on above: Reference Range: NEG ATIVE Effective 08/27/2019, the reference interval for the qualitative test has been updated. This test detects hCG at concentrations of 10 mIU/L or greater in serum. Test Performed by [facility], [address] [place] [address] [facility] No Panel Informationon 07-15 Interpretation and review of laboratory results Abnormal [facility] Test Performed by [facility], [address] [place] [address] [facility] Salicylateon 07-15-2021 Salicylate Lvl <1.0 0.0 - 20.0 mg/dL [facility] Test Performed by [address] LAB [facility] Add On Lab TestOrdered By: Erick Roberson on 01-16-2021 Add On Accepted [facility] Work Phone: Comment on above: Specimen available & acceptable for analysis. Add on test from HISon 01-16 Add on test from HIS Accepted Normal [facility] Comment on above: Result Comment: Spec imen available & acceptable for analysis. Performed By: #### A DDON #### [address] [id number] COVID-19Ordered By: Justice simms on 01-16-2021 SARS-CoV-2 (COVID-19) RNA RAY+probe Ql (Unsp spec) Not detected Not Detected [facility] Work Phone: Comment on above: Not Detected. Expected Result: Not Detected _ Real-time, RT-PCR performed on the [employer] System by the [facility]. Negative results do not preclude SARS-CoV-2 infection and should not be used as the sole basis for treatment or other patient management decisions. This assay was developed by [employer] and distributed under an Emergency Use Authorization (EUA) granted by the FDA for the qualitative detection of SARS-CoV-2 nucleic acid. Test Performed by [facility], [address] [place] [id number] Comp Metabolic Panelon 01-16 ALP [Catalytic activity/Vol] 60 U/L Normal 38-126 [facility] Comment on above: Performed By: #### E TOH4, HEMDF, CMP3, MG3 #### [address] ALT [Catalytic activity/Vol] 32 U/L Normal 0-34 [facility] Comment on above: Result Comment: The ALT test is performed by an updated assay method. Please note that the reference intervals have been changed and are now sex specific. Performed By: #### E TOH4, HEMDF, CMP3, MG3 #### [address] Anion gap [Moles/Vol] 14 mmol/L High 3-13 [facility] Comment on above: Performed By: #### E TOH4, HEMDF, CMP3, MG3 #### [address] [place], [place] AST [Catalytic activity/Vol] 30 U/L Normal 15-46 [facility] Comment on above: Performed By: #### E TOH4, HEMDF, CMP3, MG3 #### [address] Calcium [Mass/Vol] 9.7 mg/dL Normal 8.4-10.4 [facility] Comment on above: Performed By: #### E TOH4, HEMDF, CMP3, MG3 #### [address] CO2 [Moles/Vol] 20 mmol/L Low 22-30 [facility] Comment on above: Performed By: #### E TOH4, HEMDF, CMP3, MG3 #### [facility] [address] [place], [place] Glucose [Mass/Vol] 85 mg/dL Normal 70-100 [facility] Comment on above: Performed By: #### E TOH4, HEMDF, CMP3, MG3 #### [address] [place], [place] Protein [Mass/Vol] 7.6 g/dL Normal 6.3-8.2 [facility] Comment on above: Performed By: #### E TOH4, HEMDF, CMP3, MG3 #### [address] Urea nitrogen [Mass/Vol] 4 mg/dL Low 7-20 [facility] Comment on above: Performed By: #### E TOH4, HEMDF, CMP3, MG3 #### [place] [address] [address] [place], [place] Bilirubin [Mass/Vol] 0.3 mg/dL Normal 0.2-1.3 [facility] Comment on above: Performed By: #### E TOH4, HEMDF, CMP3, MG3 #### [address] [place], [place] Creatinine [Mass/Vol] 0.65 mg/dL Normal 0.52-1.25 [facility] Comment on above: Performed By: #### E TOH4, HEMDF, CMP3, MG3 #### [address] eGFR OTHER > 90.0 Normal >60 [facility] Comment on above: Result Comment: KDIG O guidelines provide the following GFR categories: Stage GFR(ml/min/1.73 m2) Terms G1 >=90 Normal or high G2 60-89 Mildly decreased* G3a 45-59 Mildly to moderately decreased G3b 30-44 Moderately to severely decreased G4 15-29 Severely decreased G5 <15 Kidney failure *Relative to young adult level. In the absence of evidence of kidney damage, neither GFR category G1 nor G2 fulfill the criteria for CKD. The CKD-EPI equation is validated in individuals 18 years of age and older. Currently the best equation for estimating glomerular filtration rate (GFR) from serum creatinine in children is the Bedside Willard equation. It is less accurate in patients with extremes of muscle mass, restriction of dietary protein, ingestion of creatine, extra-renal metabolism of creatinine, or treatment with medications that affect renal tubular creatinine secretion. Performed By: #### E TOH4, HEMDF, CMP3, MG3 #### [address] GFR/1.73 sq M.predicted among blacks MDRD (S/P/Bld) [Vol rate/Area] mL/min/{1.73_m2} Normal >60 [facility] Comment on above: Performed By: #### E TOH4, HEMDF, CMP3, MG3 #### [address] Potassium [Moles/Vol] 4.0 mmol/L Normal 3.5-5.1 [facility] Comment on above: Performed By: #### E TOH4, HEMDF, CMP3, MG3 #### [address] Albumin [Mass/Vol] 4.8 g/dL Normal 3.5-5.0 [facility] Comment on above: Performed By: #### E TOH4, HEMDF, CMP3, MG3 #### [address] Chloride [Moles/Vol] 111 mmol/L High 98-107 [facility] Comment on above: Performed By: #### E TOH4, HEMDF, CMP3, MG3 #### [address] Sodium [Moles/Vol] 145 mmol/L Normal 135-145 [facility] Comment on above: Performed By: #### E TOH4, HEMDF, CMP3, MG3 #### [address] [id number] Comprehensive Metabolic Pane lOrdered By: Justice Tom on 01-16-2021 Albumin [Mass/Vol] 4.8 g/dL 3.5 - 5.0 g/dL [facility] Work Phone: ALP (Bld) [Catalytic activity/Vol] 60 U/L 38 - 126 U/L [facility] Work Phone: ALT [Catalytic activity/Vol] 32 U/L 0 - 34 U/L [facility] Work Phone: Comment on above: The ALT test is perf ormed by an updated assay method. Please note that the reference intervals have been changed and are now sex specific. Anion gap [Moles/Vol] 14 mmol/L High 3 - 13 mmol/L [facility] Work Phone: AST [Catalytic activity/Vol] 30 U/L 15 - 46 U/L [facility] Work Phone: Bilirubin [Mass/Vol] 0.3 mg/dL 0.2 - 1 .3 mg/dL [facility] Work Phone: Calcium [Mass/Vol] 9.7 mg/dL 8.4 - 10. 4 mg/dL [facility] Work Phone: Chloride [Moles/Vol] 111 mmol/L High 98 - 10 7 mmol/L [facility] Work Phone: CO2 [Moles/Vol] 20 mmol/L Low 22 - 30 mmol/L [facility] Work Phone: Creatinine [Mass/Vol] 0.65 mg/dL 0.52 - 1.25 mg/dL [facility] Work Phone: EGFR IF NonAfrican Indonesian >90.0 >60 mL/min [facility] Work Phone: Comment on above: KDIGO guidelines pro vide the following GFR categories: Stage GFR(ml/min/1.73 m2) Terms G1 >=90 Normal or high G2 60-89 Mildly decreased* G3a 45-59 Mildly to moderately decreased G3b 30-44 Moderately to severely decreased G4 15-29 Severely decreased G5 <15 Kidney failure *Relative to young adult level. In the absence of evidence of kidney damage, neither GFR category G1 nor G2 fulfill the criteria for CKD. The CKD-EPI equation is validated in individuals 18 years of age and older. Currently the best equation for estimating glomerular filtration rate (GFR) from serum creatinine in children is the Bedside Willard equation. It is less accurate in patients with extremes of muscle mass, restriction of dietary protein, ingestion of creatine, extra-renal metabolism of creatinine, or treatment with medications that affect renal tubular creatinine secretion. Free PSA/Total PSA [Mass fraction] 7.6 g/dL 6.3 - 8.2 g/dL [facility] Work Phone: GFR/1.73 sq M.predicted among blacks MDRD (S/P/Bld) [Vol rate/Area] mL/min/{1.73_m2} >60 mL/min [facility] Work Phone: Glucose [Mass/Vol] 85 mg/dL 70 - 100 mg/dL [facility] Work Phone: Potassium [Moles/Vol] 4.0 mmol/L 3.5 - 5.1 mmol/L [facility] Work Phone: Sodium [Moles/Vol] 145 mmol/L 135 - 145 mmol/L [facility] Work Phone: Urea nitrogen (BldV) [Mass/Vol] 4 mg/dL Low 7 - 20 mg/dL [facility] Work Phone: Drugs of Abuseon 01-16-2021 Phencyclidine (PCP), Ur Negative Normal S [facility] Comment on above: Result Comment: The expected value for all of the drugs listed above is Negative. The following drugs or drug groups have been screened for by Immunoassay at the following thresholds: Amphetamine class (1000 ng/mL), Barbiturates (200 ng/mL), Benzodiazepines (200 ng/mL), Cocaine (300 ng/mL), Methadone (300 ng/mL), Opiates (300 ng/mL), Oxycodone (100 ng/mL), and PCP (25 ng/mL). NOTE: These results are for medical treatment only. Analysis performed using non-forensic procedures. POSITIVE results are NOT confirmed by a more specific alternative method unless requested. If confirmation is needed, request confirmation under separate order. Performed By: #### H LOGAN SOSAU, DRGA4 #### [facility] [address] [facility], [place] Methadone, Ur Negative Normal [facility] Comment on above: Performed By: #### H SHEILA, LOGANU, DRGA4 #### [place] [address] [address] [facility], [place] Opiates, Ur Negative Normal [facility] Comment on above: Performed By: #### H CGADONIS, LOGANU, DRGA4 #### [place] [address] [address] [facility], [place] Benzodiazepines, Ur Negative Normal [facility] Comment on above: Performed By: #### H TRANG SOSA, DRGA4 #### [place] [address] [address] [facility], [place] Cocaine, Ur Negative Normal [facility] Comment on above: Performed By: #### H TRANG SOSA, DRGA4 #### [place] [address] [address] [facility], [place] Barbiturates, Ur Negative Normal [facility] Comment on above: Performed By: #### H TRANG SOSA, DRGA4 #### [place] [address] [address] [facility], [place] Amphetamines, Ur Negative Normal [facility] Comment on above: Performed By: #### H TRANG SOSA, DRGA4 #### [place] [address] [address] [place], [place] Oxycodone/Oxymorphine,U r Negative Normal [facility] Comment on above: Performed By: #### H TRANG SOSA, DRGA4 #### [place] [address] [address] [facility], [place] ED Provider Noteon 1 ED Provider Note Patient, Mark Coon, is seen and examined in conjunction with advanced practice practitioner. I independently performed history, physical exam, admitted all diagnostic treatment and disposition decisions. I wore a surgical mask for the entirety of this encounter. In brief their history revealed 40-year-old female with history of alcohol abuse presenting for detox. Patient explains that she would like to stop drinking. She had a streak of not drinking in 18 months but then recently relapsed. She was feeling anxious and tachycardic prior to treatment here and is now feeling much better.. Their focused exam: GENERAL: Awake, alert, no apparent distress. Sleeping comfortably. HEENT: Atraumatic, normocephalic. PERRL. EOMI. NECK: Trachea midline. Supple. CV: Regular rate and rhythm, no murmurs, rubs or gallops RESPIRATORY: Clear breath sounds bilaterally. No respiratory distress. No accessory muscle use. GI: Abdomen soft, nontender throughout. No rigidity, rebound or guarding. NEURO: Alert and oriented x 3. Follows commands. Normal motor and sensation throughout. No focal deficits. EXTREMITIES: No deformities noted. No palpable bony injury. SKIN: Warm, dry, no lesions noted PSYCH: Normal mood and affect ED course: 40-year-old female presenting for alcohol detox. Vitals currently within normal limits with blood pressure of 90s over 60s. Patient sleep and was woken up for my exam. She has already undergone laboratory work-up which is grossly unremarkable. Her alcohol level on arrival was 0.284. She has received Ativan as well as IV fluids. Plan admit for alcohol withdrawal. All diagnostic, treatment, and disposition decisions were made by myself in conjunction with the mid-level provider. For all further details of the patient's emergency department visit, please see the advance practice provider's documentation. Varun Ortiz, DO 01/16/21 0314 Normal [facility] ETHYLENE GLYCOLOrdered By: Erick Roberson on 01-16-2021 Ethylene Glycol Lvl Not detected mg/dL [facility] Work Phone: Comment on above: Reporting limit 5 mg/dL Test Performed by [facility], [address] [place] [id number] [facility] Work Phone: [facility] Work Phone: EthanolOrdered By: Justice Saldivar ace on 01-16-2021 Ethanol Lvl 0.284 g/dL High 0.000 - 0.010 g/dL [facility] Work Phone: Comment on above: NOTE: This result is for medical treatment only. Analysis performed using non-forensic procedures. Ethanol Serum/Plasmaon 01-16 Ethanol-Serum/Plasma 0.284 g/dL High 0.000-0.010 [facility] Comment on above: Result Comment: NOTE : This result is for medical treatment only. Analysis performed using non-forensic procedures. Performed By: #### E TOH4, HEMDF, CMP3, MG3 #### [facility] [address] [place], [place] Ethylene Glycolon 01-16-2021 Ethylene Glycol Not detected Normal [facility] Comment on above: Result Comment: Reporting limit 5 mg/dL Performed By: #### E GLYC, VOLS #### [facility] [address] [place], [place] Fentanyl Screen, Urineon Fentanyl Screen, Urn Negative Normal Negative [facility] Comment on above: Result Comment: Fent anyl has been screened for by Immunoassay at a 2ng/ml threshold. POSITIVE results are not confirmed by a more specific alternative method unless requested. If confirmation is needed, request confirmation under separate order. NOTE: These results are for medical treatment only. Analysis performed using non-forensic procedures. Performed By: #### H CGUR, FENTU, DRGA4 #### [facility] [address] [place], [place] Fentanyl, UrineOrdered By: Gloria Tom on 01-16-2021 Fentanyl Negative Negative NA [facility] Work Phone: Comment on above: Fentanyl has been sc reened for by Immunoassay at a 2ng/ml threshold. POSITIVE results are not confirmed by a more specific alternative method unless requested. If confirmation is needed, request confirmation under separate order. NOTE: These results are for medical treatment only. Analysis performed using non-forensic procedures. HCG,Urine Qualon 01-16-2021 Beta HCG ( test) Ql (U) Negative Normal Negative [facility] Comment on above: Result Comment: Plea se note: Very dilute urine specimens, as indicated by a low specific gravity, may not contain malt liquors sales representative levels of hCG. If is still suspected, a first morning urine specimen should be collected 48 hours later and tested. is the most common reason for HCG in urine, although choriocarcinoma, hydatidiform mole, and certain nontropho- blastic malignancies also result in detectable urinary HCG levels. Sensitivity = 20mIU/mL. Performed By: #### H TRANG SOSA DRGA4 #### [facility] [address] [place] [id number] Hemogram (CBC) w/Auto DiffOr dered By: Justice Tom on 01-16-2021 Absolute Baso # 0.1 10*3/uL 0.0 - 0.2 10*3/uL [facility] Work Phone: Absolute Neut # 6.1 10*3/uL 1.8 - 7.0 10*3/uL [facility] Work Phone: Basophils/100 WBC (Bld) 0.8 % 0.0 - 2.0 % [facility] Work Phone: Eosinophils (Bld) [#/Vol] 0.0 10*3/uL 0.0 - 0.5 10*3/uL [facility] Work Phone: Eosinophils/100 WBC (Bld) 0.2 % Low 1.0 - 6.0 % [facility] Work Phone: Granulocytes/100 WBC (Bld) 62.5 % 40.0 - 80.0 % [facility] Work Phone: Hematocrit (Bld) [Volume fraction] 42.5 % 35.0 - 47.0 % [facility] Work Phone: Hemoglobin.gastrointest inal spec 1 Ql (Stl) 14.5 g/dL 11.7 - 16.0 g/dL [facility] Work Phone: Interpretation and review of laboratory results Abnormal [facility] Work Phone: Lymphocytes (Bld) [#/Vol] 3.2 10*3/uL 1.0 - 4.3 10*3/uL [facility] Work Phone: Lymphocytes/100 WBC (Bld) 32.2 % 20.0 - 40.0 % [facility] Work Phone: MCH (RBC) [Entitic mass] 33.0 pg 26.0 - 34.0 pg [facility] Work Phone: MCHC (RBC) [Mass/Vol] 34.2 % 32.0 - 36.0 % [facility] Work Phone: MCV (RBC) [Entitic vol] 96.5 fL 79.0 - 98.0 fL [employer] Work Phone: Monocytes (Bld) [#/Vol] 0.4 10*3/uL 0.0 - 0.8 10*3/uL [employer] Work Phone: Monocytes/100 WBC (Bld) 4.3 % 2.0 - 10.0 % [employer] Work Phone: Platelet distribution width (Bld) [Ratio] 13.9 % 11.5 - 14.5 % [employer]ear Phone: Platelet mean volume (Bld) [Entitic vol] 8.3 fL 7.4 - 10.4 fL [employer] Work Phone: Platelets (Bld) [#/Vol] 281 10*3/uL 140 - 440 10*3/uL [employer] Work Phone: RBC (Bld) [#/Vol] 4.40 10*6/uL 3.80 - 5.2 0 10*6/uL [employer] Work Phone: WBC (Bld) [#/Vol] 9.8 10*3/uL 3.6 - 10.7 10*3/uL [employer] Work Phone: [employer] Work Phone: Hemogram w/ Autodiffon 01-16 Abs Baso Cnt 0.1 10*3/uL Normal 0.0-0.2 [facility] Comment on above: Performed By: #### E TOH4, HEMDF, CMP3, MG3 #### [facility] [address] [place] [address] Abs Neutrophile Cnt 6.1 10*3/uL Normal 1.8-7.0 [facility] Comment on above: Performed By: #### E TOH4, HEMDF, CMP3, MG3 #### [address] [place] [address] Basophils/100 WBC (Bld) 0.8 % Normal 0.0-2.0 S [facility] Comment on above: Performed By: #### E TOH4, HEMDF, CMP3, MG3 #### [address] [place], [place] Eosinophils (Bld) [#/Vol] 0.0 10*3/uL Normal 0.0-0.5 [facility] Comment on above: Performed By: #### E TOH4, HEMDF, CMP3, MG3 #### [address] Eosinophils/100 WBC (Bld) 0.2 % Low 1.0-6.0 [facility] Comment on above: Performed By: #### E TOH4, HEMDF, CMP3, MG3 #### [address] Erythrocyte distribution width (RBC) [Ratio] 13.9 % Normal 11.5-14.5 [facility] Comment on above: Performed By: #### E TOH4, HEMDF, CMP3, MG3 #### [address] Granulocytes/100 WBC (Bld) 62.5 % Normal 40.0-80.0 [facility] Comment on above: Performed By: #### E TOH4, HEMDF, CMP3, MG3 #### [address] [place], [place] Hematocrit (Bld) [Volume fraction] 42.5 % Normal 35.0-47.0 [facility] Comment on above: Performed By: #### E TOH4, HEMDF, CMP3, MG3 #### [address] Hemoglobin (Bld) [Mass/Vol] 14.5 g/dL Normal 11.7-16.0 [facility] Comment on above: Performed By: #### E TOH4, HEMDF, CMP3, MG3 #### [address] [place], [place] Lymphocytes (Bld) [#/Vol] 3.2 10*3/uL Normal 1.0-4.3 [facility] Comment on above: Performed By: #### E TOH4, HEMDF, CMP3, MG3 #### [address] Lymphocytes/100 WBC (Bld) 32.2 % Normal 20.0-40.0 [facility] Comment on above: Performed By: #### E TOH4, HEMDF, CMP3, MG3 #### [address] MCH (RBC) [Entitic mass] 33.0 pg Normal 26.0-34.0 [facility] Comment on above: Performed By: #### E TOH4, HEMDF, CMP3, MG3 #### [address] MCHC 34.2 % Normal 32.0-36.0 [facility] Comment on above: Performed By: #### E TOH4, HEMDF, CMP3, MG3 #### [address] MCV (RBC) [Entitic vol] 96.5 fL Normal 79.0-98.0 S [facility] Comment on above: Performed By: #### E TOH4, HEMDF, CMP3, MG3 #### [address] [place], [place] Monocytes (Bld) [#/Vol] 0.4 10*3/uL Normal 0.0-0.8 [facility] Comment on above: Performed By: #### E TOH4, HEMDF, CMP3, MG3 #### [address] Monocytes/100 WBC (Bld) 4.3 % Normal 2.0-10.0 S [facility] Comment on above: Performed By: #### E TOH4, HEMDF, CMP3, MG3 #### [place] [address] [address] [place], [place] Platelet mean volume (Bld) [Entitic vol] 8.3 fL Normal 7.4-10.4 [facility] Comment on above: Performed By: #### E TOH4, HEMDF, CMP3, MG3 #### [place] [address] [place], [place] Platelets (Bld) [#/Vol] 281 10*3/uL Normal 140-440 [facility] Comment on above: Performed By: #### E TOH4, HEMDF, CMP3, MG3 #### [address] RBC (Bld) [#/Vol] 4.40 10*6/uL Normal 3.80-5.20 [facility] Comment on above: Performed By: #### E TOH4, HEMDF, CMP3, MG3 #### [address] [place], [place] WBC (Bld) [#/Vol] 9.8 10*3/uL Normal 3.6-10.7 [facility] Comment on above: Performed By: #### E TOH4, HEMDF, CMP3, MG3 #### [address] [phone] Magn[employer] 01-16-2021 Magnesium [Mass/Vol] 2.2 mg/dL Normal 1.6-2.3 [facility] Comment on above: Performed By: #### E TOH4, HEMDF, CMP3, MG3 #### [address] MagnesiumOrdered By: Justice fitzpatrick on 01-16-2021 Magnesium [Mass/Vol] 2.2 mg/dL 1.6 - 2 .3 mg/dL [facility] Work Phone: No Panel InformationOrdered By: Justice Tom on 01-16-2021 Test Performed by [address] [address] [facility] Work Phone: [employer] Work Phone: [employer] Work Phone: Interpretation and review of laboratory results Abnormal [facility] Work Phone: Test Performed by [facility], [address] [place] [phone] [facility] Work Phone: [facility] Work Phone: , UrineOrdered By: Justice Tom on 01-16-2021 Beta HCG ( test) Ql (U) Negative Negative NA [employer] Work Phone: Comment on above: Please note: Very di lute urine specimens, as indicated by a low specific gravity, may not contain malt liquors sales representative levels of hCG. If is still suspected, a first morning urine specimen should be collected 48 hours later and tested. is the most common reason for HCG in urine, although choriocarcinoma, hydatidiform mole, and certain nontropho- blastic malignancies also result in detectable urinary HCG levels. Sensitivity = 20mIU/mL. [employer] Work Phone: [id number] 01-16-2021 SARS-CoV-2 (COVID-19) RNA RAY+probe Ql (Unsp spec) SARS-CoV-2 --> Status: F Not Detected. Expected Result: Not Detected _ Real-time, RT-PCR performed on the [employer] System by the [facility]. Negative results do not preclude SARS-CoV-2 infection and should not be used as the sole basis for treatment or other patient management decisions. This assay was developed by [employer] and distributed under an Emergency Use Authorization (EUA) granted by the FDA for the qualitative detection of SARS-CoV-2 nucleic acid. Expected Result: Not Detected _ Real-time, RT-PCR performed on the [employer] System by the [facility] (PRIMP) Service. Negative results do not preclude SARS-CoV-2 infection and should not be used as the sole basis for treatment or other patient management decisions. This assay was developed by [employer] and distributed under an Emergency Use Authorization (EUA) granted by the FDA for the qualitative detection of SARS-CoV-2 nucleic acid. Normal [facility] Comment on above: Performed By: #### E TOH4, HEMDF, CMP3, MG3 #### [facility] [address] [place] [address] Urine Drug ScreenOrdered By: Justice Tom on 01-16-2021 Amphetamines, urine Negative [facility] Work Phone: Barbiturates, Ur Negative [facility] Work Phone: Benzodiazepine Ur Qual Negative [facility] Work Phone: Cocaine Metabolites, Ur Negative [facility] Work Phone: Methadone, Urine Negative [facility] Work Phone: Opiates, Urine Negative [facility] Work Phone: Oxycodone Screen, Ur Negative [facility] Work Phone: PCP, Urine Negative [facility] Work Phone: Comment on above: The expected value f or all of the drugs listed above is Negative. The following drugs or drug groups have been screened for by Immunoassay at the following thresholds: Amphetamine class (1000 ng/mL), Barbiturates (200 ng/mL), Benzodiazepines (200 ng/mL), Cocaine (300 ng/mL), Methadone (300 ng/mL), Opiates (300 ng/mL), Oxycodone (100 ng/mL), and PCP (25 ng/mL). NOTE: These results are for medical treatment only. Analysis performed using non-forensic procedures. POSITIVE results are NOT confirmed by a more specific alternative method unless requested. If confirmation is needed, request confirmation under separate order. VOLATILE PANEL, SERUMOrdered By: Milvia Roberson on 01-16-2021 Acetone, Serum Quant Not detected 0.0 - 2 0.0 mg/dL [facility] Work Phone: Comment on above: Toxic>20 Reporting Limit 5 mg/dL NOTE:These results are for medical treatment only. Analysis performed using non-forensic procedures. Ethanol [Mass/Vol] 0.184 mg/dL [facility] Work Phone: Comment on above: Reporting limit 0.01g/dL NOTE:These results are for medical treatment only. Analysis performed using non-forensic procedures. Isopropanol Not detected mg/dL [facility] Work Phone: Comment on above: Toxic>150 Reporting Limit 5 mg/dL NOTE:These results are for medical treatment only. Analysis performed using non-forensic procedures. METHANOL Not detected [employer] Work Phone: Comment on above: Toxic >20 mg/dL Reporting Limit 5 mg/dL NOTE:These results are for medical treatment only. Analysis performed using non-forensic procedures. Test Performed by [facility], [address] [place] [id number] [facility] Work Phone: [employer] Work Phone: Volatile Panel,Serumon 01-16 Acetone,Serum Not detected Normal 0.0-20.0 [facility] Comment on above: Result Comment: Toxi c>20 Reporting Limit 5 mg/dL NOTE:These results are for medical treatment only. Analysis performed using non-forensic procedures. Performed By: #### E GLYC, VOLS #### [facility] [address] [place] [phone] Ethanol,Serum 0.184 Normal [facility] Comment on above: Result Comment: Reporting limit 0.01g/dL NOTE:These results are for medical treatment only. Analysis performed using non-forensic procedures. Performed By: #### E GLYC, VOLS #### [facility] [address] [place] [phone] Isopropanol,Serum Not detected Normal [facility] Comment on above: Result Comment: Toxi c>150 Reporting Limit 5 mg/dL NOTE:These results are for medical treatment only. Analysis performed using non-forensic procedures. Performed By: #### E GLYC, VOLS #### [facility] [address] [place] [phone] Methanol,Serum Not detected Normal [facility] Comment on above: Result Comment: Toxic >20 mg/dL Reporting Limit 5 mg/dL NOTE:These results are for medical treatment only. Analysis performed using non-forensic procedures. Performed By: #### E GLYC, VOLS #### [facility] [address] [place] [phone] Vital Signs Date Time Vital Sign Value Performing Clinician Faci lity 07-15-2021 22:51-0500 Diastolic blood pressure 80 mm[Hg] BLAINE Bal MD Work Phone: [facility] 07-15-2021 22:51-0500 Heart rate 105 /min BLAINE Bal MD Work Phone: [facility] 07-15-2021 22:51-0500 Respiratory rate 18 /min BLAINE Bal MD Work Phone: [facility] 07-15-2021 22:51-0500 SaO2% (BldA) [Mass fraction] 96 % BLAINE Bal MD Work Phone: [facility] 07-15-2021 22:51-0500 Systolic blood pressure 122 mm[Hg] BLAINE Bal MD Work Phone: [facility] 07-15-2021 21:10-0500 Body height 167.6 cm BLAINE Bal MD Work Phone: [facility] 07-15-2021 21:10-0500 Body mass index (BMI) [Ratio] 20.98 kg/m2 BLAINE Bal MD Work Phone: [facility] 07-15-2021 21:10-0500 Body temperature 98.1 [degF] BLAINE Bal MD Work Phone: [facility] 07-15-2021 21:10-0500 Body weight 58.97 kg BLAINE Bal MD Work Phone: [facility] 01-16-2021 15:00-0400 Heart rate 72 /min Varun Nesheim DO [facility] Work Phone: 01-16-2021 14:58-0400 Body temperature 98.49 [degF] Varun Nesheim DO Work Phone: [facility] Work Phone: 01-16-2021 14:58-0400 Diastolic blood pressure 64 mm[Hg] Varun Nesheim DO Work Phone: [facility] Work Phone: 01-16-2021 14:58-0400 Respiratory rate 12 /min Varun Nesheim DO Work Phone: [facility] Work Phone: 01-16-2021 14:58-0400 SaO2% (BldA) [Mass fraction] 100 % Varun Nesheim DO Work Phone: [facility] Work Phone: 01-16-2021 14:58-0400 Systolic blood pressure 119 mm[Hg] Varun Nesheim DO Work Phone: [facility] Work Phone: Encounters Encounter Date Encounter Type Care Provider Facility Start: 10-27-2023 End: 10-28-2023 ambulatory [facility] Start: 10-01-2023 End: 10-01-[address] [facility] Start: 10-01-2023 End: 10-01-2023 Office outpatient visit 25 minutes Markos Meyers MD Work Phone: [facility] Comment on above: Alcohol use disorder ; Depression, unspecified depression type; RAMEZ (generalized anxiety disorder); Insomnia, unspecified type; PTSD (post-traumatic stress disorder) Start: 09-29-2023 End: 09-30-2023 ambulatory [facility] Start: 09-18-2023 Telephone encounter Markos espinoza MD Work Phone: [facility] Comment on above: Vivitrol Start: 09-17-2023 End: 09-17-2023 ambulatory MARKOS LAMINEMOIL [facility] Start: 09-17-2023 End: 09-17-2023 Office outpatient visit 25 minutes Markos Meyers MD Work Phone: [facility] Comment on above: Alcohol use disorder ; Depression, unspecified depression type; RAMEZ (generalized anxiety disorder); Insomnia, unspecified type; PTSD (post-traumatic stress disorder) Start: 09-15-2023 End: 09-16-2023 ambulatory [facility] Start: 09-15-2023 End: 09-15-2023 Subsequent hospital visit by physician Louie Winter MD Work Phone: [facility] Comment on above: Alcohol use disorder , severe, dependence (HCC) Start: 09-04-2023 End: 09-05-2023 ambulatory MARKOS MEYERS [facility] Start: 09-04-2023 End: 09-04-2023 Office outpatient new 45 minutes Markos Meyers MD Work Phone: [facility] Comment on above: Alcohol use disorder (Primary Dx); Depression, unspecified depression type; RAMEZ (generalized anxiety disorder); Insomnia, unspecified type; PTSD (post-traumatic stress disorder) Start: 07-15-2021 End: 07-16-2021 Evaluation and management of inpatient Klaudia Bal MD Work Phone: [facility] Emergency Dept Comment on above: Alcohol abuse (Prima ry Dx) Start: 01-15-2021 End: 01-16-2021 Evaluation and management of inpatient Varun Ortiz DO Work Phone: [facility] 5W TELEMETRY Comment on above: Alcohol dependence w ith uncomplicated intoxication (HCC) (Primary Dx) Procedures Date Procedure Procedure Detail Performing Clinician Start: 07-15-2021 Assay of acetaminophen Klaudia Bal MD Work Phone: Start: 07-15-2021 Assay of ethanol J Dante Bal MD Work Phone: Start: 07-15-2021 Assay of salicylate J Leonard Bal MD Work Phone: Start: 07-15-2021 Comprehensive metabo lic panel Klaudia Bal MD Work Phone: Start: 07-15-2021 COVID-19 Klaudia Bal MD Work Phone: Start: 01-16-2021 ADD ON LAB TEST Milvia Roberson MD Work Phone: Start: 01-16-2021 Assay of ethylene glycol Milvia Roberson MD Work Phone: Start: 01-16-2021 VOLATILE PANEL, SERUM M yola Roberson MD Work Phone: Start: 01-16-2021 Assay of ethanol Justice salguero Rambus Work Phone: Start: 01-16-2021 Comprehensive metabo lic panel Justice Tom [employer] Work Phone: Start: 01-16-2021 COVID-19 Justice marte [employer] Work Phone: Start: 01-16-2021 Drug screen class list a Justice Tom Rambus Work Phone: Start: 01-16-2021 Drug tst prsmv instr mnt chem analyzers pr date Justice Tom [employer] SCIENCE INSTRUCTOR [employer] Work Phone: Start: 01-16-2021 Urine test visual color cmprsn meths Justice Tom [employer] Work Phone: Plan of Treatment Date Care Activity Detail Author Start: 2038 RSV Immunization age d 60 or older (1 - 1-dose 60+ series) RSV Immunization aged 60 or older (1 - 1-dose 60+ series) [facility] Start: 10-24-2028 DTaP/Tdap/Td Vaccine s (2 - Td or Tdap) DTaP/Tdap/Td Vaccines (2 - Td or Tdap) [facility] Start: 2028 Zoster Vaccines (1 of 2) Zoste r Vaccines (1 of 2) [facility] Start: 03-16-2024 Depression Monitoring Depression Mon itoring [facility] Start: 03-16-2024 Depresssion Monitoring Depresssion M onitoring [facility] Start: 02-15-2024 Influenza vaccination Influenz a Vaccine (Season Ended) [facility] Start: 10-01-2023 End: 10-01-2023 Telemedicine consultation with patient 10/01/2023 2:15 PM EDT Telemedicine [facility] [address] [place] [address] Markos Meyers MD [address] [place] [address] [facility] Start: 10-01-2023 End: 09-30-2024 Comprehensive metabolic 1998 panel - Serum or Plasma Comprehensive metabolic panel Lab Routine Alcohol use disorder Expected: 10/01/2023 (Approximate), Expires: 09/30/2024 [facility] Work Phone: Comment on above: Expected: 10/01/2023 (Approximate), Expires: 09/30/2024 Start: 09-17-2023 End: 09-17-2023 Telemedicine consultation with patient 09/17/2023 2:30 PM EDT Telemedicine [facility] [address] [facility] [address] [place] [phone] Markos Meyers MD [address] [place] [address] [facility] Start: 09-10-2023 End: 09-10-2023 Patient encounter procedure 09/10/2023 9:30 AM EDT Appointment [facility] [address] [place] [phone] Louie Winter MD [address] [place] [phone] Jess Thomas [facility] Start: 09-04-2023 End: 09-03-2024 CBC W Auto Differential panel - Blood CBC auto differential Lab Routine Alcohol use disorder Expected: 09/04/2023 (Approximate), Expires: 09/03/2024 [facility] Comment on above: Expected: 09/04/2023 (Approximate), Expires: 09/03/2024 Start: 09-04-2023 End: 09-03-2024 Cobalamin (Vitamin B12) [Mass/volume] in Serum or Plasma Vitamin B12 Lab Routine Alcohol use disorder Expected: 09/04/2023 (Approximate), Expires: 09/03/2024 [facility] Comment on above: Expected: 09/04/2023 (Approximate), Expires: 09/03/2024 Start: 09-04-2023 End: 09-03-2024 Comprehensive metabolic 1998 panel - Serum or Plasma Comprehensive metabolic panel Lab Routine Alcohol use disorder Expected: 09/04/2023 (Approximate), Expires: 09/03/2024 [facility] Work Phone: Comment on above: Expected: 09/04/2023 (Approximate), Expires: 09/03/2024 Start: 09-04-2023 End: 09-03-2024 Follicle stimulating hormone Follicle stimulating hormone Lab Routine Alcohol use disorder Expected: 09/04/2023 (Approximate), Expires: 09/03/2024 [facility] Comment on above: Expected: 09/04/2023 (Approximate), Expires: 09/03/2024 Start: 09-04-2023 End: 09-03-2024 Thyrotropin [Units/volume] in Serum or Plasma TSH Lab Routine Alcohol use disorder Expected: 09/04/2023 (Approximate), Expires: 09/03/2024 [facility] Comment on above: Expected: 09/04/2023 (Approximate), Expires: 09/03/2024 Start: 02-14-2023 COVID-19 Vaccine ( season) COVID-19 Vaccine ( season) [facility] Start: 02-14-2023 Influenza vaccination Influenza Vacc ine (#1) [facility] Start: 02-14-2021 Influenza vaccination Flu vaccine (# 1) [facility] Start: 2018 Screening for malign ant neoplasm of breast Mammogram [facility] Start: 2008 Screening for malign ant neoplasm of cervix [facility] Start: 1999 Screening for malign ant neoplasm of cervix Pap Smear [facility] Start: 1997 Hepatitis A Vaccines (1 of 2 - Risk 2-dose series) Hepatitis A Vaccines (1 of 2 - Risk 2-dose series) [facility] Start: 1997 Hepatitis B Vaccines (1 of 3 - 19+ 3-dose series) Hepatitis B Vaccines (1 of 3 - 19+ 3-dose series) [facility] Start: 1996 Hepatitis C screening Hepatitis C Sc reening [facility] Start: 1990 COVID-19 Vaccine (1) COVID-19 Vaccin e (1) [facility] Work Phone: Start: 1990 Depresssion Monitoring Depresssion M onitoring [facility] Start: 1984 Pneumococcal Vaccine : Pediatrics (0 to 5 Years) and At-Risk Patients (6 to 64 Years) (1 of 2 - PCV) Pneumococcal Vaccine: Pediatrics (0 to 5 Years) and At-Risk Patients (6 to 64 Years) (1 of 2 - PCV) [facility] Start: 1983 COVID-19 Vaccine (1) COVID-19 Vaccin e (1) [facility] Start: 1979 MMR Vaccines (1 of 1 - Standard series) MMR Vaccines (1 of 1 - Standard series) [facility] Start: 1978 HIV screening HIV Screening [facility] Start: 1978 Lipid panel Lipid Panel [facility] Start: 1978 Screening for malign ant neoplasm of colon [facility] CBC W Auto Different ial panel - Blood CBC auto differential Lab Routine Daily until discontinued starting 01/17/2021 [facility] Work Phone: Comment on above: Daily until disconti nued starting 01/17/2021 Comprehensive Metabo lic Panel w/ Reflex to MG Comprehensive Metabolic Panel w/ Reflex to MG Lab Routine Daily until discontinued starting 01/17/2021 [facility] Work Phone: Comment on above: Daily until disconti nued starting 01/17/2021 Oxygen therapy [[facility] Data Set] Initiate Oxygen Therapy Protocol Respiratory Care Routine Daily until discontinued starting 01/16/2021 [facility] Work Phone: Comment on above: Daily until disconti nued starting 01/16/2021 End: 07-16-2021 URINE DRUG SCREEN [facility] Work Phone: Comment on above: One Time for 1 Occur rences starting 07/16/2021 until 07/16/2021 Once for 1 Occurrenc es starting 07/16/2021 until 07/16/2021 Immunizations Immunization Date Immunization Notes Care Provider Fa val 10-24-2018 tetanus toxoid, redu cyndi diphtheria toxoid, and acellular pertussis vaccine, adsorbed Varun Nesheim DO Work Phone: [facility] Work Phone: Payers Date Payer Category Payer Unknown [id number] 2018 Unknown ИРИНА MANTILLA S ИРИНА [employer] [id number] 2018-Present [address] [place] [address] Commercial [id number] Social History Date Type Detail Facility Start: 01-15-2021 End: 01-16-2021 Tobacco smoking status NJIS Former smoker [employer] Work Phone: Start: 01-15-2021 End: 01-16-2021 Tobacco use and exposure Former user [facility] Work Phone: Start: 01-16-2021 End: 09-15-2023 Alcohol intake Current drinker of alcohol (finding) [facility] Work Phone: Start: 01-16-2021 End: 09-15-2023 Alcohol intake [facility] Work Phone: Start: 1980 Sex Assigned At Not on file [facility] Work Phone: Exposure to SARS-CoV -2 (event) Not sure [facility] History of tobacco use Current smoker [facility] Start: 06-04-2022 End: 09-15-2023 Tobacco use panel [facility] Do you belong to any clubs or organizations such as yazdanism groups, unions, fraternal or athletic groups, or school groups? Yes [facility] Are you now , , , , never or living with a partner? [facility] How often to you hav e a drink containing alcohol? 4 or more times a week [facility] How many standard dr inks containing alcohol do you have on a typical day? 10 or more [facility] How often do you hav e 6 or more drinks on 1 occasion? Daily or almost daily [facility] How hard is it for y ou to pay for the very basics like food, housing, medical care, and heating Not hard at all [employer] (I/We) worried whelarisa er (my/our) food would run out before (I/we) got money to buy more. Never true [employer] At any time in the p ast 12 months, were you homeless or living in prison [including now]? No [facility] Start: 09-15-2023 Sexual orientation Heterosexual (finding) [facility] Procedure Code Equipment Code Equipment Origin al Text Equipment Identifier Dates Bariatric-01/16/2018 [id number] Start: 01-16-2018 Comment on above: Description: B/L jorge ast implants Goals Date Patient Goal Desired Activity /State Personal health goal Comment on above: Formatting of this n ote might be different from the original. Pt states she does not want to have inpatient treatment. Pt states she does not mind going to meetings for treatment. Pt states she has a meeting with a counselor on Friday for EMDR therapy at 180. Pt indicates that she does not want to drink alcohol anymore. Pt states that she would like to get this monkey off her back. Clinical Notes 01-16-2021 to 10-01-2023 Markos Meyers MD - 10/01/2023 2:15 PM EDTTelephone Encounter - Sera Morales - 09/18/2023 1:55 PM EDTTelephone Encounter - Sera Morales - 09/18/2023 1:55 PM EDT Note Date & Type Note Facility 10-01-2023 History of Presen t illness Narrative Images from the original note were not included. ADDICTION MEDICINE OPIOID MAINTENANCE THERAPY FOLLOW-UP VISIT PATIENT: Mark Coon Chief complaint Seen for follow up of substance dependence/use disorder, evalutae the sobriety progress and to monitor withdrawals Subjective Mark Coon, a 43 y.o. female, The patient is here for follow-up of MAT appointment Patient got her shot of Vivitrol She said that she noticed that the cravings has done the very next day and she feels great on it Other than the local soreness there is no side effects Patient stated that her anxiety and depression has flared up and she has not been eating well because of family issues with her and her Patient is requesting something to help her with eating and sleeping She denies any recent relapses despite of all the above stresses Cravings are well taking care of PTSD nightmares controlled stable Review of systems: Denies suicidal or homicidal ideation denies tactile auditory or visual hallucinations All of systems ROS was completed and was negative unless stated above Objective There were no vitals filed for this visit. Physical Exam Constitutional: Appearance: Normal appearance. She is normal weight. Neurological: Mental Status: She is alert. Psychiatric: Mood and Affect: Mood normal. Behavior: Behavior normal. Thought Content: Thought content normal. Judgment: Judgment normal. Current Outpatient Medications Medication Sig Dispense Refill busPIRone (Buspar) 15 MG tablet Take 1 tablet (15 mg) by mouth 2 times daily. 60 tablet 11 escitalopram (Lexapro) 10 MG tablet Take 1 tablet (10 mg) by mouth daily. 30 tablet 11 gabapentin (Neurontin) 100 MG capsule Take 2 capsules (200 mg) by mouth Nightly. 60 capsule 0 mirtazapine (Remeron) 30 MG tablet Take 1 tablet (30 mg) by mouth Nightly. 30 tablet 11 naltrexone (Depade) 50 MG tablet Take 1 tablet (50 mg) by mouth daily. 30 tablet 0 naltrexone ER (Vivitrol) injection Inject 4 mL (380 mg) into the shoulder, thigh, or buttocks every 28 (twenty-eight) days. 1 each 11 thiamine (Vitamin B-1) 250 MG tablet Take 1 tablet (250 mg) by mouth daily. 90 tablet 2 traZODone (Desyrel) 100 MG tablet Take 1 tablet (100 mg) by mouth Nightly. 30 tablet 0 No current facility-administered medications for this visit. OARRS: Reviewed and no inconsistencies or concerns Controlled Substances Monitoring: No data to display Assessment & Plan Substance dependence disorder 1. Alcohol use disorder 2. Depression, unspecified depression type 3. RAMEZ (generalized anxiety disorder) 4. Insomnia, unspecified type 5. PTSD (post-traumatic stress disorder) No orders of the defined types were placed in this encounter. @MEDORDMED@ 1-on Vivitrol denies any recent relapses patient to continue Lexapro and the BuSpar We will get liver function next time when she gets her Vivitrol shot 2,3 depression and anxiety patient to continue the Lexapro and the BuSpar we will add Remeron at bedtime 4 for insomnia continue the trazodone we will add Remeron 5 continue the prazosin for PTSD Patient Goals: 1. Continue 12-step meeting attendance (goal of 2 per week). 2. Actively communicate with sponsor. 3. Take medication as directed and report any negative side effects or missed doses. 4. Report any illicit drug use to either the protective services case worker or myself/my staff. 5. Keep medicine out of the reach of children. 6. Follow-up with recommended level of care. Interventions in Session: 1. Discussed patient's progress in their 12-step program. 2. Discussed progress in recovery and overall well-being. 3. Discussed stressors/triggers for a potential relapse & related coping mechanisms. No follow-ups on file. Patient was identified and seen today via Telehealth by agreement and consent. I used the following Telehealth technology: Audio and video capabilities. Patient location: Patient Location: Home. This patient encounter is appropriate and reasonable under the circumstances: transportation issues . The patient has been advised of the potential risks and limitations of this mode of treatment (including but not limited to the absence of in-person examination) and has agreed to be treated in a remote fashion in spite of them. Any and all of the patient's/patient's family's questions on this issue have been answered and I have made no promises or guarantees to the patient. The patient has also been advised to contact this office for worsening conditions or problems, and seek emergency medical treatment and/or call 911 if the patient deems either necessary. The patient stated that they are currently in the [facility]. If the patient is a minor, permission has been obtained by the parent or guardian for the patient to receive medical care at this visit. MARKOS MEYERS MD, MD Addiction Medicine 10/01/2023 at 2:15 PM documented in this encounter [facility] 09-18-2023 Telephone encounter Note Vivitrol approved by insurance. Pnt next appt on 10/01/23. Please advise if you'd like to see her sooner that that [facility] 09-18-2023 Miscellaneous Notes Vivitrol approved by insurance. Pnt next appt on 10/01/23. Please advise if you'd like to see her sooner that that Name of caller: Mark Contact phone number: [phone] Relationship to Patient: patient Provider: Dr. Meyers Practice: Behavioral Health Chief Complaint/Reason for Call: Patient Mark calling in and states that her insurance approved her medication Vivitrol. Patient is wanting to know if the provider wants this sent to the office or what the next steps will be. Please advise Best time of day caller can be reached: Any Patient advised that office/PCP has 24-48 business hours to return their call: N/A documented in this encounter [facility] 09-18-2023 Telephone encounter Note Name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 Inpatient in [facility] said she would kill everyone while under the influence of alcohol, but does not remember saying that. Outpatient Substance Abuse Treatment: Yes Comments: Yes on 09/15/2023 Emotional & Behavioral Symptoms & Functioning (current and past history) Depression Description: Pt states she has been struggling with depression and anxiety for the last 6 years; Honestly, probably most of my life. Symptoms: Radha Description: Symptoms: Anxiety Symptoms: Description: Panic Description: Symptoms: Trauma Description: Pt reports she was diagnosed with PTSD when she went to [facility] about 4-5 years ago. Pt was admitted for stating that she wanted to kill everyone when she was under the influence of alcohol, but did not remember saying that after detox. Symptoms: Other notable emotional/behavioral symptoms/functioning not listed above: In-Depth Substance Use Assessment In-Depth Substance Use Assessment needed? Yes If no assessment needed, reason: No data recorded If assessment needed, substance(s): Alcohol Alcohol Age at first use: 11 year(s) old How was/is alcohol obtained: Pt states that she got drung when she was 11. Pt states she her brother had a republican and got access to alcohol. Current type, amount and frequency: Pt states she normally drinks 4 shots, and if no one is home she would buy a a 5th and drink on it all day long as well. Pattern of use: Daily Last use date and amount: September 12, 2023 Pt reports she does not remember how much she drank that day. She was admitted to detox. Current route or method of ingestion: Oral Tolerance or withdrawal: Tolerance- yes, and Withdrawal- Yes Marijuana (No data recorded) Age at first use: No data recorded How was/is marijuana obtained: No data recorded Current type, amount and frequency: No data recorded Pattern of use: No data recorded Last use date and amount: No data recorded Current route or method of ingestion: No data recorded Tolerance or withdrawal: No data recorded Opiates (No data recorded) Age at first use: No data recorded How were/are opiates obtained: No data recorded Current type, amount and frequency: No data recorded Pattern of use: No data recorded Last use date and amount: No data recorded Current route or method of ingestion: No data recorded Tolerance or withdrawal: No data recorded Sedatives (No data recorded Age at first use: No data recorded How were/are sedatives obtained: No data recorded Current type, amount and frequency: No data recorded Pattern of use: No data recorded Last use date and amount: No data recorded Current route or method of ingestion: No data recorded Tolerance or withdrawal: No data recorded Nicotine (No data recorded) Age at first use: No data recorded How was/is nicotine obtained: No data recorded Current type, amount and frequency: No data recorded Pattern of use: No data recorded Last use date and amount: No data recorded Current route or method of ingestion: No data recorded Tolerance or withdrawal: No data recorded Stimulants (No data recorded) Age at first use: No data recorded How were/are stimulants obtained: No data recorded Current type, amount and frequency: No data recorded Pattern of use: No data recorded Last use date and amount: No data recorded Current route or method of ingestion: No data recorded Tolerance or withdrawal: No data recorded Other Hallucinogens (No data recorded) Age at first use: No data recorded How were/are hallucinogens obtained: No data recorded Current type, amount and frequency: No data recorded Pattern of use: No data recorded Last use date and amount: No data recorded Current route or method of ingestion: No data recorded Tolerance or withdrawal: No data recorded Any other forms of addiction noted? N/A Additional Information Regarding Drug of Choice Morning use? Yes Do you believe you can control your use once you start? No Longest and last period of voluntary abstinence: Pt reports 18 months and then another time it was 500 days. Twelve-step meeting attendance? No Are you willing to attend 12-Step meetings? Yes Do you have a sponsor? No When you have cut down or stopped using your drug(s) of choice, have you experienced any of the following? Shakes/tremors; Weakness; Cravings; Sleep difficulties; Sweating; Depression; Nervousness/irritability History of/Need for Detox Admission Number of detox admissions: 2 Location: [place] [facility] Date: 09/12/23 Is there an immediate need for a detox admission at the time of this assessment? No withdrawal symptoms Diagnostic Criteria for Substance-Use Disorders Checklist 1. Is the substance often taken in larger amounts or over a longer period than was intended? Yes 2. Is there a persistent desire or unsuccessful efforts to cut down or control use? Yes 3. Is a great deal of time spent in activities necessary to obtain a substance, or recovering from its effects? Yes 4. Does the client have a craving or strong desire or urge to use substances? Yes 5. Is there a recurrent substance use resulting in a failure to fulfill major role obligations at work, school or home? Yes 6. Is there continued substance use despite having persistent or recurrent social or interpersonal problems caused or exacerbated by the effects of the substance use? Yes 7. Are important social, occupational, or recreational activities given up or reduced because of substance use? No 8. Is there recurrent substance use in situations in which it is physically hazardous? Yes 9. Is substance use continued despite knowledge of having a persistent or recurrent physical or psychological problem that is likely to have been cause or exacerbated by substance use? Yes 10a) Does client have a need for markedly increased amounts of a substance to achieve intoxication or desired effect? Yes 10b) Does client experience a markedly diminished effect with continued use of the same amount of a substance? Yes 11a) Has the client experienced withdrawal syndrome? Yes 11b) Has the client continued to take a substance to avoid withdrawal, or taken some other substance in order to feel okay? Yes Substance: Alcohol Alcohol Severity: Severe Substance Use Disorder Cannabis Severity: No data recorded Hallucinogens Severity: No data recorded Inhalants Severity: No data recorded Opioids Severity: No data recorded Sedative/Hypnotics Severity: No data recorded Stimulants Severity: No data recorded Other Severity: No data recorded Remission Status Specify remission status if applicable: No data recorded Substance(s) in remission: No data recorded How long has client been free of all symptoms? PT reports some difficulty with sleep Summary of Multidimensional Assessment (ASAM) 1 Dimension 1 Severity Rating (Substance Use, Acute Intoxication, Withdrawal Potential): Mild, Rationale: Pt reports having some difficulty with sleep last night. 0 Dimension 2 Severity Rating (Biomedical Conditions and Complications): No Risk/Stable, Rationale: Pt reports no physical health complications 2 Dimension 3 Severity Rating (Emotional, Behavioral, or Cognitive Conditions and Complications): Moderate, Rationale: Pt reports anxiety and depressive Sxs as well as Hx diagnosis of PTSD. 2 Dimension 4 Severity Rating (Readiness to Change): Moderate, Rationale: Pt reports a readiness to change and maintain sobriety, but has relapsed a couple of times. 2 Dimension 5 Severity Rating (Relapse, Continued Use, or Continued Problem Potential): Moderate, Rationale: PT reports being sober for 18 months once and another time for 500 days which is equlavent to about 16 months. 2 Dimension 6 Severity Rating (Recovery/Living Environment): Moderate, Rationale: PT reports some conflict within her marital relationship due to her misuse of alcohol. Pt also indicates there are times when she is home alone which can increase the chances of a lapse or relapse. Needs, Strengths, Preferences, and Goals (short & long-term personal goals) Needs: Substance use Treatment Strengths: Stable housing, Support from family Preferences: Pt states that she would like to meet with Dr. Meyers before making a decision about addictin treatment. Pt states that she will make and appointment to meet with him soon. Goals Quit drinking alcohol Pt states she does not want to have inpatient treatment. Pt states she does not mind going to meetings for treatment. Pt states she has a meeting with a counselor on Friday for EMDR therapy at 180. Pt indicates that she does not want to drink alcohol anymore. Pt states that she would like to get this monkey off her back. Mental Status Exam General Observations Appearance: Neatly groomed Demeanor: Minimal Activity: Normal, Unremarkable Speech: Logical/coherent Eye Contact: Fair Mood & Affect Mood: Euthymic Affect: Appropriate Behavior Behavior: Cooperative Cognition Orientation Level: Oriented X4, Oriented to place, Oriented to time, Oriented to situation, Oriented to person Level of Consciousness: Alert Thought Processes: Logical Thought Content: Unremarkable Delusions: Other (Comment) (Not observed) Perceptions: Not altered Memory Tested: No Memory Disturbance: No Attention Deficit: No Judgment: Other (Comment) (Unimpaired) Insight: Unimpaired Suicide Risk Assessment Suicide Risk Assessment (Assess lethality if SI present) Ideation: Pt reports no past or current suicidal ideation. Intent: PT reports no past or current suicidal intentions Plan: Pt reports no past or current plans for suicide. Self abusive behaviors: Pt reports no past or current self-abusive behaviors. Assessed Level of Suicide Risk Suicidal Ideation 1. Wish to be (Lifetime): No 2. Non-Specific Active Suicidal Thoughts (Lifetime): No Suicidal Behavior Actual Attempt (Lifetime): No Actual Attempt (Past 3 Months): No Has subject engaged in non-suicidal self-injurious behavior? (Lifetime): No Has subject engaged in non-suicidal self-injurious behavior? (Past 3 Months): No Interrupted Attempts (Lifetime): No Interrupted Attempts (Past 3 Months): No Aborted or Self-Interrupted Attempt (Lifetime): No Aborted or Self-Interrupted Attempt (Past 3 Months): No Preparatory Acts or Behavior (Lifetime): No Preparatory Acts or Behavior (Past 3 Months): No C-SSRS Risk (Lifetime/Recent) Calculated C-SSRS Risk Score (Lifetime/Recent): No Risk Indicated Suicidal and Self-Injurious Behavior Actual Attempt (Past 3 Months): No Actual Attempt (Lifetime): No Interrupted Attempts (Past 3 Months): No Interrupted Attempts (Lifetime): No Aborted or Self-Interrupted Attempt (Past 3 Months): No Aborted or Self-Interrupted Attempt (Lifetime): No Preparatory Acts or Behavior (Past 3 Months): No Preparatory Acts or Behavior (Lifetime): No Has subject engaged in non-suicidal self-injurious behavior? (Past 3 Months): No Has subject engaged in non-suicidal self-injurious behavior? (Lifetime): No C-SSRS Frequent Screener with Triage 2. Non-Specific Active Suicidal Thoughts (Since Last Contact): No Preparatory Acts or Behavior (Since Last Contact): No Calculated C-SSRS Risk Score (Since Last Contact): No Risk Indicated Rationale for Risk Level (Narrative to include description of ALL FOUR of the following: historical and current suicidal ideation, suicidal behaviors, non-suicidal self-harming behaviors, and protective factors that support the level of suicide-risk selected. Rationale to include comment on each endorsed item on C-SSRS as well as clarification re: any baseline and/or significant changes in thoughts and behaviors related to suicide risk): No risk pt reports no past or current plans or intentions to harm/kill herself or anyone else. Pt reports her family as protective factors for her. Resources/Interventions Provided Homicide/Aggressive Behavior Risk Assessment Does patient have any current/history of homicidal ideation? (Explain: identify any history of ideation, intent, plan and/or actual homicidal behaviors) History: Yes (Pt reports when she was under the influence of alcohol she said she wanted to kill everyone, but she does not remember saying this. Pt states she was admitted to the hospital in [facility] for this incident.) Current: No Does patient have any history of aggressive behavior/threats towards others that does not include homicidal intent? History: No Current: No Comments Re: Significant MSE Findings Pt did shed tears during this intake assessment. Recommended Level of Care 2.1 Intensive Outpatient Services Level of Care Placed Pt was not placed in a level of care. Pt reports that she has an appointment on Friday with another counselor for EMDR therapy services. Patient's Response to Recommendations Pt states she would like to make and appointment and meet with Dr. Chris shaw before making a decision about addiction treatment since he helped her with sobriety before. Diagnostic Impression (F10.20) Alcohol use disorder, severe, dependence (HCC) Narrative Summary & Justification for Level of Care Pt is a 43-year-old female with 3 adult children who is presenting for an assessment on this day referred by [facility] provider Dr. Meyers. PT reports that she is currently employed and lives with her and middle son. P. presented on this day oriented and appropriately dressed. She exhibited normal thought content and appeared open and honest regarding her history including substance misuse. Her mood was appropriate with congruent affect. She reported a recent detox admission on Tuesday September 12, 2023, and discharged on Thursday September 14, 2023. Pt indicated a long history of alcohol misuse and is recommended to 2.1 [facility] level of care with placement at [facility] with a start date/time to be determined. PT states she would like to meet with Dr. Mira shaw before deciding on addiction treatment options. Pt. also indicated a history of some symptoms of depression and anxiety as well as diagnosis of PTSD that may warrant attention during upcoming treatment episode if the pt decided to attend [facility] addiction services. No report or indication of any suicidal/homicidal ideation presently. Pt accepted the Tx recommendations and contact information before leaving this appt. Linked Episodes Type: Episode: Status: Noted: Resolved: Last update: Updated by: Behavioral Health - Addiction IOP Behavioral Health - Addiction [facility] - August 2023 Active 09/04/2023 09/15/2023 1:07 PM Obstetrics Physician Template Comments:Episode created by system 09/04/2023 1:32 PM ALEX Barney documented in this encounter [facility] 09-04-2023 History of Presen t illness Narrative Images from the original note were not included. ADDICTION MEDICINE OPIOID MAINTENANCE THERAPY FOLLOW-UP VISIT PATIENT: Mark Coon Chief complaint Seen for follow up of substance dependence/use disorder, evalutae the sobriety progress and to monitor withdrawals Subjective Mark Coon, a 43 y.o. female, Referred from self referral Alcohol use d/o since the age of teens Drinks 1/5 of 40 proof vodka daily Last drink yesterday denies other drug use denies seizures or Dts few black outs denies legal issues denies overdoses or iv drug use The patient denies history of psych hospitalization denies current or remote suicidal or homicidal ideation , History of depression and anxiety uncontorled All forms of child briscoe trauma with ptsd and night farfan Patient will be detoxed from alcohol as outpatient I will start her on a Librium tapering dose over 4 days She is currently on 25 mg tablets to take 2 every 6 hours for the first day Then take 1 tablet every 6 hours secondary 1 tablet every 8 hours Then 1 tablet every 12 hours 1 tablet daily for 1 day Review of systems: Denies suicidal or homicidal ideation denies tactile auditory or visual hallucinations All of systems ROS was completed and was negative unless stated above Objective There were no vitals filed for this visit. Physical Exam Constitutional: Appearance: Normal appearance. She is normal weight. Neurological: Mental Status: She is alert. Psychiatric: Mood and Affect: Mood normal. Behavior: Behavior normal. Thought Content: Thought content normal. Judgment: Judgment normal. Tongue Fasciculations: 0/10 Extremity Tremors: 1/10 Diaphoresis: 0/10 Restlessness: 1/10 Palmar Erythema 1/10 Current Outpatient Medications Medication Sig Dispense Refill naltrexone (Depade) 50 MG tablet Take 1 tablet (50 mg) by mouth daily. 30 tablet 0 No current facility-administered medications for this visit. OARRS: Reviewed and no inconsistencies or concerns Controlled Substances Monitoring: No data to display Assessment & Plan Substance dependence disorder 1. Alcohol use disorder 2. Depression, unspecified depression type 3. RAMEZ (generalized anxiety disorder) 4. Insomnia, unspecified type 5. PTSD (post-traumatic stress disorder) Orders Placed This Encounter Procedures Comprehensive metabolic panel Standing Status: Future Number of Occurrences: 1 Standing Expiration Date: 09/03/2024 CBC auto differential Standing Status: Future Number of Occurrences: 1 Standing Expiration Date: 09/03/2024 TSH Standing Status: Future Number of Occurrences: 1 Standing Expiration Date: 09/03/2024 Vitamin B12 Standing Status: Future Number of Occurrences: 1 Standing Expiration Date: 09/03/2024 Follicle stimulating hormone Standing Status: Future Number of Occurrences: 1 Standing Expiration Date: 09/03/2024 @MEDORDMED@ 1-During this visit the patient was prescribed naltrexone and will arrange vivitrol 2,3 depression and anxiety will start on lexarpo 10 mg po dailiy will send a script For buspar 15 mg bid 4 will start on trazodone 100 mg at bed time 5 ptsd will start on prazosin Patient Goals: 1. Continue 12-step meeting attendance (goal of 2 per week). 2. Actively communicate with sponsor. 3. Take medication as directed and report any negative side effects or missed doses. 4. Report any illicit drug use to either the protective services case worker or myself/my staff. 5. Keep medicine out of the reach of children. 6. Follow-up with recommended level of care. Interventions in Session: 1. Discussed patient's progress in their 12-step program. 2. Discussed progress in recovery and overall well-being. 3. Discussed stressors/triggers for a potential relapse & related coping mechanisms. No follow-ups on file. I spent 50 minutes with the pt and her family ( son ) explaining the nature of addiction disease , treatment modalities , arranging plan MARKOS MEYERS MD, MD Addiction Medicine 09/04/2023 at 12:52 PM documented in this encounter [facility] 01-16-2021 Note Internal Medicine: M ed Team Discharge Summary Mark Coon : 1980 ADMIT DATE: 01/15/2021 DISCHARGE DATE: 01/16/21 PCP: No primary care provider on file. Visit Status: Observation Code Status: FULL CODE Primary Discharge Diagnosis: Alcohol Detox Secondary Discharge Diagnoses: Principal Problem: Alcohol withdrawal syndrome, uncomplicated (HCC) Active Problems: Alcoholism (HCC) Anxiety and depression Metabolic acidosis, increased anion gap (IAG) Resolved Problems: * No resolved hospital problems. * Reason for Admission & Hospital Course: Mark Coon is a 40 y.o. female that presented to [facility] on 01/15/2021 and was admitted for alcohol withdrawal. Has a hx of alcohol use with previous detox 18 months ago at an outside facility. She reports that she started drinking again a few weeks ago due to anxiety and stress. In the ED, presented tachycardic, with a HAGMA. ETOH level 0.248. Labs were unremarkable. She received one dose of phenobarb and one dose of ativan in the ED. She wishes to have ETOH detox and to see physiatry for anxiety & depression. Discussed with Dr. Pastor and cleared to be transferred to [place] for inpatient ETOH detox. Ms. Cono is stable and understanding of the plan. Disposition: [place] Activity: up with assist Diet: ADULT DIET; Regular; 4 carb choices (60 gm/meal) Discharge Medications: There are no discharge medications for this patient. Notable Medication Changes & Reasoning: NA Consultants ADM Psych Procedures Performed NA Significant Laboratory/Radiographic Data: ETOH level 0.284 Pending Results at Time of Discharge NA Follow Up Appointment(s): No future appointments. Items to Address at Followup Visit: Anxiety/depression Patient seen & examined on day of discharge. Please refer to note dated on the day of discharge () for associated attestation, exam, and plan. [facility] 01-16-2021 Hospital course Narrative Images from the original note were not included. Internal Medicine: Med Team Discharge Summary Mark Coon : 1980 ADMIT DATE: 01/15/2021 DISCHARGE DATE: 01/16/21 PCP: No primary care provider on file. Visit Status: Observation Code Status: FULL CODE Primary Discharge Diagnosis: Alcohol Detox Secondary Discharge Diagnoses: Principal Problem: Alcohol withdrawal syndrome, uncomplicated (HCC) Active Problems: Alcoholism (HCC) Anxiety and depression Metabolic acidosis, increased anion gap (IAG) Resolved Problems: * No resolved hospital problems. * Reason for Admission & Hospital Course: Mark Coon is a 40 y.o. female that presented to [facility] on 01/15/2021 and was admitted for alcohol withdrawal. Has a hx of alcohol use with previous detox 18 months ago at an outside facility. She reports that she started drinking again a few weeks ago due to anxiety and stress. In the ED, presented tachycardic, with a HAGMA. ETOH level 0.248. Labs were unremarkable. She received one dose of phenobarb and one dose of ativan in the ED. She wishes to have ETOH detox and to see physiatry for anxiety & depression. Discussed with Dr. Pastor and cleared to be transferred to [place] for inpatient ETOH detox. Ms. Coon is stable and understanding of the plan. Disposition: [place] Activity: up with assist Diet: ADULT DIET; Regular; 4 carb choices (60 gm/meal) Discharge Medications: There are no discharge medications for this patient. Notable Medication Changes & Reasoning: NA Consultants ADM Psych Procedures Performed NA Significant Laboratory/Radiographic Data: ETOH level 0.284 Pending Results at Time of Discharge NA Follow Up Appointment(s): No future appointments. Items to Address at Followup Visit: Anxiety/depression Patient seen & examined on day of discharge. Please refer to note dated on the day of discharge () for associated attestation, exam, and plan. documented in this encounter [facility] Work Phone: Evaluation note Diagnosis Alcohol withdrawal syndrome, uncomplicated (HCC)- Primary Alcohol dependence with uncomplicated intoxication (HCC) Acute alcoholic intoxication in alcoholism, unspecified Alcoholism (HCC) Other and unspecified alcohol dependence, unspecified drinking behavior Anxiety and depression Dysthymic disorder Metabolic acidosis, increased anion gap (IAG) Acidosis documented in this encounter [facility] Work Phone: Evaluation note* Diagnosis Alcohol abuse- Primary Alcohol abuse, unspecified documented in this encounter [facility] Work Phone: Evaluation note* Diagnosis Alcohol use disorder- Primary Depression, unspecified depression type RAMEZ (generalized anxiety disorder) Generalized anxiety disorder Insomnia, unspecified type PTSD (post-traumatic stress disorder) Posttraumatic stress disorder [facility] Alcohol use disorder, severe, dependence (HCC) [facility] Diagnosis Alcohol use disorder Depression, unspecified depression type RAMEZ (generalized anxiety disorder) Generalized anxiety disorder Insomnia, unspecified type PTSD (post-traumatic stress disorder) Posttraumatic stress disorder [facility] Alcohol use disorder Depression, unspecified depression type RAMEZ (generalized anxiety disorder) Generalized anxiety disorder Insomnia, unspecified type PTSD (post-traumatic stress disorder) Posttraumatic stress disorder [facility] Diagnosis Alcohol use disorder Depression, unspecified depression type RAMEZ (generalized anxiety disorder) Generalized anxiety disorder Insomnia, unspecified type PTSD (post-traumatic stress disorder) Posttraumatic stress disorder documented in this encounter [facility] Advance Directives No Advanced Directives Records FoundLatest Code Status on File Code Status Date Activated Date Inactivated Comments Full Code 01/16/2021 10:22 AM Latest Code Status on File Code Status Date Activated Date Inactivated Comments Full Code 01/16/2021 10:22 AM 01/19/2021 5:41 PM Summary Purpose Family History No Family History Records FoundNo Family History Records Found Additional Source Comments Reason for Visit (unrecogniz ed section and content) Reason Comments Alcohol Intoxication Pt states that she would like to seek detox from ETOH. Pt states that she has not drank in 18 months. Pt states that she drank today and drank all of it Pt states that she is very sad but denies SI and HI Reason Comments Alcohol Problem Pt requesting detox from alcohol. Pt states her last drink was 30 min ago. Pt states she drinks vodka daily but does not know how much she drinks. Reason Comments Addiction Problem Reason Comments Alcohol Problem Pt states that she w ould like to be sober from alcohol. Pt states she was admitted to Detox on Sunday September 11, 2022 and was discharged on 09/14/2023. Reason Onset Date Comments Vivitrol 09/18/2023 Scheduled Active and Recently Administ ered Medications (unrecognized section and content) Medication Order 01/14/2021 01/15/2021 01/16/2021 0.9 % sodium chloride bolus (COMPLETED) 1,000 mL, Intravenous, at 2,000 mL/hr, Administer over 0.5 Hours, ONCE, On Fri01/16/21 at 0015, For 1 dose 0024 (New Bag - Prov ider: Moe Stern RN)0221 (Stopped - Provider: Leticia Cabrera RN) enoxaparin (LOVENOX) injection 40 mg 40 mg, Subcutaneous, DAILY, First dose on Fri01/16/21 at 1200 1224 (Given - Provid er: Mi Martinez RN) folic acid (FOLVITE) tablet 1 mg 1 mg, Oral, DAILY, First dose on Fri01/16/21 at 1030 1223 (Given - Provid er: Mi Martinez RN) LORazepam (ATIVAN) injection 1 mg (COMPLETED) 1 mg, Intravenous, ONCE, On Fri01/16/21 at 0015, For 1 dose 0023 (Given - Provid er: Moe Stern RN) pantoprazole (PROTONIX) tablet 40 mg 40 mg, Oral, DAILY BEFORE BREAKFAST, First dose on Fri01/16/21 at 0700, Do not crush or break. 0645 (Given - Provid er: Moe Stern RN) PHENobarbital (LUMINAL) tablet 97.2 mg (COMPLETED) 97.2 mg, Oral, ONCE, On Fri01/16/21 at 0330, For 1 dose 0345 (Given - Provid er: Moe Stern RN) PHENobarbital (LUMINAL) tablet 97.2 mg 97.2 mg, Oral, EVERY 4 HOURS, First dose on Fri01/16/21 at 1200, Hold if patient unarousable 1223 (Given - Provid er: Mi Martinez RN)1610 (Given - Provider: Leticia Mckeon RN)2000 (Due) sodium chloride flush 0.9 % injection 3 mL(Linked Group 1) 3 mL, Intravenous, EVERY 8 HOURS, First dose on Fri01/16/21 at 0015, Flush line with 3-5 mL 0100 (Not Given - Pr ovider: Moe Stern RN - Reason: Order parameters not met - Comment: fluids infusing)0815 (Due)1619 (Given - Provider: Leticia Mckeon RN) sodium chloride flush 0.9 % injection 5-40 mL 5-40 mL, Intravenous, EVERY 12 HOURS SCHEDULED (2 times per day), First dose on Fri01/16/21 at 0900, For Line Patency: Peripheral IV = 5 mL; Midline or Central Line = 10 mL/lumen. If following IV push medication, administer flush at same rate as the IV push. Flush volume is determined by type of infusion therapy being given. For non-viscous solutions use: Peripheral IV = 5 mL Midline or Central Line = 10 mL/lumen For viscous solutions (i.e. blood components, parenteral nutrition, contrast media, or after obtaining blood sample) use: Peripheral IV = 10 mL Midline or Central Line = 20 mL/lumen 0900 (Due)2099 (Due) sodium chloride flush 0.9 % injection 5-40 mL 5-40 mL, Intravenous, EVERY 12 HOURS SCHEDULED (2 times per day), First dose on Fri01/16/21 at 1030, For Line Patency: Peripheral IV = 5 mL; Midline or Central Line = 10 mL/lumen. If following IV push medication, administer flush at same rate as the IV push. Flush volume is determined by type of infusion therapy being given. For non-viscous solutions use: Peripheral IV = 5 mL Midline or Central Line = 10 mL/lumen For viscous solutions (i.e. blood components, parenteral nutrition, contrast media, or after obtaining blood sample) use: Peripheral IV = 10 mL Midline or Central Line = 20 mL/lumen 1030 (Due)2100 (Due) therapeutic multivitamin-minerals 1 tablet 1 tablet, Oral, DAILY, First dose on Fri01/16/21 at 1200 1227 (Given - Provid er: Mi Martinez RN) thiamine mononitrate tablet 300 mg 300 mg, Oral, DAILY, First dose on Fri01/16/21 at 1030 1222 (Given - Provid er: Mi Martinez RN) PRN Medication Order 01/14/2021 01/15/2021 01/16/2021 0.9 % sodium chloride infusion 25 mL, Intravenous, at 100 mL/hr, PRN, If patient receiving piggyback infusions without ordered maintenance IV fluids or with frequent/long duration piggyback infusions, Starting on Fri01/16/21 at 0005, Administer at the same rate as the piggyback being infused. 0.9 % sodium chloride infusion 25 mL, Intravenous, at 100 mL/hr, PRN, If patient receiving piggyback infusions without ordered maintenance IV fluids or with frequent/long duration piggyback infusions, Starting on Fri01/16/21 at 1022, Administer at the same rate as the piggyback being infused. acetaminophen (TYLENOL) suppository 650 mg 650 mg, Rectal, EVERY 6 HOURS PRN, Pain Mild (1-3), Fever, For temp greater than 100.4 F (38 C), Starting on Fri01/16/21 at 0524, Administer if oral route cannot be used. acetaminophen (TYLENOL) tablet 650 mg 650 mg, Oral, EVERY 4 HOURS PRN, Pain Mild (1-3), Starting on Fri01/16/21 at 1052, Maximum dose of acetaminophen is 4000 mg from all sources in 24 hours. hydrOXYzine (VISTARIL) capsule 50 mg 50 mg, Oral, EVERY 6 HOURS PRN, Itching, Anxiety, Starting on Fri01/16/21 at 1052 1225 (Given - Provid er: Mi Martinez RN) loperamide (IMODIUM) capsule 2 mg 2 mg, Oral, 4 TIMES DAILY PRN, Diarrhea, Starting on Fri01/16/21 at 1052, After each loose stool. LORazepam (ATIVAN) injection 1 mg(Linked Group 2) 1 mg, Intravenous, EVERY 1 HOUR PRN (WITHDRAWAL), Withdrawal, For alcohol withdrawal., Starting on Fri01/16/21 at 0405, For CIWA score 8 to 10. If both oral and intravenous CIWA medications ordered, use intravenous if unable to tolerate oral equivalent. Reassess CIWA one hour after each dose of medication and as needed. 0642 (See Alternativ e - Provider: Moe Stern RN)1618 (See Alternative - Provider: Leticia Mckeon, MARIELA) LORazepam (ATIVAN) injection 2 mg(Linked Group 2) 2 mg, Intravenous, EVERY 1 HOUR PRN (WITHDRAWAL), Withdrawal, For alcohol withdrawal., Starting on Fri01/16/21 at 0405, For CIWA score 11 to 15. If both oral and intravenous CIWA medications ordered, use intravenous if unable to tolerate oral equivalent. Reassess CIWA one hour after each dose of medication and as needed. 0642 (See Alternativ e - Provider: Moe Stern RN)1618 (See Alternative - Provider: Leticia Mckeon RN) LORazepam (ATIVAN) injection 3 mg(Linked Group 2) 3 mg, Intravenous, EVERY 1 HOUR PRN (WITHDRAWAL), Withdrawal, For alcohol withdrawal., Starting on Fri01/16/21 at 0405, For CIWA score 16 to 20. If both oral and intravenous CIWA medications ordered, use intravenous if unable to tolerate oral equivalent. Reassess CIWA one hour after each dose of medication and as needed. 0642 (See Alternativ e - Provider: Moe Stern RN)1618 (See Alternative - Provider: Leticia Mckeon RN) LORazepam (ATIVAN) injection 4 mg(Linked Group 2) 4 mg, Intravenous, EVERY 1 HOUR PRN (WITHDRAWAL), Withdrawal, For alcohol withdrawal., Starting on Fri01/16/21 at 0405, For CIWA score greater than 20. If both oral and intravenous CIWA medications ordered, use intravenous if unable to tolerate oral equivalent. Reassess CIWA one hour after each dose of medication and as needed. 0642 (See Alternativ e - Provider: Moe Stern RN)1618 (See Alternative - Provider: Leticia Mckeon RN) LORazepam (ATIVAN) tablet 1 mg(Linked Group 2) 1 mg, Oral, EVERY 1 HOUR PRN (WITHDRAWAL), For alcohol withdrawal., Starting on Fri01/16/21 at 0405, For CIWA score 8 to 10. Reassess CIWA one hour after each dose of medication and as needed. 0642 (Given - Provid er: Moe Stern RN)1618 (Given - Provider: Leticia Mckeon RN) LORazepam (ATIVAN) tablet 2 mg(Linked Group 2) 2 mg, Oral, EVERY 1 HOUR PRN (WITHDRAWAL), For alcohol withdrawal., Starting on Fri01/16/21 at 0405, For CIWA score 11 to 15. Reassess CIWA one hour after each dose of medication and as needed. 0642 (See Alternativ e - Provider: Moe Stern RN)1618 (See Alternative - Provider: Leticia Mckeon RN) LORazepam (ATIVAN) tablet 3 mg(Linked Group 2) 3 mg, Oral, EVERY 1 HOUR PRN (WITHDRAWAL), For alcohol withdrawal., Starting on Fri01/16/21 at 0405, For CIWA score 16 to 20. Reassess CIWA one hour after each dose of medication and as needed. 0642 (See Alternativ e - Provider: Moe Stern RN)1618 (See Alternative - Provider: Leticia Mckeon RN) LORazepam (ATIVAN) tablet 4 mg(Linked Group 2) 4 mg, Oral, EVERY 1 HOUR PRN (WITHDRAWAL), For alcohol withdrawal., Starting on Fri01/16/21 at 0405, For CIWA score greater than 20. Reassess CIWA one hour after each dose of medication and as needed. 0642 (See Alternativ e - Provider: Moe Stern RN)1618 (See Alternative - Provider: Leticia Mckeon RN) magnesium hydroxide (MILK OF MAGNESIA) 400 MG/5ML suspension 30 mL 30 mL, Oral, DAILY PRN, Constipation, Starting on Fri01/16/21 at 1052 ondansetron (ZOFRAN) injection 4 mg 4 mg, Intravenous, EVERY 6 HOURS PRN, Nausea, Vomiting, Starting on Fri01/16/21 at 0524, Administer if oral route cannot be used. ondansetron (ZOFRAN) tablet 8 mg 8 mg, Oral, EVERY 8 HOURS PRN, Nausea, Vomiting, Starting on Fri01/16/21 at 1052 polyethylene glycol (GLYCOLAX) packet 17 g 17 g, Oral, DAILY PRN, Constipation, Starting on Fri01/16/21 at 1022, First line therapy for constipation sodium chloride flush 0.9 % injection 5-40 mL 5-40 mL, Intravenous, PRN, Line Care, After every IV line use, Starting on Fri01/16/21 at 0005, For Line Patency: Peripheral IV = 5 mL; Midline or Central Line = 10 mL/lumen. If following IV push medication, administer flush at same rate as the IV push. Flush volume is determined by type of infusion therapy being given. For non-viscous solutions use: Peripheral IV = 5 mL Midline or Central Line = 10 mL/lumen For viscous solutions (i.e. blood components, parenteral nutrition, contrast media, or after obtaining blood sample) use: Peripheral IV = 10 mL Midline or Central Line = 20 mL/lumen sodium chloride flush 0.9 % injection 5-40 mL 5-40 mL, Intravenous, PRN, Line Care, After every IV line use, Starting on Fri01/16/21 at 1022, For Line Patency: Peripheral IV = 5 mL; Midline or Central Line = 10 mL/lumen. If following IV push medication, administer flush at same rate as the IV push. Flush volume is determined by type of infusion therapy being given. For non-viscous solutions use: Peripheral IV = 5 mL Midline or Central Line = 10 mL/lumen For viscous solutions (i.e. blood components, parenteral nutrition, contrast media, or after obtaining blood sample) use: Peripheral IV = 10 mL Midline or Central Line = 20 mL/lumen traZODone (DESYREL) tablet 100 mg 100 mg, Oral, NIGHTLY PRN, Sleep, Starting on Fri01/16/21 at 2100 Linked Groups Order Group 1: Saline lock IV (COMPLETED) Routine, CONTINUOUS, Starting on Fri01/16/21 at 0015, Until Specified And sodium chloride flush 0.9 % injection 3 mLJump to med 3 mL, Intravenous, EVERY 8 HOURS, First dose on Fri01/16/21 at 0015
Flush line with 3-5 mL
Group 2: LORazepam (ATIVAN) tablet 1 mgJump to med 1 mg, Oral, EVERY 1 HOUR PRN (WITHDRAWAL), For alcohol withdrawal., Starting on Fri01/16/21 at 0405
For CIWA score 8 to 10. Reassess CIWA one hour after each dose of medication and as needed.
Or LORazepam (ATIVAN) injection 1 mgJump to med 1 mg, Intravenous, EVERY 1 HOUR PRN (WITHDRAWAL), Withdrawal, For alcohol withdrawal., Starting on Fri01/16/21 at 0405
For CIWA score 8 to 10. If both oral and intravenous CIWA medications ordered, use intravenous if unable to tolerate oral equivalent. Reassess CIWA one hour after each dose of medication and as needed.
Or LORazepam (ATIVAN) tablet 2 mgJump to med 2 mg, Oral, EVERY 1 HOUR PRN (WITHDRAWAL), For alcohol withdrawal., Starting on Fri01/16/21 at 0405
For CIWA score 11 to 15. Reassess CIWA one hour after each dose of medication and as needed.
Or LORazepam (ATIVAN) injection 2 mgJump to med 2 mg, Intravenous, EVERY 1 HOUR PRN (WITHDRAWAL), Withdrawal, For alcohol withdrawal., Starting on Fri01/16/21 at 0405
For CIWA score 11 to 15. If both oral and intravenous CIWA medications ordered, use intravenous if unable to tolerate oral equivalent. Reassess CIWA one hour after each dose of medication and as needed.
Or LORazepam (ATIVAN) tablet 3 mgJump to med 3 mg, Oral, EVERY 1 HOUR PRN (WITHDRAWAL), For alcohol withdrawal., Starting on Fri01/16/21 at 0405
For CIWA score 16 to 20. Reassess CIWA one hour after each dose of medication and as needed.
Or LORazepam (ATIVAN) injection 3 mgJump to med 3 mg, Intravenous, EVERY 1 HOUR PRN (WITHDRAWAL), Withdrawal, For alcohol withdrawal., Starting on Fri01/16/21 at 0405
For CIWA score 16 to 20. If both oral and intravenous CIWA medications ordered, use intravenous if unable to tolerate oral equivalent. Reassess CIWA one hour after each dose of medication and as needed.
Or LORazepam (ATIVAN) tablet 4 mgJump to med 4 mg, Oral, EVERY 1 HOUR PRN (WITHDRAWAL), For alcohol withdrawal., Starting on Fri01/16/21 at 0405
For CIWA score greater than 20. Reassess CIWA one hour after each dose of medication and as needed.
Or LORazepam (ATIVAN) injection 4 mgJump to med 4 mg, Intravenous, EVERY 1 HOUR PRN (WITHDRAWAL), Withdrawal, For alcohol withdrawal., Starting on Fri01/16/21 at 0405
For CIWA score greater than 20. If both oral and intravenous CIWA medications ordered, use intravenous if unable to tolerate oral equivalent. Reassess CIWA one hour after each dose of medication and as needed.
Scheduled Medication Order 07/14/2021 07/15/2021 07/16/2021 0.9 % sodium chloride bolus (COMPLETED) 1,000 mL (16.9 mL/kg), IntraVENous, at 1,000 mL/hr, Administer over 1 Hours, ONCE, On Fri07/15/21 at 2200, For 1 dose 2158 (New Bag - Provider: Yina Madden, RN)2330 (Stopped - Provider: iYna Madden, RN) PHENobarbital (LUMINAL) tablet 97.2 mg (COMPLETED) 97.2 mg, Oral, ONCE, On Fri07/16/21 at 0015, For 1 dose 0014 (Given - Provid er: Yina Madden, MARIELA) INFORMATION SOURCE (unrecogn ized section and content) DATE CREATED AUTHOR 07/31/2021 [facility] DATE CREATED AUTHOR 'S ORGANIZ ATION 10/29/2023 [facility] Care Teams (unrecognized sec tion and content) Professor Of Counseling Relationship Specialty Start Date End Date [facility] [address] [place] [address] PCP - General 09/04/23 Professor Of Counseling Relationship Specialty Start Date End Date [facility] [address] [place] [address] PCP - General 09/04/23 Professor Of Counseling Relationship Specialty Start Date End Date [facility] [address] [place] [address] PCP - General 09/04/23 Professor Of Counseling Relationship Specialty Start Date End Date [facility] [address] [place] [address] PCP - General 09/04/23 Professor Of Counseling Relationship Specialty Start Date End Date [facility] [address] [place] [address] PCP - General 09/04/23 Professor Of Counseling Relationship Specialty Start Date End Date [facility] [address] [place] [address] PCP - General 09/04/23 FOR RECORDS PERTAINING TO PATIENTS WHO ARE OR HAVE BEEN ENROLLED IN A CHEMICAL DEPENDENCY/SUBSTANCEABUSE PROGRAM, SOME INFORMATION MAY BE OMITTED. This clinical summary was aggregated from multiple sources. Caution should be exercised in using it in the provision of clinical care. This summary normalizes information from multiple sources, and as a consequence, information in this document may materially change the coding, format and clinical context of patient data. In addition, data may be omitted in some cases. CLINICAL DECISIONS SHOULD BE BASED ON THE PRIMARY CLINICAL RECORDS. [facility]. provides no warranty or guarantee of the accuracy or completeness of information in this document.
== END | disposition home or self-care (01) ==
PROVIDERS: PCP Physician Assistant; Referring Provider Physician Assistant Surgical; Visit Provider Physician Assistant Surgical
DX: N39.0 Urinary tract infection, site not specified (principal)
CPT/HCPCS: 87077; 87086; 87088; 87186

== ENCOUNTER 2024-10-09 10:56 | Emergency (ER) | payer BC, SELFPAY ==
[2024-10-09 10:57] VITALS: BP 130/88; PULSE 79; RESP 16; TEMP 35.7; O2SAT 98; BMI 21.3
--- NOTE | 2024-10-09 11:14 | EDS_ITS ---
HPI <ALEJANDRO Carson - Last Filed: 10/09/24 12:16> History of Present Illness Chief Complaint: Anxiety Narrative Narrative: Patient is a 44-year-old female with history of alcohol use, anxiety depression who presents to the [facility] for worsening Mireille. Pay states that she is currently going through a divorce, she states that is not going well. She was sober for many years however the last several weeks has been binge drinking she will drink about 10 shots per day. Patient states she has not had any alcohol in the last 2 days. Today, she was more shaky, was feeling dehydrated, her anxiety was out of control and she is here for evaluation. She denies any suicidal homicidal ideation, she has no want to be admitted today. Patient states she is set up with the [facility] program and has an appointment in 2 days. [facility] <ALEJANDRO Carson - Last Filed: 10/09/24 12:16> [facility] Medical History Migraines Alcohol dependence History of steroid therapy Former smoker History of edema Dysmenorrhea Dyspareunia Depression Anxiety history of bladder infection/ UTI History of alcohol abuse Fibroadenoma of left breast Alcohol use disorder, severe, in early remission Generalized anxiety disorder Major depressive disorder, recurrent severe without psychotic features Home Medications ?Medication ?Instructions ?Recorded ?Last Taken ?Type buspirone 15 mg tablet 15 mg PO BID 09/11/23 Unknow n History escitalopram oxalate 10 mg tablet 10 mg PO DAILY 09/10 Unknown History naltrexone 50 mg tablet 50 mg PO DAILY 09/11/23 Unkn own History prazosin 2 mg capsule 2 mg PO QHS 09/11/23 Unknown History trazodone 100 mg tablet 100 mg PO QHS 09/11/23 Unkno wn History phenazopyridine 200 mg tablet 200 mg PO TID PRN pain 6 doses #7 04/15/24 Unknown Rx (Pyridium) tabs hydroxyzine HCl 25 mg tablet 25 mg PO TID PRN anxiety 5 days 10/09/24 Unknown Rx #14 tabs Allergy/AdvReac Type Severity Reaction Status Date / Time No Known Allergies Allergy Verified 04/15/24 09:08 Family History Father Diabetes Mother Cancer lung Grandfather Heart disease Myocardial infarction, Onset Age: 60 Other Alcoholism Anxiety Arthritis Asthma Depressed Mental disorder Psychiatric care Severe allergy Thyroid disorder Surgical History S/P vaginal hysterectomy History of left breast biopsy (~02/17/20) History of breast augmentation (~2018) History of tubal ligation Social History Smoking Status: Former smoker alcohol intake: former year quit: 2019 substance use type: does not use caffeine: Yes what type of physical activity do you participate in: walking frequency: daily seatbelt use: always do you feel safe at home: Yes additional social history: Nancy Jackson 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 <ALEJANDRO Carson - Last Filed: 10/09/24 12:16> ROS ED ROS Narrative Constitutional: Negative for fever, chills, weight loss, weakness Eyes: Negative for vision loss, vision change, double vision ENT: Negative for any sore throat, ear pain, congestion Cardiovascular: Negative for any chest pain, tightness, palpitations Respiratory: Negative for any cough, sputum production, hemoptysis, dyspnea, dyspnea on exertion, orthopnea Gastrointestinal: Negative for any abdominal pain, nausea, vomiting, diarrhea, constipation, blood in stool, blood in vomit : Negative for any urinary frequency, dysuria, retention, blood in urine Muscle skeletal: Negative for any neck pain, back pain Neurological: Negative for any headache, syncope, dizziness Skin: Negative for any rashes, itching, abrasions, lacerations Psychiatric: Negative for any depression, suicidal ideation, homicidal ideation. Positive for anxiety, stress Hematologic: Negative for any excessive bruising, easy bleeding EXAM <ALEJANDRO Carson - Last Filed: 10/09/24 12:16> Physical Exam Narrative Exam Narrative: Vital signs reviewed. Patient is alert and orient x 4. Patient is no obvious distress. HEET: Head normocephalic atraumatic, TMs clear bilaterally. Posterior pharynx is clear, moist mucous membranes. Nares clear bilaterally. Neck: Supple with no lymphadenopathy or tenderness. No signs of meningismus. Cardiac: Regular rate and rhythm no murmurs gallops or rubs, equal peripheral pulses bilaterally. Respiratory: Lungs clear to auscultation bilaterally. No chest tenderness. Abdomen: Soft, nontender, nondistended. No abdominal bruit or pulsatile masses. No hepatosplenomegaly Extremities: No peripheral edema, no signs of gross trauma or deformity. Active full range of motion of all extremities. Neuro: Cranial nerves II through XII intact, no focal neurological deficits. Skin: Clean dry and intact with no rash, purpura, petechiae, vesicles or pustules. Backs/flank: No CVA tenderness, no midline spinal tenderness, no deformity. Psych: Normal mood and affect. No SI, HI or acute psychosis. Patient does seem anxious however patient is alert and oriented, mentating well. Patient does not look to be in any obvious distress. Const Vital Signs: 10/09/24 10:57 10/09/24 12:04 10/09/24 12:18 Temperature 96.2 F L 98.3 F Temperature Source Temporal Pulse Rate 79 89 85 Respiratory Rate 16 15 18 Blood Pressure 130/88 H 132/87 H 130/70 H Blood Pressure Mean 102 102 90 Pulse Ox 98 97 99 Oxygen Delivery Method Room Air Room Air Positive well nourished and well developed General Appearance ED: well developed <Dr. Regina Hassan DO - Last Filed: 10/09/24 14:02> Physical Exam Const Vital Signs: 10/09/24 10:57 10/09/24 12:04 10/09/24 12:18 Temperature 96.2 F L 98.3 F Temperature Source Temporal Pulse Rate 79 89 85 Respiratory Rate 16 15 18 Blood Pressure 130/88 H 132/87 H 130/70 H Blood Pressure Mean 102 102 90 Pulse Ox 98 97 99 Oxygen Delivery Method Room Air Room Air [facility] <ALEJANDRO Carson - Last Filed: 10/09/24 12:16> [facility] Treatment and Re-Evaluation :: Differential diagnosis includes however is not limited to: Anxiety, depression, alcohol withdrawal, suicidal ideation, homicidal ideation, increased stress Patient appears generally well, vital signs are stable, patient is nontoxic-a ppearing. Presenting to the emerged department for anxiety, increased stress. I spoke with the patient at length. I offered admission for alcohol detox, she refused. I also offered the patient to see the director of social work, she states at this time. She is in the [facility] program and has an appointment on Friday which is in 2 days. Patient will receive 1 L of normal saline, 1 mg of IV Ativan. Once patient is reevaluated, she would likely get hydroxyzine for home and will continue her progress outpatient which is what she prefers. Patient on reevaluation felt improvement. Patient be given hydroxyzine for home. She will continue to follow-up with the [facility]. She is happy the plan of care, all questions answered, patient's vital signs are stable, stable for discharge. <Dr. Regina Hassan, DO - Last Filed: 10/09/24 14:02> [facility] Treatment and Re-Evaluation :: Differential diagnosis includes however is not limited to: Anxiety, depression, alcohol withdrawal, suicidal ideation, homicidal ideation, increased stress Patient appears generally well, vital signs are stable, patient is nontoxic- appearing. Presenting to the emerged department for anxiety, increased stress. I spoke with the patient at length. I offered admission for alcohol detox, she refused. I also offered the patient to see the director of social work, she states at this time. She is in the [facility] program and has an appointment on Friday which is in 2 days. Patient will receive 1 L of normal saline, 1 mg of IV Ativan. Once patient is reevaluated, she would likely get hydroxyzine for home and will continue her progress outpatient which is what she prefers. Patient on reevaluation felt improvement. Patient be given hydroxyzine for home. She will continue to follow-up with the [facility] program. She is happy the plan of care, all questions answered, patient's vital signs are stable, stable for discharge. I have personally performed a face to face assessment of the patient and have reviewed the YANE Note. I performed a substantive portion of the visit including all aspects of the following. My ku findings include: History is This is a 44-year female history anxiety and alcohol use is permanently follows with [facility] and in an IOP presenting with increased anxiety None. She states she is feeling more shaky and also feels dehydrated. She denies any lightheadedness or dizziness. Denies any chest pain or shortness of breath. Denies any nausea or vomiting. Denies any HI or SI. On exam patient is anxious and mildly tremulous. Vital signs are normal. She is acting appropriately. Overall well-appearing. Vital signs not significant of acute alcohol withdrawal. Patient given IV fluids and dose of IV Ativan. On repeat evaluation she is much improved. She states she is feeling better. She is not interested admission for alcohol detox at this time as she is following up outpatient with her IOP. She feels comfortable going home and safe going home. Is valuated by social work in the ER. I will be given a short prescription for hydroxyzine to help with anxiety. Discharged home in stable condition. Medical Decison Making [ ] Other additions or changes: [None] Discharge Plan Triage Chief Complaint: Anxiety ED Midlevel Provider: Atnoni Regan ED Provider: Regina Hassan Dx/Rx/DC Orders Clinical Impression: Anxiety and depression, Alcohol abuse Instructions: Depression: Tips to Help Yourself, ED Anxiety Reaction Prescriptions: New hydroxyzine HCl 25 mg tablet 25 mg PO TID PRN (Reason: anxiety) 5 Days Qty: 14 0RF No Action phenazopyridine [Pyridium] 200 mg tablet 200 mg PO TID PRN (Reason: pain) Qty: 7 0RF naltrexone 50 mg tablet 50 mg PO DAILY trazodone 100 mg tablet 100 mg PO QHS buspirone 15 mg tablet 15 mg PO BID escitalopram oxalate 10 mg tablet 10 mg PO DAILY prazosin 2 mg capsule 2 mg PO QHS Primary Care Provider: Care Physician,No Primary Referrals: Deneen Grant PA [Non-Staff -Ordering Privileges] - Activity Restrictions/Additional Instructions: Continue following up with your programs. Take the hydroxyzine as needed for anxiety, nothing sleep. Return for any worsening symptoms. Print Language: Persian Disposition Disposition: Home, Self Care Discharge Date/Time: 10/09/24 12:24
[2024-10-09] MEDS: Lorazepam 2 MG/ML WCH Syringe 1 MG IV (11:21)
[2024-10-09] MEDS: 0.9% Normal Saline (1000mL) 1,000 ML 999 ML IV (11:21)
[2024-10-09 12:04] VITALS: BP 132/87; PULSE 89; RESP 15; O2SAT 97
--- NOTE | 2024-10-09 12:10 | CM.ED ---
Social Work: Date of referral: 10/09/24 Reason for referral: Anxiety Referred by: Social Work Identification Patient provided consent for social work visit. Patient stated she and her with whom patient has been with for 10 years recently decided to get , patient's moved out and emptied their bank account. Patient is an alcoholic and hasn't drank since last . Patient has 3 adult children, ages 25, 22, and 21. The 25 and 21 year old live together in [place] and the 22 year old is in college and will be coming back home soon. 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 Patient stated she is ok for now and still has secure housing and all basic needs are being met. Patient stated she is currently involved with [facility] and is in the IOP program. Helminthologist offered emotional resources and patient denied the need for any resources at this time. Darline Rea, GEOPHYSICAL ENGINEER, LENS CEMENTER
[2024-10-09 12:18] VITALS: BP 130/70; PULSE 85; RESP 18; TEMP 36.8; O2SAT 99
== END 2024-10-09 12:24 | disposition home or self-care (01) ==
PROVIDERS: Emergency Provider Emergency Medicine; Visit Provider Emergency Medicine
DX: F41.9 Anxiety disorder, unspecified (principal); F32.A Depression, unspecified; F10.10 Alcohol abuse, uncomplicated; Z87.891 Personal history of nicotine dependence
CPT/HCPCS: 96361; 96374; 96376; 99283